=== PATIENT | female | born 1940 | race American Indian/Alaskan Native ===

== ENCOUNTER 2017-07-10 13:57 | Inpatient (IN) | payer MEDICARE ==
--- NOTE | 2017-07-10 14:40 | ED PDOC ---
Arrival/HPI - General Chief Complaint: Weakness/Neurological Deficit Time Seen by Provider: 07/10/17 14:17 Historian: Patient - History of Present Illness Narrative History of Present Illness (Text): 07/10/17 14:40 77 year old female, with past medical history of CHF, diabetes, hypertension, diverticulitis, hypothyroidism, cholecystectomy and appendectomy, presents to the Emergency department via EMS for uncontrolled blood glucose level for past couple months. Patient informs taking insulin since 3 weeks but her glucose level has been around 300 to 500 mg/dL. Patient informs visiting her PMD Dr. White, who sent her to the Emergency department for further evaluation. Patient states she "doesn't fell well" but denies any fever, chills, nausea, vomiting, diarrhea, abdominal pain, chest pain, shortness of breath or any other complaints. PMD: Dr. White Time/Duration: > month Symptom Onset: Gradual Symptom Course: Unchanged Activities at Onset: Light Context: Home Past Medical History - Provider Review Nursing Documentation Reviewed: Yes - Infectious Disease Hx of Infectious Diseases: None - Tetanus Immunization Tetanus Immunization: Unknown - Reproductive Menopause: Yes - Cardiac Hx Cardiac Disorders: Yes Hx Congestive Heart Failure: Yes Hx Hypertension: Yes - Pulmonary Hx Chronic Obstructive Pulmonary Disease (COPD): Yes - Neurological Hx Neurological Disorder: No - HEENT Hx HEENT Disorder: Yes (Wears dentures.) - Renal Hx Renal Disorder: No - Endocrine/Metabolic Hx Hypothyroidism: Yes - Hematological/Oncological Hx Blood Disorders: Yes Hx Anemia: Yes - Integumentary Hx Dermatological Disorder: Yes Other/Comment: LLE Cellulitis - Musculoskeletal/Rheumatological Hx Arthritis: Yes (OA) - Gastrointestinal Hx Gastrointestinal Disorders: Yes (DIVERTICULITIS,CHOLECYSTECTOMY,APPENDECTOMY) - Genitourinary/Gynecological Hx Reproductive Disorders: No - Psychiatric Hx Psychophysiologic Disorder: No Hx Substance Use: No Other/Comment: OBESITY - Surgical History Hx Appendectomy: Yes Hx Cholecystectomy: Yes - Anesthesia Hx Anesthesia: Yes Hx Anesthesia Reactions: No Hx Malignant Hyperthermia: No - Suicidal Assessment Feels Threatened In Home Enviroment: No Family/Social History - Physician Review Nursing Documentation Reviewed: Yes Family/Social History: No Known Family HX Smoking Status: Never Smoked Hx Alcohol Use: No Hx Substance Use: No Hx Substance Use Treatment: No Allergies/Home Meds Allergies/Adverse Reactions: Allergies No Known Allergies Allergy (Verified 09/29/15 15:12) Home Medications: Home Meds Medication Instructions Recorded Confirmed Allopurinol [Zyloprim] 100 mg PO DAILY 03/13/15 07/10/17 Atorvastatin [Lipitor] 10 mg PO DAILY 03/13/15 07/10/17 Levothyroxine [Synthroid] 25 mcg PO DAILY 03/13/15 07/10/17 Losartan [Cozaar] 100 mg PO DAILY 03/13/15 07/10/17 Glimepiride [amaRYL] 4 mg PO BID 07/10/15 07/10/17 Gabapentin [Neurontin] 100 mg PO DAILY 07/10/17 07/10/17 Insulin Detemir [Levemir] 20 unit SC HS 07/10/17 07/10/17 Pantoprazole Sodium [Protonix] 40 mg PO DAILY 07/10/17 07/10/17 amLODIPine [Norvasc] 2.5 mg PO DAILY 07/10/17 07/10/17 Review of Systems - Physician Review All systems were reviewed & negative as marked: Yes - Review of Systems Constitutional: Normal. absent: Fevers Eyes: Normal ENT: Normal Respiratory: Normal. absent: SOB Cardiovascular: Normal. absent: Chest Pain Gastrointestinal: Normal. absent: Abdominal Pain, Diarrhea, Nausea, Vomiting Genitourinary Female: Normal Musculoskeletal: Normal Skin: Normal Neurological: Normal Endocrine: Other (high blood glucose level) Hemo/Lymphatic: Normal Psychiatric: Normal Physical Exam Vital Signs Reviewed: Yes Vital Signs Temp Pulse Resp BP Pulse Ox 07/10/17 14:15 98.1 F 104 H 20 122/68 94 L Temperature: Afebrile Blood Pressure: Normal Pulse: Tachycardic Respiratory Rate: Normal Appearance: Positive for: Well-Appearing, Non-Toxic, Comfortable Pain Distress: None Mental Status: Positive for: Alert and Oriented X 3 - Systems Exam Head: Present: Atraumatic, Normocephalic Pupils: Present: PERRL Extroacular Muscles: Present: EOMI Conjunctiva: Present: Normal Mouth: Present: Moist Mucous Membranes Neck: Present: Normal Range of Motion Respiratory/Chest: Present: Clear to Auscultation, Good Air Exchange. No: Respiratory Distress, Accessory Muscle Use Cardiovascular: Present: Regular Rate and Rhythm, Normal S1, S2. No: Murmurs Abdomen: No: Tenderness, Distention, Peritoneal Signs Back: Present: Normal Inspection Upper Extremity: Present: Normal Inspection. No: Cyanosis, Edema Lower Extremity: Present: Normal Inspection. No: Edema Neurological: Present: GCS=15, CN II-XII Intact, Speech Normal Skin: Present: Warm, Dry, Normal Color. No: Rashes Psychiatric: Present: Alert, Oriented x 3, Normal Insight, Normal Concentration Medical Decision Making ED Course and Treatment: 07/10/17 14:25 Impression: 77 year old female presents to the Emergency department for high blood glucose level. Plan: -- VBG -- Labs -- Chest X-ray -- Blood Culture -- Urine Culture -- Urinalysis -- Reassess and disposition Progress Notes: 07/10/17 14:[address] Goodman and Dr. Liang, who is aware and agrees with plan to treat patient with Keflex. Waiting on lab results. 07/10/17 15:17 EKG: Ordered, reviewed, and independently interpreted the EKG. Rate : 99 BPM Rhythm : NSR Interpretation : No ST-segment elevations or depressions, no T-wave inversions, normal intervals. 07/10/17 15:38 Chest X-ray reviewed by radiologist, shows no active disease. - Lab Interpretations Lab Results: 07/10/17 14:55 Lab Results 07/10/17 14:55: pO2 43, VBG pH 7.36, VBG pCO2 52.0, VBG HCO3 29.4 H, VBG Total CO2 31.0 H, VBG O2 Sat (Calc) 84.2 H, VBG Base Excess 2.8 H, VBG Potassium 4.1, Sodium 133.0, Chloride 99.0, Glucose 403 H*, Lactate 2.4 H, FiO2 21.0, Venous Blood Potassium 4.1 07/10/17 14:55: PT 11.3, INR 0.99 07/10/17 14:55: WBC 6.7 D, RBC 4.43, Hgb 13.7, Hct 40.0, MCV 90.3, MCH 30.9, MCHC 34.3, RDW 13.3, Plt Count 202, MPV 10.1, Gran % 63.5, Lymph % (Auto) 29.8, [place] % (Auto) 5.4, Eos % (Auto) 1.2 L, Baso % (Auto) 0.1, Gran # 4.27, Lymph # ( Auto) 2.0, [place] # (Auto) 0.4, Eos # (Auto) 0.1, Baso # (Auto) 0.01 07/10/17 14:11: POC Glucose (mg/dL) 351 H - RAD Interpretation Radiology Orders: 07/10/17 14:25 CHEST PORTABLE [RAD] Stat - Medication Orders Current Medication Orders: Sodium Chloride (Sodium Chloride 0.9%) 2,000 mls @ 999 mls/hr IV .Q2H1M STA Stop: 07/10/17 17:12 Discontinued Medications Insulin Human Regular (Humulin R) 7 units IVP ONCE ONE Stop: 07/10/17 15:14 Disposition/Present on Arrival - Present on Arrival History of DVT/PE: No History of Uncontrolled Diabetes: No Urinary Catheter: No History of Decub. Ulcer: No History Surgical Site Infection Following: None - Disposition
[2017-07-10 15:07] LABS: BASO # 0.01 K/mm3 (0.0-2.0); BASO % 0.1 % (0.0-3.0); EOS # 0.1 (0.0-0.7); EOS % 1.2 % (1.5-5.0); GRAN # 4.27 (1.4-6.5); GRAN % 63.5 % (50.0-68.0); HEMOGLOBIN 13.7 g/dL (12.0-16.0); LYMPH % 29.8 % (22.0-35.0); MEAN CELL VOLUME 90.3 fl (80.0-105.0); MEAN CORPUSCULAR HEMOGLOBIN 30.9 pg (25.0-35.0); MEAN CORPUSCULAR HGB CONC 34.3 g/dl (31.0-37.0); MEAN PLATELET VOLUME 10.1 fl (7.0-11.0); MONO # 0.4 (0.1-0.6); MONO % 5.4 % (1.0-6.0); RBC 4.43 10^6/uL (3.5-6.1); RED CELL DISTRIBUTION WIDTH 13.3 % (11.5-14.5); WHITE BLOOD COUNT 6.7 10^3/ul (4.5-11.0)
[2017-07-10 15:08] LABS: VENOUS BLOOD GAS BASE EXCESS 2.8 mmol/L (0.0-2.0); VENOUS BLOOD GAS PO2 43 mm/Hg (30-55); VENOUS BLOOD PH 7.36 (7.32-7.43)
[2017-07-10] MEDS ORDERED: Sodium Chloride 0.9% 2,000 ML IV STA (15:12)
[2017-07-10] MEDS ORDERED: Insulin Regular 1 UNITS/0.01 ML ML IVP ONE (15:13)
[2017-07-10 15:14] LABS: INR 0.99 (0.93-1.08); PROTHROMBIN TIME 11.3 SECONDS (9.4-12.5)
--- NOTE | 2017-07-10 15:36 | RAD ---
HISTORY: Chest Discomfort COMPARISON: 10/02/2015 FINDINGS: LUNGS: No active pulmonary disease. PLEURA: No significant pleural effusion identified, no pneumothorax apparent. CARDIOVASCULAR: Normal. OSSEOUS STRUCTURES: No significant abnormalities. VISUALIZED UPPER ABDOMEN: Normal. OTHER FINDINGS: None. IMPRESSION: No active disease.
[2017-07-10 16:02] LABS: BLOOD UREA NITROGEN 20 mg/dL (7-21); GFR AFRICAN-AMERICAN > 60; GFR NON-AFRICAN AMERICAN > 60
[2017-07-10 16:03] LABS: ALB/GLOB RATIO 1.2 (1.1-1.8); ALBUMIN 3.9 g/dL (3.0-4.8); ALT/SGPT 35 U/L (7-56); AST/SGOT 24 U/L (14-36); B-TYPE NATRIURETIC PEPTIDE 34.9 pg/mL (0-450); CALCIUM 9.9 mg/dL (8.4-10.5)
[2017-07-10 16:04] LABS: LIPASE 66 U/L (23-300)
[2017-07-10 16:06] LABS: URINE APPEARANCE SLIGHT-CLOUDY (CLEAR); URINE BILIRUBIN NEGATIVE (NEGATIVE); URINE BLOOD TRACE-LYSED (NEGATIVE); URINE COLOR LIGHT YELLOW (YELLOW); URINE GLUCOSE (UA) >=1000 mg/dL (NEGATIVE); URINE LEUKOCYTE ESTERASE MODERATE Leu/uL (NEGATIVE); URINE PROTEIN NEGATIVE mg/dL (<30 mg/dL); URINE UROBILINOGEN 0.2 E.U./dL (<1 E.U./dL)
[2017-07-10 16:13] LABS: URINE WBC TNTC /hpf (0-6)
[2017-07-10 16:34] LABS: TROPONIN I < 0.01 ng/mL
[2017-07-10 17:15] VITALS: BMI 46.7
[2017-07-10] MEDS ORDERED: Pneumococcal 23-Valent Vaccine IM ONE (17:17)
[2017-07-10 19:16] LABS: VENOUS BLOOD GAS BASE EXCESS 2.4 mmol/L (0.0-2.0); VENOUS BLOOD GAS PO2 42 mm/Hg (30-55); VENOUS BLOOD PH 7.36 (7.32-7.43)
[2017-07-10] MEDS ORDERED: Insulin Reg-HIGH-Coverage SC SCH (22:00)
[2017-07-10] MEDS ORDERED: Insulin Detemir 100 units/ml Vial (Levemir) SC SCH (22:00)
[2017-07-11 07:53] LABS: ALB/GLOB RATIO 1.1 (1.1-1.8); ALBUMIN 3.3 g/dL (3.0-4.8); ALT/SGPT 32 U/L (7-56); AST/SGOT 25 U/L (14-36); BLOOD UREA NITROGEN 16 mg/dL (7-21); CALCIUM 9.6 mg/dL (8.4-10.5); GFR AFRICAN-AMERICAN > 60; GFR NON-AFRICAN AMERICAN > 60
[2017-07-11] MEDS: Insulin Lispro (humaLOG) LOW Coverage SC SCH ×4 (07:56→22:01)
[2017-07-11] MEDS: Insulin Lispro 1 UNITS/0.01 ML SC SCH ×3 (07:56→17:27)
[2017-07-11 08:03] LABS: FREE T4 0.96 ng/dL (0.78-2.19); T4 6.6 ug/dL (5.5-11.0); TROPONIN I < 0.01 ng/mL
[2017-07-11] MEDS ORDERED: Levothyroxine 25 MCG TAB PO SCH (10:00)
[2017-07-11] MEDS ORDERED: Non Formulary Medication (Furosemide [Lasix] 40 MG) PO SCH (10:00)
[2017-07-11] MEDS: Pantoprazole 40 mg EC Tab PO SCH (10:18)
--- NOTE | 2017-07-11 11:14 | CON ---
DATE: ENDOCRINOLOGY CONSULTATION HISTORY OF PRESENT ILLNESS: This is a 77-year-old female with recent uncontrolled type 2 insulin-requiring diabetes presenting here with persistent marked hyperglycemic accelerations and generalized body weakness and progressive dizziness and lightheadedness prompting this ER evaluation and subsequent admission. She is being referred now for diabetic evaluation and management. PAST MEDICAL HISTORY: History of type 2 insulin-requiring diabetes, on a combination of Levemir given as 20 units subcu at bedtime daily with Amaryl given as 4 mg b.i.d.; history of hypertensive cardiovascular disease and dyslipidemia; history of coronary artery disease with previous admissions for congestive heart failure; history of chronic obstructive lung disease and also previous admissions for exacerbations of the same. She also has significant history of hypothyroidism, currently on levothyroxine given as 25 mcg daily; history of chronic gastritis and diverticulitis with prior admissions for abdominal pain. She has had a prior cholecystectomy and appendectomy as noted. FAMILY HISTORY: Positive for hypertension and diabetes. SOCIAL HISTORY: Patient has a supportive family. No known substance use. REVIEW OF SYSTEMS: As mentioned above. Admits to generalized body weakness with easy fatigability and tiredness and suboptimal energy level. Also admits to dizziness and lightheadedness worse on the day of admission with visual blurring and bifrontal headaches with suboptimal energy level. No chest pains or palpitations or PND, but her oral intake has been variable with nausea, dyspepsia and vague upper abdominal pains. Also admits to marked polyuria, nocturia, polydipsia and polyphagia with lower extremity painful paresthesias, especially nocturnally. PHYSICAL EXAMINATION: GENERAL: This is an obese female, in no apparent distress. VITAL SIGNS: Blood pressure of 150/90, pulse of 100 beats per minute and regular, temperature 98, respirations 20, height is 5 feet 4 inches, weight is 272 pounds. HEENT: Head normocephalic. Eyes anicteric with pink conjunctivae. Funduscopy not possible at this time. Ears, nose and throat otherwise normal. NECK: Supple. Thyroid gland is normal in size. No carotid bruits or any cervical adenopathy. CARDIOPULMONARY: Some adynamic precordium. S1, S2 is rapid and regular. LUNGS: Clear to auscultation. ABDOMEN: Flat, soft with positive bowel sounds. EXTREMITIES: No peripheral edema. Pulses are +2 bilaterally. LABORATORY DATA: Chemistry showed a BUN of 20, sodium 135, potassium 4.3, chloride 96, CO2 29, glucose 399 and creatinine 0.7. ASSESSMENT: This is a 77-year-old female with uncontrolled and decompensated type 2 insulin-requiring diabetes with marked hyperglycemic accelerations and associated dehydration with prerenal azotemia and spurious hyponatremia, most likely related to supervening secondary pancreatic especially in the light of underlying morbid obesity with increased insulin resistance and further impaired glucose tolerance thereof. PLAN OF MANAGEMENT: We will modify her current basal insulin and increase the Levemir to 30 units subcu at bedtime daily as ordered. We will modify the coverage scale to obviate hypoglycemia and detailed orders have been given. We will also be adding Humalog given as 6 units subcu t.i.d. before meals to start at breakfast time tomorrow morning as ordered. We will modify the coverage scale to obviate hypoglycemia and detailed orders have been given. We will also initiate diabetic education and dietary instructions especially for healthier food choices and weight loss efforts as noted. We will follow and advise accordingly. Ivory Wesley MD
--- NOTE | 2017-07-11 12:25 | PN ---
DATE: ENDOCRINOLOGY FOLLOWUP NOTE LOCATION: In room 365. SUBJECTIVE: This is a 77-year-old female with recent uncontrolled type 2 insulin-requiring diabetes, presenting here with marked hyperglycemic accelerations and associated generalized body weakness with increasing bouts of dizziness and lightheadedness prompting this eventual admission for further workup and management. Her glycemic levels are fluctuating, but improved and the latest glucose levels have ranged from 202-258 mg/dL. It was 304 at dinnertime last night as noted. Her latest chemistry showed a BUN of 16, sodium 138, potassium 4.1, chloride 100, CO2 of 32, glucose 223 and creatinine 0.6. Her latest thyroid study showed T4 of 6.6 with a TSH of 4.29 and a free T4 of 0.96 indicative of subclinical hypothyroidism as she is currently on levothyroxine replacement therapy. ASSESSMENT: This is a 77-year-old female with uncontrolled and decompensated type 2 insulin-requiring diabetes with a subtherapeutic insulin regimen at home given in combination with oral hypoglycemic therapy. She also has underlying morbid obesity, which can contribute to the increased insulin resistance and further impaired glucose tolerance thereof. PLAN OF MANAGEMENT: We will initiate more physiologic basal and bolus insulin drug combination with Humalog to be given as 6 units subcu t.i.d. before meals to start this morning as ordered. We will also increase the basal insulin with Levemir to be given as 30 units subcu at bedtime daily to start tonight. We will modify the coverage scale to obviate hypoglycemia and detailed orders have been given for Humalog insulin as given. We will also titrate her levothyroxine to a higher dose of 50 mcg once daily in the morning as ordered. We will obtain serial chemistries and supplement accordingly as needed and in the meantime, continue the IV hydration as ordered. We will obtain serial chemistries and supplement accordingly as needed. We will follow. Ivory Wesley MD
--- NOTE | 2017-07-11 16:26 | CARD ---
APPROVED REPORT EKG Measurement Heart [id number] <Conclusion> Normal sinus rhythm Septal infarct, age undetermined Possible Lateral infarct, age undetermined Abnormal ECG
[2017-07-11] MEDS ORDERED: Insulin Detemir 100 units/ml Vial (Levemir) SC SCH (22:00)
--- NOTE | 2017-07-12 01:19 | HP ---
DATE OF EXAM: 07/11/2017 HISTORY OF PRESENT ILLNESS: Ms. Meryl Pedro is a 77-year-old female with history of diabetes mellitus type 2, diverticulosis, hypothyroidism; presented with generalized weakness and headache. Blood sugar at home were in the range of 300 to 500 mg/dL. She was advised to go to the ER by PCP. No chills. No fever. No rigors. Diabetes mellitus has been uncontrolled. UA shows gram-positive cocci. Hypothyroidism controlled with current medications. PAST MEDICAL HISTORY: Hypertension, congestive cardiac failure, COPD, history of anemia, cellulitis, osteoarthritis. PAST SURGICAL HISTORY: Appendectomy and cholecystectomy. FAMILY HISTORY: Noncontributory. PERSONAL HISTORY: Never smoked. No history of alcohol abuse. ALLERGIES: NO KNOWN DRUG ALLERGIES. HOME MEDICATIONS: Allopurinol 100 mg daily, Lipitor 10 mg daily, levothyroxine 25 mcg daily, losartan 100 mg daily, ., Neurontin 100 mg daily, Levemir 20 units subcutaneous every 8, Protonix 40 mg daily, Norvasc 2.5 mg daily. REVIEW OF SYSTEMS: As per HPI. Rest of the 12-point review of systems reviewed, negative. PHYSICAL EXAMINATION: GENERAL: Comfortable in bed, in no acute distress. VITAL SIGNS: Temperature 98.1, heart rate 80 per minute, respiratory rate 18 per minute, blood pressure 120/60, pulse ox is 94% on room air. HEENT: normal. NECK: No lymphadenopathy. CHEST: Air entry present and equal bilaterally. No added sounds. CARDIOVASCULAR: S1 and S2 normal. No murmur. No gallop. ABDOMEN: Soft, nontender. No hepatosplenomegaly. EXTREMITIES: No edema. CENTRAL NERVOUS SYSTEM: Alert, oriented x3. No focal sensory or motor deficit. LABORATORY DATA: White count 6.7, hemoglobin 13.7, hematocrit 40, platelet count 202. Glucose 351. Sodium 138, potassium 4.1, BUN 16, creatinine 0.6, total bilirubin 0.6, TSH 4.2, T4 0.9. ASSESSMENT: 1. Diabetes mellitus type 2, uncontrolled. 2. Hypertension. 3. Chronic anemia. 4. Hypothyroidism. 5. History of congestive heart failure. PLAN: She will be admitted to the hospital. We will continue Norvasc 2.5 mg daily for hypertension, allopurinol 100 mg daily. Continue Lasix 40 mg p.o. daily, Neurontin 100 mg daily, Levemir 30 mg subcutaneous at bedtime, sliding scale insulin, Januvia 100 mg daily, Protonix [address] Endocrine consultation Dr. Wesley. Cardiology consultation by Dr. Cruz. We will continue to monitor blood counts. Urine culture, preliminary, gram-positive cocci; ceftriaxone 1 g daily ordered. Sue Villa MD [email or web address]
[2017-07-12] MEDS: Levothyroxine 25 MCG TAB PO SCH (09:04)
[2017-07-12] MEDS: Pantoprazole 40 mg EC Tab PO SCH (09:05)
[2017-07-12] MEDS: Insulin Lispro 1 UNITS/0.01 ML SC SCH ×3 (09:06→17:25)
[2017-07-12] MEDS: Insulin Lispro (humaLOG) LOW Coverage SC SCH ×4 (09:06→21:33)
[2017-07-12] MEDS: cefTRIAXone 1 gm 1 GM/100 ML BAG IVPB SCH (09:07)
--- NOTE | 2017-07-12 14:20 | PN ---
DATE: ENDOCRINOLOGY FOLLOWUP LOCATION: Room 365. This is a 77-year-old female with recent uncontrolled type 2 insulin-requiring diabetes presenting here with marked hyperglycemic accelerations despite a combination of basal insulin at bedtime and oral hypoglycemic therapy during today as given and is now being followed closely for metabolic management. Her glycemic levels are fluctuating but improved and the latest glucose levels overnight have ranged from 188 to 192 and 203 mg/dL. Her latest chemistry showed a BUN of 16, sodium 138, potassium 4.1, chloride 100, CO2 32, glucose 223 and creatinine 0.6. Her thyroid study showed a T4 of 6.6 with a TSH of 4.29 and a free T4 of 0.96 indicative of subclinical hypothyroidism as noted. ASSESSMENT: This is a 77-year-old female with uncontrolled and decompensated type 2 insulin-requiring diabetes with marked hyperglycemic accelerations related to a subtherapeutic insulin regimen. She was only using basal insulin at home with oral hypoglycemic therapy as given. The underlying morbid obesity and increased insulin resistance thereof. The patient clearly needs prandial insulin regimen to cover her mealtime glucose requirement. PLAN OF MANAGEMENT: We will modify once again her basal and bolus insulin regimen and increase the Humalog to 12 units subcutaneous t.i.d. before meals to start at dinnertime today as ordered. We will also continue the low-dose correction scale using Humalog insulin as given. We will modify also the basal insulin given overnight with Levemir to be given as 34 units subcutaneous at bedtime daily to start tonight. We will obtain serial chemistries and supplement accordingly as needed. We will follow and advise accordingly. ADDENDUM: Elective bedside discussion was undertaken with the patient regarding the imperative need for a more physiologic basal and bolus insulin drug combination to optimize her metabolic goals and improve her glycemic profile on a day-to-day basis. She clearly did not respond to basal insulin alone as given and outpatient. Ivory Wesley MD
--- NOTE | 2017-07-12 15:28 | PN ---
DATE: 07/12/2017 SUBJECTIVE: The patient is seen lying in bed on Remote Telemetry. She is comfortable. She denies any chest pain or arm discomfort. Blood glucose has been 100-200 on recent checks. CURRENT MEDICATIONS: Include Cozaar 100 mg daily, Glucophage 850 mg b.i.d., Humalog 10 units before the meals, Januvia 100 mg daily, Lasix 40 mg daily, Levemir insulin 30 units at bedtime, Lipitor 10 mg daily, Neurontin 100 mg daily, amlodipine 2.5 mg daily, Protonix, Rocephin, Synthroid and Zyloprim. OBJECTIVE: GENERAL: She is an obese elderly woman. VITAL SIGNS: Her blood pressure is 136/76 with a pulse of 80 and sinus, respirations are 16. She is afebrile. HEENT: No JVD or bruits. CHEST: Clear to auscultation and percussion. HEART: PMI displaced laterally with a soft systolic murmur at left sternal border. ABDOMEN: Soft, obese, nontender. Normoactive bowel sounds. EXTREMITIES: Chronic lymph edema. DIAGNOSTIC DATA: Morning blood work is pending. Cardiac enzymes were negative. IMPRESSION: 1. Chest and arm discomfort. No evidence of acute cardiac ischemia. 2. Poorly controlled diabetes, improved with insulin use. 3. History of hypertension and hyperlipidemia. RECOMMENDATIONS: Her current medications should be continued. The need for improved control discussed with her. An outpatient stress test will be arranged. From a cardiac standpoint, she appears stable for discharge home at this time. We will be happy to follow along. Kd Mckeon MD [facility]
[2017-07-12 17:01] VITALS: RESP 19; TEMP 98.3
--- NOTE | 2017-07-12 17:07 | PN ---
DATE: 07/12/2017 SUBJECTIVE: She is comfortable in bed, in no acute distress, feeling better. Her headache has resolved. She is ambulating in the room. Blood sugars are better controlled now. She is feeling less fatigued. No chest pain. No shortness of breath. Urine culture is positive for gram-positive cocci, currently on IV antibiotics. REVIEW OF SYSTEMS: As per HPI. Rest of 12-point review of systems reviewed negative. PHYSICAL EXAMINATION: GENERAL: Comfortable in bed, in no acute distress. VITAL SIGNS: Temperature 97.7, heart rate is 100 per minute, blood pressure 133/70, respiratory rate 20 per minute, oxygen saturation 95% on room air. HEENT: Pallor positive. NECK: No lymphadenopathy. CHEST: Air entry present, equal bilaterally. No added sounds. CARDIOVASCULAR: S1 and S2 normal. No murmur. No gallop. ABDOMEN: Soft, nontender. No hepatosplenomegaly. EXTREMITIES: No edema. CENTRAL NERVOUS SYSTEM: Alert, oriented x3. No focal sensory motor deficit. SKIN: No petechiae. No rash. SPINE: Nontender. LABORATORY DATA: White count 6.7, hemoglobin 13.7, hematocrit 40, platelet 202. Glucose 200, currently is 110. MEDICATIONS: Tylenol 650 every 4 hours p.r.n., allopurinol 100 mg daily, Norvasc 2.5 mg daily, Lipitor 10 mg daily, ceftriaxone 1 g daily, Neurontin 100 mg daily, Lasix 40 mg daily, Levemir 30 mg subcu at bedtime, insulin 12 units before breakfast and at bedtime, Synthroid 50 mcg daily, losartan 100 mg daily, metformin 850 b.i.d.,Januvia 100 mg daily, and Protonix 40 mg daily. ASSESSMENT: 1. Uncontrolled diabetes mellitus. 2. Hypertension. 3. Urinary tract infection. 4. Chronic anemia. PLAN: She is currently on Levemir and regular insulin. Endocrine consultation of Dr. Wesley appreciated. Ceftriaxone 1 g daily for UTI, sensitivity and culture pending. Continue Neurontin 100 mg daily for peripheral neuropathy, Lasix 40 mg daily, Tylenol 650 every 4 hours p.r.n. Hemoglobin and hematocrit stable. Likely, related to chronic disease and chronic kidney disease. Labs ordered for tomorrow. Encourage ambulation. Possible discharge tomorrow. Sue Villa MD [facility] # [id number]
[2017-07-12] MEDS ORDERED: Insulin Detemir 100 units/ml Vial (Levemir) SC SCH (22:00)
[2017-07-13 07:34] LABS: ALBUMIN 3.2 g/dL (3.0-4.8); CALCIUM 9.8 mg/dL (8.4-10.5)
[2017-07-13 07:51] VITALS: BP 135/77; PULSE 106; O2SAT 96
[2017-07-13] MEDS: Insulin Lispro (humaLOG) LOW Coverage SC SCH ×3 (07:58→16:50)
--- NOTE | 2017-07-13 08:20 | CP.PCM.PN ---
Subjective - Date & Time of Evaluation Date of Evaluation: 07/13/17 Time of Evaluation: 07:00 - Subjective Subjective: Stable on 3R. She feels better. No Chest Pain, Arm pain. No SOB. V/S noted. PE: Lungs: clear Cor.: S1S2 Abd.: soft Ext.: no edema Neuro.: alert BC X 2 NG at 48 hrs Urine C+S: + GPC Labs, BSs noted. Objective - Vital Signs/Intake and Output Vital Signs (last 24 hours): Temp Pulse Resp BP Pulse Ox 98.3 F 106 H 19 135/77 96 07/13/17 07:49 07/13/17 07:49 07/13/17 07:49 07/13/17 07:49 07/13/17 07:49 Intake and Output: 07/13/17 07/13/17 06:59 18:59 Intake Total 120 Balance 120 - Medications Medications: Current Medications Acetaminophen (Tylenol 325mg Tab) 650 mg PO Q4H PRN PRN Reason: Headache Last Admin: 07/10/17 20:46 Dose: 650 mg Allopurinol (Zyloprim) 100 mg PO DAILY [facility] Last Admin: 07/12/17 09:05 Dose: 100 mg Amlodipine Besylate (Norvasc) 2.5 mg PO DAILY [facility] Last Admin: 07/12/17 09:05 Dose: 2.5 mg Atorvastatin Calcium (Lipitor) 10 mg PO HS [facility] Last Admin: 07/12/17 21:32 Dose: 10 mg Furosemide (Lasix) 40 mg PO DAILY [facility] Last Admin: 07/12/17 09:05 Dose: 40 mg Gabapentin (Neurontin) 100 mg PO DAILY [facility] PRN Reason: Protocol Last Admin: 07/12/17 09:04 Dose: 100 mg Ceftriaxone Sodium (Rocephin 1 Gram Ivpb) 1 gm in 100 mls @ 100 mls/hr IVPB DAILY [facility] PRN Reason: Protocol Last Admin: 07/12/17 09:07 Dose: 100 mls/hr Insulin Detemir (Levemir) 34 unit SC HS [facility] Last Admin: 07/12/17 21:32 Dose: 34 unit Insulin Human Lispro (Humalog Low) 0 units SC ACHS [facility] PRN Reason: Protocol Last Admin: 07/13/17 07:58 Dose: Not Given Insulin Human Lispro (Humalog) 12 units SC AC [facility] Last Admin: 07/12/17 17:25 Dose: 12 units Levothyroxine Sodium (Synthroid) 50 mcg PO ACB [facility] Last Admin: 07/12/17 09:04 Dose: 50 mcg Losartan Potassium (Cozaar) 100 mg PO DAILY [facility] Last Admin: 07/12/17 09:05 Dose: 100 mg Metformin HCl (Glucophage) 850 mg PO BID [facility] Last Admin: 07/12/17 17:28 Dose: 850 mg Pantoprazole Sodium (Protonix Ec Tab) 40 mg PO DAILY [facility] Last Admin: 07/12/17 09:05 Dose: 40 mg Sitagliptin Phosphate (Januvia) 100 mg PO DAILY [facility] Last Admin: 07/12/17 09:04 Dose: 100 mg - Labs Labs: 07/13/17 05:45 PT 11.3 SECONDS (9.4-12.5) 07/10/17 14:55 INR 0.99 (0.93-1.08) 07/10/17 14:55 Assessment and Plan - Assessment and Plan (Free Text) Assessment: Chest and Left Arm Pain Diabetes, poorly controlled UTI HBP Obesity HLD Hypothyroidism H/O GB surgery and appendectomy As per Medicine and Endocrinology Plan out-pt nuclear stress test OOB as herve.
[2017-07-13] MEDS: Levothyroxine 25 MCG TAB PO SCH (08:28)
[2017-07-13] MEDS: Insulin Lispro 1 UNITS/0.01 ML SC SCH ×2 (08:28→12:29)
--- NOTE | 2017-07-13 09:39 | CON ---
DATE: 07/11/2017 REQUESTING PHYSICIAN: Dr. Holden REASON FOR CONSULTATION: Chest pain. HISTORY OF PRESENT ILLNESS: This is a 77-year-old woman with a history of diabetes who was sent to the emergency room from Dr. White's office yesterday with complaints of headache, arm and chest discomfort, and weakness. She has history of poorly controlled diabetes and had been recommended insulin therapy in the past, but apparently refused. Upon arrival, electrocardiogram showed nonspecific changes and she is currently pain free. She states that most of her pain involves her left arm and is unrelated to activities. She denies any associated dyspnea. Her past history is also notable for hypertension, hypothyroidism. She has undergone a prior cholecystectomy, appendectomy, and has a history of diverticulitis as well. CURRENT MEDICATIONS: Include Cozaar 100 mg daily, Glucophage 850 mg b.i.d., insulin, Januvia 100 mg daily, Lasix 40 mg daily, Levemir insulin 30 units at bedtime, Lipitor 10 mg daily, Neurontin, Norvasc 2.5 mg daily, Protonix 40 mg daily, Synthroid 25 mcg daily, and Zyloprim. ALLERGIES: NONE. SOCIAL HISTORY: She does not smoke or drink. FAMILY HISTORY: Both parents are from age-related illness. REVIEW OF SYSTEMS: Ten-point review of systems is otherwise unremarkable. PHYSICAL EXAMINATION: GENERAL: She is an obese elderly woman. VITAL SIGNS: Her blood pressure is 136/76 with pulse of 86 and sinus, respirations 14. She is afebrile. HEENT: Normocephalic, atraumatic. NECK: Supple. No JVD noted. CHEST: Few scattered rhonchi heard. HEART: PMI displaced laterally. Heart tones are distant and no pathological gallops noted. ABDOMEN: Soft, obese, nontender. Normoactive bowel sounds. EXTREMITIES: Bilateral lymph edema is present. Her left leg is wrapped. PSYCHIATRIC: Normal mood and affect. NEUROLOGIC: No gross motor or sensory deficits appreciable. She is alert and oriented x3. DIAGNOSTIC DATA: Potassium is 4.1. BUN and creatinine 16 and 0.6. Glucose is 223. Two sets cardiac enzymes are normal. White count 6.7, hemoglobin and hematocrit 13.7 and 40 with a platelet count 202,000. Electrocardiogram reveals sinus rhythm with nonspecific ST-T abnormalities. Chest x-ray reveals normal cardiac silhouette with clear lung ann. IMPRESSION: 1. Vague chest and arm discomfort, sounds more likely neuropathic in nature and doubt active cardiac ischemia at the present time. 2. Multiple cardiac risk factors given hypertension, diabetes, and age. 3. Poorly controlled diabetes, now on insulin therapy. RECOMMENDATIONS: Intensified therapy for her diabetes is advised. Third set of cardiac enzymes is pending and will be reviewed. An eventual stress test should be planned. This can be performed as an outpatient. The need for control of her diabetes and risk factors was discussed with her. Thank you for this consultation. We will be happy to follow along as needed. Kd Mckeon MD
[2017-07-13] MEDS: Pantoprazole 40 mg EC Tab PO SCH (10:02)
[2017-07-13] MEDS: cefTRIAXone 1 gm 1 GM/100 ML BAG IVPB SCH (10:02)
--- NOTE | 2017-07-13 11:30 | DS ---
HISTORY OF PRESENT ILLNESS: The patient has no complaints of any chest pain. No shortness of breath. No headaches or dizziness. She initially was admitted to the hospital because she had uncontrolled diabetes. Her sugars have been better controlled with the regimen that was placed on by Dr. Wesley, the order selector on the case. PHYSICAL EXAMINATION: VITAL SIGNS: Temperature is 98.3, pulse of 106, blood pressure is 135/77, respirations 19. GENERAL: The patient is lying in bed, flat, comfortable. HEENT: No oral lesion. Anicteric sclerae. Moist mucosa. NECK: No JVD, adenopathy, or thyromegaly. CARDIOVASCULAR: S1 and S2, regular. No murmurs, rubs, or gallops. LUNGS: Clear to auscultation bilaterally. No wheeze, rales, or rhonchi. ABDOMEN: Bowel sounds are positive, soft, nontender and nondistended. EXTREMITIES: No cyanosis, clubbing or edema. LABORATORY DATA: Creatinine is 1.2. ASSESSMENT: 1. Diabetes type 2, improved. 2. Hypertension. 3. Urinary tract infection secondary to gram-positive cocci. 4. Obese with a body mass index of 46. PLAN: The patient is currently admitted to the hospital. She is on metformin, Januvia, Humalog and Levemir for her diabetes. She gets much better. I did speak to the patient's order selector, Dr. Wesley. She suggested that the patient should continue her current regimen. The patient is on Lipitor for dyslipidemia. She is on Neurontin for neuropathy. She is on Norvasc for hypertension. The patient is on Synthroid for hypothyroidism. She is on a heart-healthy diet. The patient has urine cultures that are positive and the results are pending. We will wait for the results and then see if the patient can have her IV antibiotics changed over to p.o. CONDITION: Stable. ACTIVITIES: Increase as tolerated. FOLLOWUP: Follow with Dr. White in 1 to 2 weeks. Praneeth Holden MD
--- NOTE | 2017-07-14 09:00 | PN ---
DATE: 07/13/2017 ENDOCRINOLOGY FOLLOWUP NOTE LOCATION: In room 365. SUBJECTIVE: This is a 77-year-old female with recent uncontrolled type 2 insulin-requiring diabetes, now presenting here with marked hyperglycemic accelerations and clearly has suboptimal metabolic profile with an A1c of 13.7%, and has been given a more physiologic basal and bolus insulin drug combination with remarkable metabolic improvement thereof. Her glucose values today have ranged from 136 to 140 mg/dL, and it was 113 at bedtime last night. Her latest chemistry showed a BUN of 30, sodium 138, potassium 4.3, chloride 99, CO2 of 33, glucose 149, and creatinine of 1.2. ASSESSMENT AND PLAN: So at this time, we will continue the same basal and bolus insulin regimen with Humalog given as 12 units subcu t.i.d. before meals and Levemir given as 34 units subcu at bedtime daily as given. We will continue also the oral hypoglycemic therapy given as Januvia at 100 mg daily and metformin at 850 mg t.i.d. The patient actually has to be taught insulin self-administration as her granddaughter apparently has been giving the insulin at home. The imperative need for tighter metabolic control emphasized at this time. We will follow. Ivory Wesley MD
== END 2017-07-13 18:21 | disposition home health service (06) | DRG 638 ==
LOC: ED 13:57 → ERH 15:14 → 3RNO 16:38
PROVIDERS: ADMIT Internal Medicine Nephrology; ATTEND Internal Medicine Nephrology
DX: E11.65 Type 2 diabetes mellitus with hyperglycemia (principal); E87.1 Hypo-osmolality and hyponatremia; N39.0 Urinary tract infection, site not specified; Z68.42 Body mass index [BMI] 45.0-49.9, adult; E11.42 Type 2 diabetes mellitus with diabetic polyneuropathy; D64.9 Anemia, unspecified; E03.9 Hypothyroidism, unspecified; E66.01 Morbid (severe) obesity due to excess calories; E78.5 Hyperlipidemia, unspecified; E86.0 Dehydration; I11.0 Hypertensive heart disease with heart failure; I25.10 Atherosclerotic heart disease of native coronary artery without angina pectoris; I50.9 Heart failure, unspecified; J44.9 Chronic obstructive pulmonary disease, unspecified; Z79.4 Long term (current) use of insulin; Z79.899 Other long term (current) drug therapy; Z90.49 Acquired absence of other specified parts of digestive tract

== ENCOUNTER 2017-10-26 14:15 | Emergency (ER) | payer MEDICARE, BC ==
--- NOTE | 2017-10-26 14:35 | ED PDOC ---
Arrival/HPI - General Time Seen by Provider: 10/26/17 14:22 Historian: Patient, Spouse - History of Present Illness Narrative History of Present Illness (Text): 10/26/17 14:34 Patient is not in the room 10/26/17 14:48 This 77 year old female, with past medical history of CHF, diabetes, hypertension, diverticulitis, hypothyroidism, cholecystectomy and appendectomy, presents to the Emergency department c/o of feeling chills x 3 days. Patient stated she saw Dr. Avendano to day for her routine Perinatal Nurse evaluation. Dr. Avendano found patient to have 2 new right lower leg diabetic ulcers. Because of the ulcer and patient c/o chills, patient was recommended to come to ED for evaluation. Patient denies other complains. Time/Duration: Other (see hpi) Context: Home Past Medical History - Provider Review Nursing Documentation Reviewed: Yes - Infectious Disease Hx of Infectious Diseases: None - Tetanus Immunization Tetanus Immunization: Unknown - Cardiac Hx Cardiac Disorders: Yes Hx Congestive Heart Failure: Yes Hx Hypertension: Yes - Pulmonary Hx Chronic Obstructive Pulmonary Disease (COPD): Yes - Neurological Hx Neurological Disorder: No - HEENT Hx HEENT Disorder: Yes (Wears dentures.) - Renal Hx Renal Disorder: No - Endocrine/Metabolic Hx Hypothyroidism: Yes - Hematological/Oncological Hx Blood Disorders: Yes Hx Anemia: Yes - Integumentary Hx Dermatological Disorder: Yes Other/Comment: LLE Cellulitis - Musculoskeletal/Rheumatological Hx Arthritis: Yes (OA) - Gastrointestinal Hx Gastrointestinal Disorders: Yes (DIVERTICULITIS,CHOLECYSTECTOMY,APPENDECTOMY) - Genitourinary/Gynecological Hx Reproductive Disorders: No - Psychiatric Hx Psychophysiologic Disorder: No Hx Substance Use: No Other/Comment: OBESITY - Surgical History Hx Appendectomy: Yes Hx Cholecystectomy: Yes - Anesthesia Hx Anesthesia: Yes Hx Anesthesia Reactions: No Hx Malignant Hyperthermia: No - Suicidal Assessment Feels Threatened In Home Enviroment: No Family/Social History - Physician Review Nursing Documentation Reviewed: Yes Family/Social History: Other (noncontributory) Smoking Status: Never Smoked Hx Alcohol Use: No Hx Substance Use: No Hx Substance Use Treatment: No Allergies/Home Meds Allergies/Adverse Reactions: Allergies No Known Allergies Allergy (Verified 09/29/15 15:12) Home Medications: Home Meds Medication Instructions Recorded Confirmed Levothyroxine [Synthroid] 25 mcg PO DAILY 03/13/15 10/26/17 Review of Systems - Review of Systems Constitutional: Normal. absent: Fatigue, Weight Change, Fevers Eyes: Normal ENT: Normal Respiratory: Normal Cardiovascular: Normal Gastrointestinal: Normal Genitourinary Female: Normal Musculoskeletal: Normal Skin: Other (see hpi) Neurological: Normal Endocrine: Normal Hemo/Lymphatic: Normal Psychiatric: Normal Physical Exam Vital Signs Temp Pulse Resp BP Pulse Ox 10/26/17 19:50 76 18 146/78 98 10/26/17 14:16 98.1 F 90 18 150/98 H 96 Temperature: Afebrile Blood Pressure: Normal Pulse: Regular Respiratory Rate: Normal Appearance: Positive for: Well-Appearing, Non-Toxic, Comfortable Pain Distress: None Mental Status: Positive for: Alert and Oriented X 3 - Systems Exam Head: Present: Atraumatic, Normocephalic Pupils: Present: PERRL Extroacular Muscles: Present: EOMI Conjunctiva: Present: Normal Mouth: Present: Moist Mucous Membranes Neck: Present: Normal Range of Motion Respiratory/Chest: Present: Clear to Auscultation, Good Air Exchange. No: Respiratory Distress, Accessory Muscle Use Cardiovascular: Present: Regular Rate and Rhythm, Normal S1, S2. No: Murmurs Abdomen: No: Tenderness, Distention, Peritoneal Signs Back: Present: Normal Inspection Upper Extremity: Present: Normal Inspection. No: Cyanosis, Edema Lower Extremity: Present: NORMAL PULSES, Normal ROM, Neurovascularly Intact, Capillary Refill < 2 s, Other ((+) 3 cm ulcer statge 2 located right anterior lower leg, and 1 cm ulcer stage 2 posterior right lower leg. Right lower leg has extensive plaque over skin.). No: Edema, CALF TENDERNESS, Temperature Abnormalties Neurological: Present: GCS=15, CN II-XII Intact, Speech Normal Skin: Present: Warm, Dry, Normal Color. No: Rashes Psychiatric: Present: Alert, Oriented x 3, Normal Insight, Normal Concentration Medical Decision Making ED Course and Treatment: 10/26/17 19:35 I offered patient to be admitted for diabetic leg ulcers and chills. Patient stated she feels well, and she prefers to see her doctor as out-patient. Re-evaluation. Patient feels better. Discussed results and plan with patient who expresses understanding. All questions answered and there is agreement with the plan to discharge home with instructions. Patient stable for discharge. Return if symptoms persist or worsen. Re-evaluation Time: 19:38 Reassessment Condition: Re-examined, Improved - Lab Interpretations Lab Results: 10/26/17 15:50 10/26/17 15:50 Lab Results 10/26/17 18:10: POC Glucose (mg/dL) 81 10/26/17 18:00: Urine Color Yellow, Urine Appearance Clear, Urine pH 6.0, Ur Specific [place] 1.025, Urine Protein Negative, Urine Glucose (UA) Negative, Urine Ketones Negative, Urine Blood Negative, Urine Nitrate Negative, Urine Bilirubin Negative, Urine Urobilinogen 0.2, Ur Leukocyte Esterase Negative 10/26/17 17:00: POC Glucose (mg/dL) 64 L 10/26/17 15:50: Sodium 144, Chloride 102, Potassium 4.2, Carbon Dioxide 31, Anion Gap 15, BUN 28 H, Creatinine 0.9, Est GFR ( Amer) > 60, Est GFR ( Non-Af Amer) > 60, Random Glucose 77, Calcium 9.2, Phosphorus 3.8, Magnesium 2.1 , Total Bilirubin 0.4, AST 41 H D, ALT 37, Alkaline Phosphatase 82, Total Protein 8.0, Albumin 4.1, Globulin 4.0, Albumin/Globulin Ratio 1.0 L 10/26/17 15:50: pO2 45, VBG pH 7.32, VBG pCO2 63.0 H, VBG HCO3 32.5 H, VBG Total CO2 34.4 H, VBG O2 Sat (Calc) 83.4 H, VBG Base Excess 4.5 H, VBG Potassium 4.1, Sodium 141.0, Chloride 108.0 H, Glucose 74, Lactate 1.4, FiO2 21.0, Venous Blood Potassium 4.1 10/26/17 15:50: PT 11.5, INR 1.01, APTT 24.5 L 10/26/17 15:50: Procalcitonin 0.25 10/26/17 15:50: WBC 9.8 D, RBC 3.79, Hgb 11.5 L D, Hct 34.8 L, MCV 91.8, MCH 30.3, MCHC 33.0, RDW 14.8 H, Plt Count 262, MPV 9.5, Gran % 66.5, Lymph % (Auto ) 25.2, Day % (Auto) 6.6 H, Eos % (Auto) 1.5, Baso % (Auto) 0.2, Gran # 6.48, Lymph # (Auto) 2.5, Day # (Auto) 0.6, Eos # (Auto) 0.2, Baso # (Auto) 0.02, ESR 58 H I have reviewed the lab results: Yes Interpretation: No sign. chg./baseline - RAD Interpretation Radiology Orders: 10/26/17 15:07 CHEST PORTABLE [RAD] Stat - EKG Interpretation Interpreted by ED Physician: Yes (NSR @ [address] changes) Type: 12 lead EKG Comparison: Similar to previous EKG - Medication Orders Current Medication Orders: Discontinued Medications Vancomycin HCl (Vancomycin 1gm) 1 gm in 250 mls @ 167 mls/hr IVPB STAT STA PRN Reason: Protocol Stop: 10/26/17 16:35 Last Admin: 10/26/17 18:08 Dose: 167 mls/hr eMAR Start Stop Document 10/26/17 18:08 GMD (Rec: 10/26/17 18:08 GMD [id number]) Intravenous Solution Start Date 10/26/17 Start Time 18:08 End Date 10/26/17 End time 19:38 Total Infusion Time 90 Piperacillin Sod/Tazobactam Sod (Zosyn 4.5 Gm In Ns 100ml) 4.5 gm in 100 mls @ 200 mls/hr IVPB STAT STA PRN Reason: Protocol Stop: 10/26/17 15:35 Last Admin: 10/26/17 16:55 Dose: 200 mls/hr eMAR Start Stop Document 10/26/17 16:55 GMD (Rec: 10/26/17 16:55 GMD [id number]) Intravenous Solution Start Date 10/26/17 Start Time 16:55 End Date 10/26/17 End time 17:25 Total Infusion Time 30 Disposition/Present on Arrival - Present on Arrival Any Indicators Present on Arrival: No History of DVT/PE: No History of Uncontrolled Diabetes: No Urinary Catheter: No History Surgical Site Infection Following: None - Disposition Have Diagnosis and Disposition been Completed?: Yes Diagnosis: 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 Take medication as instructed with food. Return to emergency if you develop fever or worsening symptoms. Make sure to see your doctor tomorrow Prescriptions: Cephalexin [Keflex] 500 mg PO QID #40 capsule Sulfamethoxazole/Trimethoprim [Bactrim DS 800 mg-160 mg] 1 tab PO BID #20 tab Referrals: Gladys White MD [Family Provider] - Follow up with primary
[2017-10-26 15:00] VITALS: BMI 45.2
[2017-10-26] MEDS ORDERED: Piperacill/Tazo 4.5gm in NS 4.5 GM/100 ML BAG IVPB STA (15:06)
[2017-10-26] MEDS ORDERED: Vancomycin 1gm in NS 250ml 1 GM/250 ML BAG IVPB STA (15:06)
[2017-10-26 16:12] LABS: VENOUS BLOOD GAS BASE EXCESS 4.5 mmol/L (0.0-2.0); VENOUS BLOOD GAS PO2 45 mm/Hg (30-55); VENOUS BLOOD PH 7.32 (7.32-7.43)
[2017-10-26 16:21] VITALS: RESP 18
[2017-10-26 16:25] VITALS: TEMP 98.1
[2017-10-26 16:31] LABS: ALBUMIN 4.1 g/dL (3.0-4.8); ALT/SGPT 37 U/L (7-56); AST/SGOT 41 U/L (14-36); BLOOD UREA NITROGEN 28 mg/dL (7-21); CALCIUM 9.2 mg/dL (8.4-10.5); GFR AFRICAN-AMERICAN > 60; GFR NON-AFRICAN AMERICAN > 60
[2017-10-26 16:33] LABS: BASO # 0.02 K/mm3 (0.0-2.0); BASO % 0.2 % (0.0-3.0); EOS # 0.2 (0.0-0.7); EOS % 1.5 % (1.5-5.0); GRAN # 6.48 (1.4-6.5); GRAN % 66.5 % (50.0-68.0); HEMOGLOBIN 11.5 g/dL (12.0-16.0); LYMPH # 2.5 (1.2-3.4); LYMPH % 25.2 % (22.0-35.0); MEAN CELL VOLUME 91.8 fl (80.0-105.0); MEAN CORPUSCULAR HEMOGLOBIN 30.3 pg (25.0-35.0); MEAN PLATELET VOLUME 9.5 fl (7.0-11.0); MONO # 0.6 (0.1-0.6); MONO % 6.6 % (1.0-6.0); RBC 3.79 10^6/uL (3.5-6.1); RED CELL DISTRIBUTION WIDTH 14.8 % (11.5-14.5); WHITE BLOOD COUNT 9.8 10^3/ul (4.5-11.0)
--- NOTE | 2017-10-26 16:52 | RAD ---
Date of service: 10/26/2017 HISTORY: Sepsis Patient COMPARISON: 07/10/2017. FINDINGS: LUNGS: No active pulmonary disease. PLEURA: No significant pleural effusion identified, no pneumothorax apparent. CARDIOVASCULAR: No radiographic findings to suggest acute or significant cardiovascular disease. OSSEOUS STRUCTURES: No significant abnormalities. VISUALIZED UPPER ABDOMEN: Normal. OTHER FINDINGS: None. IMPRESSION: No active disease. No significant interval change compared to the prior examination(s). Concordant results with the preliminary interpretation rendered by the emergency department physician procedure.
[2017-10-26 16:56] LABS: INR 1.01 (0.93-1.08); PARTIAL THROMBOPLASTIN TIME 24.5 Seconds (25.1-36.5); PROTHROMBIN TIME 11.5 SECONDS (9.4-12.5)
--- NOTE | 2017-10-26 19:06 | CARD ---
APPROVED REPORT Date of service: 10/26/2017 EKG Measurement Heart [id number] ME [id number] <Conclusion> Poor data quality, interpretation may be adversely affected Sinus rhythm with marked sinus arrhythmia Possible Anterior infarct, age undetermined Abnormal ECG
[2017-10-26 19:09] LABS: URINE APPEARANCE CLEAR (CLEAR); URINE BILIRUBIN NEGATIVE (NEGATIVE); URINE BLOOD NEGATIVE (NEGATIVE); URINE COLOR YELLOW (YELLOW); URINE GLUCOSE (UA) NEGATIVE (NEGATIVE); URINE LEUKOCYTE ESTERASE NEGATIVE Leu/uL (NEGATIVE); URINE PROTEIN NEGATIVE mg/dL (<30 mg/dL); URINE UROBILINOGEN 0.2 E.U./dL (<1 E.U./dL)
[2017-10-26 19:50] VITALS: BP 146/78; PULSE 76; O2SAT 98
== END 2017-10-26 21:27 | disposition home or self-care (01) ==
LOC: ED 14:15
DX: E10.622 Type 1 diabetes mellitus with other skin ulcer (principal); R68.83 Chills (without fever); E03.9 Hypothyroidism, unspecified; I50.9 Heart failure, unspecified
CPT/HCPCS: 71045; 80053; 81003; 82803; 82948; 83735; 84100; 84145; 85025; 85610; 85651; 85730; 87040; 87086; 93005; 96365; 96367; 99285; J2543

== ENCOUNTER 2018-03-19 19:19 | Inpatient (IN) | payer MEDICARE, BC ==
--- NOTE | 2018-03-19 20:13 | ED PDOC ---
Arrival/HPI - General Chief Complaint: Lower Extremity Problem/Injury Time Seen by Provider: 03/19/18 19:51 Historian: Patient - History of Present Illness Narrative History of Present Illness (Text): 03/19/18 20:12 78 year old female, whose past medical history includes CHF, COPD, chronic hemostasis, bilateral lower extremity lymphedema, hypertension, hypothyroidism, hyperlipidemia, cholecystectomy, appendectomy, presents to the emergency department complaining of worsening swelling, redness, and pain to her bilateral thighs. Patient had her legs wrapped by Dr. Avendano flavor maker. She reports a chill sensation to her right leg. Patient reports her legs are very swollen right now and has difficulty walking associated with shortness of breath while walking. She also reports her urine is very dark, but denies any fever, chest pain, abdominal pain, nausea, vomiting, diarrhea, urinary symptoms, back pain, neck pain, headache, dizziness, or any other complaints. PMD: Dr. White Can Sealer: Dr. Avendano Symptom Onset: Gradual Symptom Course: Worsening Activities at Onset: Light Context: Home Past Medical History - Provider Review Nursing Documentation Reviewed: Yes - Infectious Disease Hx of Infectious Diseases: None - Tetanus Immunization Tetanus Immunization: Unknown - Reproductive Menopause: Yes - Cardiac Hx Cardiac Disorders: Yes Hx Congestive Heart Failure: Yes Hx Hypertension: Yes - Pulmonary Hx Chronic Obstructive Pulmonary Disease (COPD): Yes - Neurological Hx Neurological Disorder: No - HEENT Hx HEENT Disorder: Yes (Wears dentures.) - Renal Hx Renal Disorder: No - Endocrine/Metabolic Hx Hypothyroidism: Yes - Hematological/Oncological Hx Blood Disorders: Yes Hx Anemia: Yes - Integumentary Hx Dermatological Disorder: Yes Other/Comment: LLE Cellulitis - Musculoskeletal/Rheumatological Hx Arthritis: Yes (OA) - Gastrointestinal Hx Gastrointestinal Disorders: Yes (DIVERTICULITIS,CHOLECYSTECTOMY,APPENDECTOMY) - Genitourinary/Gynecological Hx Reproductive Disorders: No - Psychiatric Hx Psychophysiologic Disorder: No Hx Substance Use: No Other/Comment: OBESITY - Surgical History Hx Appendectomy: Yes Hx Cholecystectomy: Yes - Anesthesia Hx Anesthesia: Yes Hx Anesthesia Reactions: No Hx Malignant Hyperthermia: No - Suicidal Assessment Feels Threatened In Home Enviroment: No Family/Social History - Physician Review Nursing Documentation Reviewed: Yes Family/Social History: No Known Family HX Smoking Status: Never Smoked Hx Alcohol Use: No Hx Substance Use: No Hx Substance Use Treatment: No Allergies/Home Meds Allergies/Adverse Reactions: Allergies No Known Allergies Allergy (Verified 03/19/18 19:35) Home Medications: Home Meds Medication Instructions Recorded Confirmed Levothyroxine [Synthroid] 25 mcg PO DAILY 03/13/15 10/26/17 Review of Systems - Physician Review All systems were reviewed & negative as marked: Yes - Review of Systems Constitutional: absent: Fevers Cardiovascular: MURRAY. absent: Chest Pain Gastrointestinal: absent: Abdominal Pain, Diarrhea, Nausea, Vomiting Genitourinary Female: Other (dark urine). absent: Dysuria, Frequency, Hematuria Musculoskeletal: Other (swelling, redness, and pain to legs). absent: Back Pain, Neck Pain Neurological: absent: Headache, Dizziness Physical Exam Vital Signs Reviewed: Yes Vital Signs Temp Pulse Resp BP Pulse Ox 03/19/18 19:35 98.7 F 86 18 136/63 97 Temperature: Afebrile Blood Pressure: Normal Pulse: Regular Respiratory Rate: Normal Appearance: Positive for: Well-Appearing, Non-Toxic, Comfortable Pain Distress: None Mental Status: Positive for: Alert and Oriented X 3, other (morbidly obese ) - Systems Exam Head: Present: Atraumatic, Normocephalic Pupils: Present: PERRL Extroacular Muscles: Present: EOMI Conjunctiva: Present: Normal Mouth: Present: Moist Mucous Membranes Neck: Present: Normal Range of Motion Respiratory/Chest: Present: Other (Crackles). No: Respiratory Distress, Accessory Muscle Use Cardiovascular: Present: Regular Rate and Rhythm, Normal S1, S2. No: Murmurs Abdomen: No: Tenderness, Distention, Peritoneal Signs Back: Present: Normal Inspection Upper Extremity: Present: Normal Inspection. No: Cyanosis, Edema Lower Extremity: Present: NORMAL PULSES (Distal pulses intact), Tenderness (to palpation to thighs), Erythema (thighs erythematous edematous), Other (Chronic venous stasis changes. LE skin intact, no drainage ) Neurological: Present: GCS=15, CN II-XII Intact, Speech Normal Skin: Present: Warm, Dry, Normal Color, Other (Lower extremity skin black flaking). No: Rashes Psychiatric: Present: Alert, Oriented x 3, Normal Insight, Normal Concentration Medical Decision Making ED Course and Treatment: 03/19/18 20:12 Impression: 78 year old female presents complaining of worsening swelling, redness, and pain to the bilateral thighs associated with difficulty walking. Plan: -- EKG -- Labs -- CXR -- Blood Culture, Urine Culture -- Urinalysis -- Reassess and disposition Prior Visits: Notes and results from previous visits were reviewed. Progress Notes: 03/19/18 20:43 CXR Impression: As read by me, no changes from pervious 10/26/17 03/19/18 21:[address] Holden covering Dr. White who is aware and agrees with plan. Accepts patient into his service and request consult with Dr. Cruz. 03/19/18 22:03 Patient states she took Lasix today, but it is not helping. Ordered 20mg of Lasix. - Lab Interpretations I have reviewed the lab results: Yes - RAD Interpretation Radiology Orders: 03/19/18 20:07 CHEST PORTABLE [RAD] Stat Bomb Squad Officer: ED Physician - EKG Interpretation Interpreted by ED Physician: Yes Type: 12 lead EKG - Scribe Statement The provider has reviewed the documentation as recorded by the Chandler Fernandez Provider Scribe Attestation: All medical record entries made by the Chandler were at my direction and personally dictated by me. I have reviewed the chart and agree that the record accurately reflects my personal performance of the history, physical exam, medical decision making, and the department course for this patient. I have also personally directed, reviewed, and agree with the discharge instructions and disposition. Disposition/Present on Arrival - Present on Arrival Any Indicators Present on Arrival: No History of DVT/PE: No History of Uncontrolled Diabetes: No Urinary Catheter: No History of Decub. Ulcer: No History Surgical Site Infection Following: None - Disposition Have Diagnosis and Disposition been Completed?: Yes Diagnosis: Dyspnea, Cellulitis of lower extremity, CHF exacerbation Disposition: HOSPITALIZED Disposition Time: 21:48 Patient Plan: Admission, Telemetry Patient Problems: Current Active Problems Problem Status Onset Cellulitis of lower extremity Acute CHF exacerbation Acute Dyspnea Acute Condition: STABLE
[2018-03-19 20:43] LABS: ALB/GLOB RATIO 0.9 (1.1-1.8); ALBUMIN 3.4 g/dL (3.0-4.8); ALT/SGPT 30 U/L (7-56); AST/SGOT 42 U/L (14-36); BLOOD UREA NITROGEN 23 mg/dL (7-21); CALCIUM 8.4 mg/dL (8.4-10.5); GFR NON-AFRICAN AMERICAN > 60
[2018-03-19 20:52] LABS: BASO # 0.02 K/mm3 (0.0-2.0); BASO % 0.2 % (0.0-3.0); EOS # 0.2 (0.0-0.7); EOS % 1.6 % (1.5-5.0); GRAN # 8.01 (1.4-6.5); GRAN % 72.3 % (50.0-68.0); LYMPH # 2.1 (1.2-3.4); LYMPH % 18.8 % (22.0-35.0); MEAN CELL VOLUME 93.4 fl (80.0-105.0); MEAN CORPUSCULAR HEMOGLOBIN 30.3 pg (25.0-35.0); MEAN CORPUSCULAR HGB CONC 32.4 g/dl (31.0-37.0); MEAN PLATELET VOLUME 9.5 fl (7.0-11.0); MONO # 0.8 (0.1-0.6); MONO % 7.1 % (1.0-6.0); RBC 3.63 10^6/uL (3.5-6.1); WHITE BLOOD COUNT 11.1 10^3/uL (4.5-11.0)
[2018-03-19 20:55] LABS: B-TYPE NATRIURETIC PEPTIDE 52.3 pg/mL (0-450); TROPONIN I < 0.01 ng/mL
[2018-03-19] MEDS ORDERED: Clindamycin 600mg/50ml D5W 600 MG/50 ML VIAL IVPB STA (22:01)
[2018-03-20 00:19] LABS: URINE BILIRUBIN NEGATIVE (NEGATIVE); URINE BLOOD NEGATIVE (NEGATIVE); URINE GLUCOSE (UA) NEGATIVE (NEGATIVE); URINE LEUKOCYTE ESTERASE NEGATIVE Leu/uL (NEGATIVE); URINE PROTEIN NEGATIVE mg/dL (<30 mg/dL); URINE UROBILINOGEN 0.2 E.U./dL (<1 E.U./dL)
[2018-03-20 00:28] LABS: URINE APPEARANCE CLEAR (CLEAR); URINE COLOR YELLOW (YELLOW)
[2018-03-20 03:13] VITALS: BMI 47.3
--- NOTE | 2018-03-20 09:10 | RAD ---
HISTORY: SOB COMPARISON: Chest x-ray performed 10/26/17, CT chest performed 09/29/15 TECHNIQUE: Chest, one view. FINDINGS: Examination limited by habitus and patient obliquity. LUNGS: Prominent right hilar opacity re-identified, previously characterized on CT of the chest from 09/29/15, as an enlarged pulmonary artery. Please note that chest x-ray has limited sensitivity for the detection of pulmonary masses. PLEURA: No significant pleural effusion identified. No definite pneumothorax . CARDIOVASCULAR: Cardiomegaly. Ectatic aorta. OSSEOUS STRUCTURES: Degenerative changes. VISUALIZED UPPER ABDOMEN: Unremarkable. OTHER FINDINGS: None. IMPRESSION: Stable chest. See above.
--- NOTE | 2018-03-20 09:44 | CON ---
DATE: 03/20/2018 REQUESTING PHYSICIAN: Dr. Holden REASON FOR CONSULTATION: Dyspnea, leg edema. HISTORY: This is a 78-year-old woman with a history of diabetes, COPD, chronic lymphedema, who presents to emergency room with worsening erythema and edema of her legs radiating to her thighs. She is under the care of Dr. Avendano for chronic lymphedema and cellulitis. She also complains of some dyspnea and she was admitted. She denies any chest pain. PAST MEDICAL HISTORY: Notable for the problems mentioned above. She has undergone a prior appendectomy, cholecystectomy and has had diverticulitis. She does have chronic cellulitis as well as chronic obesity. She has a history of hypothyroidism as well. CURRENT MEDICATIONS: Include Lasix and clindamycin. ALLERGIES: SHE HAS NO REPORTED ALLERGIES. SOCIAL HISTORY: She does not smoke or drink. FAMILY HISTORY: Both parents are from age-related illness. REVIEW OF SYSTEMS: Ten-point review of systems is otherwise unremarkable. She does have difficulty ambulating due to her leg issues. PHYSICAL EXAMINATION: GENERAL: She is an obese elderly woman. VITAL SIGNS: Her blood pressure is 150/70 with a pulse of 90 and sinus, respirations are 16, she is afebrile. HEENT: Normocephalic, atraumatic. NECK: Supple. No JVD noted. CHEST: Few scattered rhonchi heard. HEART: PMI displaced laterally with systolic murmur in lower left sternal border. ABDOMEN: Soft, nontender, obese, with normoactive bowel sounds. EXTREMITIES: 3+ edema present to her thighs. SKIN: Extensive bilateral cellulitic changes noted in both lower extremities below the knee. PSYCHIATRIC: Normal mood and affect. NEUROLOGIC: Alert and oriented x3. No gross motor or sensory deficits noted. DIAGNOSTIC DATA: White count 11.1, hemoglobin and hematocrit 11 and 33.9 with a platelet count of 234,000. Potassium 3.8, BUN and creatinine of 23 and 0.9, glucose 125. Troponin is negative. BNP is 52. Urinalysis unremarkable. Chest x-ray reveals borderline cardiac silhouette enlargement with increased perihilar vascular markings. Electrocardiogram reveals sinus rhythm with possible anteroseptal wall myocardial infarction pattern. IMPRESSION: 1. Severe bilateral leg cellulitis, likely due to chronic lymphedema and possible obesity-hypoventilation syndrome. 2. History of chronic obstructive pulmonary disease. 3. Rest of problems as noted. RECOMMENDATIONS: IV Lasix will be administered for now. Local wound care is advised. Leg elevation should continue. Serial blood work will be obtained. An echocardiogram will be obtained to assess her right and left ventricular size as well as function. Further recommendations will be made based upon her clinical course. Thank you for this consultation. Kd Mckeon MD
[2018-03-20] MEDS ORDERED: Oxycodone/Acetaminophen 5/325 mg Tab PO PRN (10:14)
[2018-03-20] MEDS: Pantoprazole 40 mg EC Tab PO SCH (11:46)
[2018-03-20] MEDS: Potassium Chloride 20 mEq ER Tab PO SCH ×2 (11:46→18:50)
[2018-03-20] MEDS: Insulin Lispro 1 UNITS/0.01 ML SC SCH (11:46)
--- NOTE | 2018-03-20 14:47 | CARD ---
APPROVED REPORT Date of service: 03/19/2018 EKG Measurement Heart [id number] <Conclusion> Normal sinus rhythm Septal infarct, age undetermined Abnormal ECG
[2018-03-20] MEDS: Enoxaparin 30 mg Syringe SC SCH (18:50)
[2018-03-20] MEDS: Insulin Detemir 100 units/ml Vial (Levemir) SC SCH (21:50)
--- NOTE | 2018-03-21 00:35 | HP ---
DATE OF EXAM: 03/20/2018 HISTORY OF PRESENT ILLNESS: Patient is a 78-year-old came to emergency room. She thinks she has been retaining fluids. She complains of being short of breath, complain of bilateral leg swelling and pain in the right thigh. Patient states she has been having increasingly short of breath for last few days and complaining of feeling tired, fatigue, and unable to walk small distance. Patient states she lives alone and has home health aide. PAST MEDICAL HISTORY: She has significant past medical history of: 1. Insulin-dependent diabetes. 2. COPD. 3. Chronic bilateral stasis dermatitis with crusty lesions on both legs and she is under care of Dr. Avendano for that. 4. Chronic lymphedema. 5. Morbid obesity. 6. Deconditioning. 7. Difficulty walking. PAST SURGICAL HISTORY: Significant for: 1. Appendectomy. 2. Cholecystectomy. ALLERGIES: SHE IS NOT ALLERGIC TO ANY MEDICATIONS. MEDICATION AT HOME: She is on metformin 850 twice a day, Januvia 100 mg daily, Protonix 40 daily, Cozaar 100 mg daily, levothyroxine 25 mcg daily, Humalog 12 unit before breakfast, Levemir 34-unit at bedtime, Neurontin 100 mg daily, Lipitor 10 mg at bedtime, allopurinol 100 mg daily, amlodipine 2.5 mg daily, Lasix 40 mg daily and Keflex 500 q.i.d. SOCIAL HISTORY: She lives at home with home health aide to take care of her daily needs. REVIEW OF SYSTEMS: Significant for increasing weakness, increasing shortness breath, weight gain and bilateral leg swelling. PHYSICAL EXAMINATION: GENERAL: She is awake and alert, short of breath. VITAL SIGNS: She has temperature 99.8, pulse 83, respirations 18, blood pressure 151/72. LUNGS: Bilateral decreased breath sounds in the bases. HEART: S1 and S2 audible. ABDOMEN: Soft, obese, and nontender. No rebound and no guarding. NEUROLOGIC: The patient is awake and alert. Able to communicate. EXTREMITIES: Complain of pain at the right thigh area bilateral legs. She has chronic stasis dermatitis with crusty black lesions. LABORATORY EXAMINATION: WBC is 11.1, hemoglobin 11, hematocrit 33.9 and platelets 234. Chemistry: Sodium 139, potassium 3.8, chloride 102, CO2 of 32, BUN 23, creatinine 0.9 and blood sugar of 90. Urinalysis is unremarkable. X-ray of chest was done shows degenerative disk disease and lungs shows hilar opacity. An EKG shows normal sinus rhythm with previous septal infarct. ASSESSMENT: 1. Congestive heart failure exacerbation. 2. Morbid obesity. 3. Insulin-dependent diabetes. 4. Hypertension. 5. Chronic stasis dermatitis. 6. Chronic obstructive pulmonary disease. PLAN: So, plan is we will start patient on her usual medication. We will monitor her blood sugar. She has been started on Lasix 40 twice a day. Podiatry team will be following patient's bilateral leg chronic issue. I will resume her medications. We will follow her CBC and CMP in a.m. and adjust her medication accordingly. Randi Dykes MD
[2018-03-21 07:25] LABS: BASO # 0.04 K/mm3 (0.0-2.0); BASO % 0.4 % (0.0-3.0); EOS # 0.2 (0.0-0.7); EOS % 1.6 % (1.5-5.0); GRAN # 6.3 (1.4-6.5); HEMOGLOBIN 10.7 g/dL (12.0-16.0); LYMPH # 2.4 (1.2-3.4); LYMPH % 24.8 % (22.0-35.0); MEAN CELL VOLUME 94.4 fl (80.0-105.0); MEAN CORPUSCULAR HEMOGLOBIN 29.7 pg (25.0-35.0); MEAN CORPUSCULAR HGB CONC 31.5 g/dl (31.0-37.0); MEAN PLATELET VOLUME 9.4 fl (7.0-11.0); MONO # 0.8 (0.1-0.6); MONO % 8.2 % (1.0-6.0); RBC 3.6 10^6/uL (3.5-6.1); WHITE BLOOD COUNT 9.7 10^3/uL (4.5-11.0)
[2018-03-21 08:08] LABS: ALB/GLOB RATIO 0.9 (1.1-1.8); ALBUMIN 3.4 g/dL (3.0-4.8); ALT/SGPT 25 U/L (7-56); AST/SGOT 26 U/L (14-36); BLOOD UREA NITROGEN 19 mg/dL (7-21); CALCIUM 8.2 mg/dL (8.4-10.5); GFR NON-AFRICAN AMERICAN 54
[2018-03-21] MEDS: Insulin Lispro 1 UNITS/0.01 ML SC SCH (08:30)
[2018-03-21] MEDS: Levothyroxine 25 MCG TAB PO SCH (09:47)
[2018-03-21] MEDS: Potassium Chloride 20 mEq ER Tab PO SCH ×2 (09:47→17:58)
[2018-03-21] MEDS: Pantoprazole 40 mg EC Tab PO SCH (09:47)
[2018-03-21] MEDS: Enoxaparin 30 mg Syringe SC SCH (09:50)
[2018-03-21] MEDS ORDERED: metOLazone 5 MG TAB PO SCH (10:00)
[2018-03-21] MEDS ORDERED: Magnesium Citrate Oral SOL (300 ml) PO ONE (10:39)
--- NOTE | 2018-03-21 10:53 | PN ---
DATE: 03/21/2018 SUBJECTIVE: The patient is seen lying in bed on telemetry. She feels fair. She continues to have leg edema and tenderness. Intake and output reportedly balanced yesterday. CURRENT MEDICATIONS: Include Cozaar, metformin, insulin, Januvia, potassium, Lasix 40 mg IV b.i.d., Lipitor, Lovenox, Neurontin, Protonix, Synthroid, and allopurinol. OBJECTIVE: GENERAL: She is an elderly woman who is comfortable at rest. VITAL SIGNS: Blood pressure is 150/80 with pulse of 80 in sinus, respirations are 16. She is afebrile. NECK: No JVD. CHEST: Bilateral scattered rhonchi. HEART: PMI displaced laterally, systolic murmur present at the left sternal border. ABDOMEN: Soft and nontender. Normoactive bowel sounds. EXTREMITIES: 3+ edema to the thighs with bilateral chronic cellulitic changes and extensive hyperkeratosis present. DIAGNOSTIC DATA: Potassium 4.2. BUN and creatinine 19 and 1. Glucose 164. Hemoglobin and hematocrit of 10.7 and 34, white count of 9.7, and platelet count of 243,000. IMPRESSION: 1. Bilateral leg cellulitis with chronic lymphedema. 2. History of chronic obstructive pulmonary disease. 3. Persistent volume overload. RECOMMENDATIONS: Her current medications will be continued. Zaroxolyn will be added to her regimen for the next several days in an attempt to improve diuresis. An echocardiogram is pending. Further recommendations will be made based on her clinical course and above findings. We will follow along as needed. Kd Mckeon MD
--- NOTE | 2018-03-21 11:14 | CP.PCM.CON ---
History of Present Illness - History of Present Illness History of Present Illness: Podiatry Consult Note: Dr. Avendano 75F patient, with PMHx of COPD, DM, pulmonary HTN, hypothyroidism, obesity, seen and evaluated for chronic lower extremity lymphedema. Patient states that she presented to the hospital because she felt she had too much fluid in her system. Patient states that she sees Dr. Avendano in the wound care center every two weeks for b/l lower extremity compression dressings. She denies any other pedal complaints at this time. Denies N/F/V/CP and admits to shortness of breath PMHx: COPD, DM, pulmonary HTN, hypothyroidism, obesity PSHx: appendectomy, cholecystectomy ALL: NKDA Review of Systems - Review of Systems Review of Systems: As per HPI Past Patient History - Infectious Disease Hx of Infectious Diseases: None - Tetanus Immunizations Tetanus Immunization: Unknown - Past Social History Smoking Status: Never Smoked - CARDIAC Hx Cardiac Disorders: Yes Hx Congestive Heart Failure: Yes Hx Hypertension: Yes - PULMONARY Hx Chronic Obstructive Pulmonary Disease (COPD): Yes - NEUROLOGICAL Hx Neurological Disorder: No - HEENT Hx HEENT Problems: Yes (Wears dentures.) - RENAL Hx Chronic Kidney Disease: No - ENDOCRINE/METABOLIC Hx Hypothyroidism: Yes - HEMATOLOGICAL/ONCOLOGICAL Hx Blood Disorders: Yes Hx Anemia: Yes - INTEGUMENTARY Hx Dermatological Problems: Yes Other/Comment: LLE Cellulitis - MUSCULOSKELETAL/RHEUMATOLOGICAL Hx Arthritis: Yes (OA) Hx Falls: Yes - GASTROINTESTINAL Hx Gastrointestinal Disorders: Yes (DIVERTICULITIS,CHOLECYSTECTOMY,APPENDECTOMY) - GENITOURINARY/GYNECOLOGICAL Hx Genitourinary Disorders: Yes Hx Urinary Tract Infection: Yes - PSYCHIATRIC Hx Psychophysiologic Disorder: No Other/Comment: OBESITY - SURGICAL HISTORY Hx Appendectomy: Yes Hx Cholecystectomy: Yes - ANESTHESIA Hx Anesthesia: Yes Hx Anesthesia Reactions: No Hx Malignant Hyperthermia: No Meds Allergies/Adverse Reactions: Allergies Allergy/AdvReac Type Severity Reaction Status Date / Time No Known Allergies Allergy Verified 03/19/18 19:35 - Medications Medications: Current Medications Acetaminophen (Tylenol 325mg Tab) 650 mg PO Q4H PRN PRN Reason: Headache Allopurinol (Zyloprim) 100 mg PO DAILY [facility] Last Admin: 03/21/18 09:47 Dose: 100 mg Atorvastatin Calcium (Lipitor) 10 mg PO HS [facility] Last Admin: 03/20/18 21:52 Dose: 10 mg Enoxaparin Sodium (Lovenox) 30 mg SC DAILY [facility]; Protocol Last Admin: 03/21/18 09:50 Dose: 30 mg Furosemide (Lasix) 40 mg IV BID [facility] Last Admin: 03/21/18 09:47 Dose: 40 mg Gabapentin (Neurontin) 100 mg PO DAILY [facility]; Protocol Last Admin: 03/21/18 09:46 Dose: 100 mg Insulin Detemir (Levemir) 34 unit SC HS [facility] Last Admin: 03/20/18 21:50 Dose: Not Given Insulin Human Lispro (Humalog) 12 units SC ACB [facility] Last Admin: 03/21/18 08:30 Dose: 12 unit Lactic Acid (Lac-Hydrin 12% Cream (140 G)) 0 ea TOP BID [facility] Levothyroxine Sodium (Synthroid) 25 mcg PO DAILY [facility] Last Admin: 03/21/18 09:47 Dose: 25 mcg Losartan Potassium (Cozaar) 100 mg PO DAILY [facility] Last Admin: 03/21/18 09:47 Dose: 100 mg Metformin HCl (Glucophage) 850 mg PO BID [facility] Last Admin: 03/21/18 09:46 Dose: 850 mg Metolazone (Zaroxolyn) 5 mg PO DAILY [facility] Stop: 03/24/18 10:01 Last Admin: 03/21/18 09:50 Dose: 5 mg Oxycodone/Acetaminophen (Percocet 5/325 Mg Tab) 1 tab PO Q6H PRN PRN Reason: Pain, moderate (4-7) Stop: 03/23/18 10:15 Last Admin: 03/20/18 11:45 Dose: 1 tab Pantoprazole Sodium (Protonix Ec Tab) 40 mg PO DAILY [facility] Last Admin: 03/21/18 09:47 Dose: 40 mg Potassium Chloride (K-Dur 20 Meq Er Tab) 20 meq PO BID [facility] Last Admin: 03/21/18 09:47 Dose: 20 meq Sitagliptin Phosphate (Januvia) 100 mg PO DAILY [facility] Last Admin: 03/21/18 09:46 Dose: 100 mg Physical Exam - Constitutional Appears: Well, Non-toxic, No Acute Distress - Head Exam Head Exam: ATRAUMATIC, NORMOCEPHALIC - Extremities Exam Additional comments: B/L lower extremity focused exam: Vasc: DP/PT faintly palpable secondary to edema, CFT < 3 seconds to all digits, TG warm to warm, +2 pitting edema to b/l lower extremities Ortho: Tenderness to palpation of knee and thighs. No tenderness to palpation of b/l legs. NO pain upon calf compression bilaterally. Neuro: Gross sensation intact, protective sensation diminished Derm: B/L lower extremity lichenification with significant xerosis bilaterally. No open lesions, no drainage, no erythema, no clinical signs of infection. - Neurological Exam Neurological exam: Alert, Oriented x3 - Psychiatric Exam Psychiatric exam: Normal Affect, Normal Mood Results - Vital Signs Recent Vital Signs: Last Vital Signs Temp 986 F H 03/21/18 06:00 Pulse 93 H 03/21/18 10:00 Resp 19 03/21/18 06:00 BP 143/83 03/21/18 09:47 Pulse Ox 96 03/21/18 06:00 - Labs Result Diagrams: 03/21/18 06:30 03/21/18 06:30 Labs: Laboratory Results - last 24 hr 03/20/18 03/20/18 03/20/18 11:21 16:16 21:16 WBC RBC Hgb Hct MCV MCH MCHC RDW Plt Count MPV Gran % Lymph % (Auto) [place] % (Auto) Eos % (Auto) Baso % (Auto) Gran # Lymph # (Auto) [place] # (Auto) Eos # (Auto) Baso # (Auto) Sodium Potassium Chloride Carbon Dioxide Anion Gap BUN Creatinine Est GFR ( Amer) Est GFR (Non-Af Amer) POC Glucose (mg/dL) 197 H 90 95 Random Glucose Calcium Total Bilirubin AST ALT Alkaline Phosphatase Total Protein Albumin Globulin Albumin/Globulin Ratio 03/21/18 03/21/18 03/21/18 06:30 06:30 07:09 WBC 9.7 RBC 3.60 Hgb 10.7 L Hct 34.0 L MCV 94.4 MCH 29.7 MCHC 31.5 RDW 15.0 H Plt Count 243 MPV 9.4 Gran % 65.0 Lymph % (Auto) 24.8 [place] % (Auto) 8.2 H Eos % (Auto) 1.6 Baso % (Auto) 0.4 Gran # 6.30 Lymph # (Auto) 2.4 [place] # (Auto) 0.8 H Eos # (Auto) 0.2 Baso # (Auto) 0.04 Sodium 138 Potassium 4.2 Chloride 99 Carbon Dioxide 33 Anion Gap 11 BUN 19 Creatinine 1.0 Est GFR ( Amer) > 60 Est GFR (Non-Af Amer) 54 POC Glucose (mg/dL) 156 H Random Glucose 164 H Calcium 8.2 L Total Bilirubin 0.3 AST 26 ALT 25 Alkaline Phosphatase 78 Total Protein 7.1 Albumin 3.4 Globulin 3.6 Albumin/Globulin Ratio 0.9 L Assessment & Plan - Assessment and Plan (Free Text) Assessment: 75F patient, with PMHx of COPD, DM, pulmonary HTN, obesity, seen and evaluated for chronic lower extremity lymphedema. Plan: Patient seen and evaluated Discussed patient plan with Dr. Avendano Chart, labs, vitals reviewed; afebrile, VSS Lac-Hydrin ordered and to be applied to bilateral lower extremities BID Patient advised to keep lower extremities elevated while in bed No surgical intervention at this time, patient stable from podiatry standpoint Will continue to follow patient while in house, pending d/c follow with Dr. Avendano in wound care center for continued care Than you for the consult and for allowing us to participate in the care of this patient - Date & Time Date: 03/21/18 Time: 11:07
[2018-03-21] MEDS: Ammonium Lactate 12% Cream (140 g) TOP SCH (18:00)
--- NOTE | 2018-03-21 19:49 | PN ---
DATE: 03/21/2018 SUBJECTIVE: The patient is 78-year-old, seen and examined. She states she seems to be doing a little better, less shortness of breath, no more leg pain. PHYSICAL EXAMINATION VITAL SIGNS: The patient is afebrile, pulse 80, respirations 18, blood pressure 165/82. LUNGS: Bilateral fair airflow. HEENT: Asymmetrical face. Nonicteric sclerae. [place] conjunctivae. No thyromegaly. No lymphadenopathy. HEART: S1 and S2 audible. ABDOMEN: Soft, obese, nontender. No rebound. No guarding. NEUROLOGICAL: The patient is awake, alert, oriented, able to communicate, answer appropriately. LABORATORY EXAM: WBC is 9.7, hemoglobin 10.7, hematocrit 34.0, platelets 243. Chemistry: Sodium 138, potassium 4.2, chloride 99, CO2 of 33, BUN 19, creatinine 1.0, blood sugar of 156. ASSESSMENT: 1. Congestive heart failure exacerbation. 2. Bilateral leg edema. 3. Hypertension. 4. Insulin-dependent diabetes. 5. Chronic obstructive pulmonary disease. 6. Bilateral stasis dermatitis. 7. Bilateral leg lymphedema. 8. Deconditioning and difficulty walking. 9. Constipation. PLAN: The patient will be given magnesium citrate. We will continue her on current medication. Monitor blood sugar. Followup electrolyte and CMP in a.m. She is on DVT prophylaxis. Echo is ordered. Physical therapy evaluation has been requested. Randi Dykes MD
[2018-03-21] MEDS: Insulin Detemir 100 units/ml Vial (Levemir) SC SCH (22:30)
[2018-03-22 02:33] VITALS: RESP 19
[2018-03-22 06:56] VITALS: O2SAT 97
[2018-03-22 06:59] LABS: BLOOD UREA NITROGEN 22 mg/dL (7-21); CALCIUM 8.5 mg/dL (8.4-10.5); GFR NON-AFRICAN AMERICAN 54
--- NOTE | 2018-03-22 08:16 | CP.PCM.PN ---
Subjective - Date & Time of Evaluation Date of Evaluation: 03/22/18 Time of Evaluation: 07:00 - Subjective Subjective: Stable on 2R. She feels better this AM. No CP or SOB. Still + edema V/S noted. RSR PE: Lungs: clear Cor: S1S2 Abd.: soft Ext.: + lymphedema Neuro: alert I/O= [id number]/1175 Labs noted. BC X2 NG at 48 hrs. Objective - Vital Signs/Intake and Output Vital Signs (last 24 hours): Temp Pulse Resp BP Pulse Ox 98.2 F 85 19 138/67 97 03/22/18 06:00 03/22/18 06:00 03/22/18 06:00 03/22/18 06:00 03/22/18 06:00 Intake and Output: 03/22/18 03/22/18 06:59 18:59 Intake Total 1260 Output Total 1175 Balance 85 - Medications Medications: Current Medications Acetaminophen (Tylenol 325mg Tab) 650 mg PO Q4H PRN PRN Reason: Headache Last Admin: 03/21/18 13:59 Dose: 650 mg Allopurinol (Zyloprim) 100 mg PO DAILY [facility] Last Admin: 03/21/18 09:47 Dose: 100 mg Atorvastatin Calcium (Lipitor) 10 mg PO HS [facility] Last Admin: 03/21/18 21:53 Dose: 10 mg Enoxaparin Sodium (Lovenox) 30 mg SC DAILY [facility]; Protocol Last Admin: 03/21/18 09:50 Dose: 30 mg Furosemide (Lasix) 40 mg IV BID [facility] Last Admin: 03/21/18 17:59 Dose: 40 mg Gabapentin (Neurontin) 100 mg PO DAILY [facility]; Protocol Last Admin: 03/21/18 09:46 Dose: 100 mg Insulin Detemir (Levemir) 34 unit SC HS [facility] Last Admin: 03/21/18 22:30 Dose: Not Given Insulin Human Lispro (Humalog) 12 units SC ACB [facility] Last Admin: 03/21/18 08:30 Dose: 12 unit Lactic Acid (Lac-Hydrin 12% Cream (140 G)) 0 ea TOP BID [facility] Last Admin: 03/21/18 18:00 Dose: 1 applic Levothyroxine Sodium (Synthroid) 25 mcg PO DAILY [facility] Last Admin: 03/21/18 09:47 Dose: 25 mcg Losartan Potassium (Cozaar) 100 mg PO DAILY [facility] Last Admin: 03/21/18 09:47 Dose: 100 mg Metformin HCl (Glucophage) 850 mg PO BID [facility] Last Admin: 03/21/18 17:59 Dose: 850 mg Metolazone (Zaroxolyn) 5 mg PO DAILY [facility] Stop: 03/25/18 09:01 Oxycodone/Acetaminophen (Percocet 5/325 Mg Tab) 1 tab PO Q6H PRN PRN Reason: Pain, moderate (4-7) Stop: 03/23/18 10:15 Last Admin: 03/20/18 11:45 Dose: 1 tab Pantoprazole Sodium (Protonix Ec Tab) 40 mg PO DAILY [facility] Last Admin: 03/21/18 09:47 Dose: 40 mg Potassium Chloride (K-Dur 20 Meq Er Tab) 20 meq PO BID [facility] Last Admin: 03/21/18 17:58 Dose: 20 meq Sitagliptin Phosphate (Januvia) 100 mg PO DAILY [facility] Last Admin: 03/21/18 09:46 Dose: 100 mg - Labs Labs: 03/21/18 06:30 03/22/18 06:00 Assessment and Plan - Assessment and Plan (Free Text) Assessment: Increased edema, leg discomfort Chronic Lymphedema and cellulitis Chronic MURRAY Obesity Diabetes HBP COPD Hypothyroidism Anemia H/O GB surgery and AP Diverticulitis Plan: Increase IV Lasix and continue PO metolazone Check echo OOB as herve PT Monitor: labs, I/O, sats., etc
[2018-03-22] MEDS: Insulin Lispro 1 UNITS/0.01 ML SC SCH (08:30)
[2018-03-22] MEDS: Pantoprazole 40 mg EC Tab PO SCH (09:28)
[2018-03-22] MEDS: Levothyroxine 25 MCG TAB PO SCH (09:28)
[2018-03-22] MEDS: Potassium Chloride 20 mEq ER Tab PO SCH ×2 (09:29→17:52)
[2018-03-22] MEDS: metOLazone 5 MG TAB PO SCH ×2 (09:29→12:24)
[2018-03-22] MEDS: Enoxaparin 30 mg Syringe SC SCH (09:31)
[2018-03-22] MEDS: Ammonium Lactate 12% Cream (140 g) TOP SCH ×2 (09:46→17:55)
--- NOTE | 2018-03-22 11:25 | CP.PCM.PCO ---
Physician Communication Note - Physician Communication Note Physician Communication Note: Patient cleared for TCU today if bed is available post PT eval.
--- NOTE | 2018-03-22 12:04 | DS ---
This is a 78-year-old female who has come into the hospital because of: 1. Acute congestive heart failure secondary to diastolic dysfunction. 2. Morbid obesity with a BMI of 45. 3. Chronic lower extremity skin changes secondary to venous ulcers. 4. Diabetes type 2. 5. Pulmonary hypertension. 6. Chronic obstructive pulmonary disease. 7. Gait dysfunction. 8. Lymphedema. 9. Hypothyroidism. PLAN: The patient is currently comfortable. She said that she has lost fluid in the lower legs. She does feel better. She is on losartan for her hypertension. She is on Humalog for diabetes. She is on Januvia for her diabetes as well. She is going to continue with Lasix twice a day. She is on Lipitor for dyslipidemia. She is on Lovenox for DVT prophylaxis. Her creatinine is normal. The patient is going to continue on Synthroid for hypothyroidism. She is on metolazone for her diuretic therapy. She is on allopurinol. An echocardiogram has been ordered. The patient is going to have repeat blood work done tomorrow. She is open to the idea of going to physical therapy. CT evaluation is going to be done. If she gets accepted, she will go to Transitional Care Unit today. CONDITION: Stable. ACTIVITY: Increase as tolerated. Discharge to Transitional Care if accepted. FOLLOWUP: With Dr. White, I wanted to reset for discharge. Praneeth Holden MD
[2018-03-22 17:59] VITALS: BP 104/57
[2018-03-22 18:22] VITALS: PULSE 86; TEMP 98.7
--- NOTE | 2018-03-23 10:19 | CARD ---
APPROVED REPORT Date of service: 03/22/2018 EXAM: Two-dimensional and M-mode echocardiogram with Doppler and color Doppler. Other Information Quality : AverageRhythm : INDICATION Dyspnea , edema 2D DIMENSIONS Left Atrium (2D)3.9 (1.6-4.0cm)IVSd1.2 (0.7-1.1cm) LVDd3.8 (3.9-5.9cm)PWd1.2 (0.7-1.1cm) LVDs2.4 (2.5-4.0cm)FS (%) 37.3 % LVEF (%)68.0 (>50%) M-Mode DIMENSIONS Aortic Root2.20 (2.2-3.7cm)Aortic Cusp Exc.1.70 (1.5-2.0cm) Aortic Valve AoV Peak Rldgbrlg490.0cm/s Mitral Valve MV E Xmpbjbdc27.5cm/sMV A Qpqbvhzy92.8cm/sE/A ratio0.7 TDI E/Lateral E'0.0E/Medial E'0.0 Tricuspid Valve TR Peak Hkuviorc194ep/sRAP [id number] Peak Gr.18mmHg [id number] LEFT VENTRICLE The left ventricle is normal size. There is normal left ventricular wall thickness. The left ventricular function is normal. The left ventricular ejection fraction is within the normal range. There is normal LV segmental wall motion. RIGHT VENTRICLE The right ventricle is normal size. ATRIA The left atrium size is normal. The right atrium size is normal. The interatrial septum is intact with no evidence for an atrial septal defect. AORTIC VALVE The aortic valve is normal in structure. MITRAL VALVE The mitral valve is normal in structure. TRICUSPID VALVE The tricuspid valve is normal in structure. There is trace to mild tricuspid regurgitation. PULMONIC VALVE The pulmonic valve is not well visualized. GREAT VESSELS The aortic root is normal in size. PERICARDIAL EFFUSION There is no pericardial effusion. <Conclusion> The left ventricle is normal size. There is normal left ventricular wall thickness. The left ventricular function is normal.
== END 2018-03-22 21:18 | DRG 291 ==
LOC: ED 19:19 → ERH 21:54 → 2RNO 03-20 00:03
PROVIDERS: ADMIT Internal Medicine Nephrology; ATTEND Internal Medicine Nephrology
DX: I11.0 Hypertensive heart disease with heart failure (principal); I50.31 Acute diastolic (congestive) heart failure; Z68.42 Body mass index [BMI] 45.0-49.9, adult; L03.115 Cellulitis of right lower limb; L03.116 Cellulitis of left lower limb; E66.01 Morbid (severe) obesity due to excess calories; I87.2 Venous insufficiency (chronic) (peripheral); E11.9 Type 2 diabetes mellitus without complications; I27.20 Pulmonary hypertension, unspecified; J44.9 Chronic obstructive pulmonary disease, unspecified; I89.0 Lymphedema, not elsewhere classified; E03.9 Hypothyroidism, unspecified; R26.2 Difficulty in walking, not elsewhere classified; D64.9 Anemia, unspecified; Z79.4 Long term (current) use of insulin

== ENCOUNTER 2018-03-22 21:18 | Inpatient (IN) | payer OTHER, BC ==
[2018-03-22 21:28] VITALS: BMI 45.7
[2018-03-22] MEDS ORDERED: Oxycodone/Acetaminophen 5/325 mg Tab PO PRN (21:39)
[2018-03-22] MEDS: Insulin Detemir 100 units/ml Vial (Levemir) SC SCH (22:24)
[2018-03-23] MEDS ORDERED: Influenza Vaccine 60 mcg/0.5 mL SYR (4YR UP) IM ONE (00:03)
[2018-03-23] MEDS ORDERED: Pneumococcal 23-Valent Vaccine IM ONE (00:03)
[2018-03-23] MEDS: Enoxaparin 30 mg Syringe SC SCH (06:06)
[2018-03-23] MEDS: Pantoprazole 40 mg EC Tab PO SCH (06:07)
[2018-03-23] MEDS: Levothyroxine 25 MCG TAB PO SCH (06:07)
[2018-03-23] MEDS: Insulin Lispro 1 UNITS/0.01 ML SC SCH (06:53)
--- NOTE | 2018-03-23 07:52 | CP.PCM.PN ---
Subjective - Date & Time of Evaluation Date of Evaluation: 03/23/18 Time of Evaluation: 07:00 - Subjective Subjective: Stable on TCU now. No CP or SOB V/S noted PE: Lungs: clear Cor.: S1s2 Abd: obese Ext: lymphedema Neuro.: alert I/O= 132/1200 recorded Echo done: Nl LV with LVH. See report Objective - Vital Signs/Intake and Output Vital Signs (last 24 hours): Temp Pulse Resp BP Pulse Ox 98.4 F 95 H 20 121/70 03/22/18 23:30 03/22/18 23:30 03/22/18 23:30 03/22/18 23:30 Intake and Output: 03/23/18 03/23/18 06:59 18:59 Intake Total 132 Output Total 1200 Balance -1068 - Medications Medications: Current Medications Acetaminophen (Tylenol 325mg Tab) 650 mg PO Q4H PRN; Protocol PRN Reason: Headache Allopurinol (Zyloprim) 100 mg PO DAILY [facility]; Protocol Atorvastatin Calcium (Lipitor) 10 mg PO HS [facility]; Protocol Last Admin: 03/22/18 22:59 Dose: 10 mg Enoxaparin Sodium (Lovenox) 30 mg SC 0600 [facility]; Protocol Last Admin: 03/23/18 06:06 Dose: 30 mg Furosemide (Lasix) 80 mg IVP Q12 [facility]; Protocol Last Admin: 03/22/18 22:58 Dose: 80 mg Gabapentin (Neurontin) 100 mg PO DAILY [facility]; Protocol Insulin Detemir (Levemir) 34 unit SC HS [facility]; Protocol Last Admin: 03/22/18 22:24 Dose: Not Given Insulin Human Lispro (Humalog) 12 units SC ACB [facility]; Protocol Last Admin: 03/23/18 06:53 Dose: 12 unit Lactic Acid (Lac-Hydrin 12% Cream (140 G)) 0 ea TOP BID [facility]; Protocol Levothyroxine Sodium (Synthroid) 25 mcg PO 0600 [facility]; Protocol Last Admin: 03/23/18 06:07 Dose: 25 mcg Losartan Potassium (Cozaar) 100 mg PO DAILY [facility]; Protocol Metformin HCl (Glucophage) 850 mg PO BID [facility]; Protocol Metolazone (Zaroxolyn) 5 mg PO DAILY [facility]; Protocol Oxycodone/Acetaminophen (Percocet 5/325 Mg Tab) 1 tab PO Q6H PRN; Protocol PRN Reason: moderate pain Stop: 03/25/18 21:40 Pantoprazole Sodium (Protonix Ec Tab) 40 mg PO 0600 [facility]; Protocol Last Admin: 03/23/18 06:07 Dose: 40 mg Potassium Chloride (K-Dur 20 Meq Er Tab) 20 meq PO BID [facility]; Protocol Sitagliptin Phosphate (Januvia) 50 mg PO DAILY [facility]; Protocol Assessment and Plan - Assessment and Plan (Free Text) Assessment: Increased edema and leg discomfort Chronic Lymphedema and cellulitis Chronic MURRAY COPD Obesity HBP Hypothyroidism Anemia H/O GB surgery and AP Plan: Continue Lasix IV and PO metolazone AM labs pending OOB as herve. PT/rehab Monitor: I/O, wts, labs, etc
[2018-03-23] MEDS: metOLazone 5 MG TAB PO SCH ×2 (08:18→09:55)
[2018-03-23] MEDS: Potassium Chloride 20 mEq ER Tab PO SCH ×2 (09:53→17:36)
[2018-03-23] MEDS: Ammonium Lactate 12% Cream (140 g) TOP SCH ×2 (09:54→17:37)
[2018-03-23] MEDS ORDERED: metOLazone 5 MG TAB PO SCH (10:00)
[2018-03-23] MEDS ORDERED: Unna Boot TOP ONE (11:34)
[2018-03-23] MEDS: Insulin Detemir 100 units/ml Vial (Levemir) SC SCH (22:10)
--- NOTE | 2018-03-23 22:53 | HP ---
DATE OF EXAM: 03/23/2018 CHIEF COMPLAINT AND HISTORY OF PRESENT ILLNESS: This is a 78-year-old female who is coming in from the hospital because of an acute CHF exacerbation secondary to diastolic dysfunction. She has lower extremity edema that was worsening. She has difficulty in ambulating. She was diuresed and had improvement of her symptoms. She has been transferred. She has been sent to the Transitional Care Unit for rehabilitation. She says that she has no complains of any chest pain or shortness of breath. No nausea. No vomiting. No fever, headache or chills. She does have difficulty in walking. She says she has chronic skin changes in her legs that have been chronic. She does have difficulty in ambulating. She denies any abdominal pain. No back pain. No dysuria. No frequency. No nocturia. REVIEW OF SYMPTOMS: All other review of symptoms are within normal limits, except as mentioned. ALLERGIES: SHE HAS NO KNOWN DRUG ALLERGIES. HOME MEDICATIONS: Metformin, Januvia, Protonix,Cozaar, levothyroxine, Humalog, Levemir, Neurontin, Lipitor, allopurinol, amlodipine, and Lasix. SOCIAL HISTORY: She lives at home with a home health aide. She denies smoking and drinking. FAMILY HISTORY: Noncontributory. PAST MEDICAL HISTORY: 1. Diabetes type 2. 2. COPD. 3. Chronic stasis dermatitis of the legs. 4. Chronic lymphedema. 5. Morbid obesity. PHYSICAL EXAMINATION: VITAL SIGNS: The patient has temperature of 97.3, pulse of 87, blood pressure is 124/79, respirations 18, O2 saturation 94%. GENERAL: The patient is lying in bed, comfortable, and in no acute distress. HEENT: Atraumatic and normocephalic. Anicteric sclerae. Moist mucosa. [place] conjunctivae. No oral lesions. NECK: No JVD, anterior and posterior adenopathy, thyromegaly, or bruits. CARDIOVASCULAR: S1 and S2 regular. No murmurs, rubs or gallops. LUNGS: Clear to auscultation bilaterally. No wheezes, rales, or rhonchi. ABDOMEN: Bowel sounds are positive. Soft, nontender and nondistended. No hepatosplenomegaly. No rebound and no guarding EXTREMITIES: In the lower legs there is chronic skin changes present bilaterally. There is thickening of the skin with trace edema. There is bilateral leg changes. NEUROLOGIC: No facial asymmetry. Tongue is midline. No uvula deviation. Power is 5/5 upper extremities and lower extremities. Sensation intact in upper extremities and lower extremities. PSYCHIATRIC: She is awake, alert and oriented x3. No anxiety or depression. She has normal affect. GENITOURINARY: No CVA tenderness. VASCULAR: 2+ pulses in the carotid pulses and pedal pulses. SKIN: No erythema or nodules SPINE: Shows normal curvature. LABORATORY DATA: The patient's sodium is 137, potassium is 4.7, creatinine is 1.2 and calcium is 9. ASSESSMENT: 1. Acute congestive heart failure secondary to diastolic dysfunction. 2. Morbid obesity with a BMI of 45. 3. Diabetes type 2. 4. Pulmonary hypertension. 5. Gait dysfunction. 6. Lymphedema. 7. Hypothyroidism. PLAN: The patient is given losartan for hypertension. She is on metformin for diabetes. She is on lispro insulin for her diabetes. She is also on sitagliptin for her diabetes. She is going to continue with potassium twice a day as well as Lasix twice a day. She has been followed by . She has Lovenox for DVT prophylaxis. She is on Neurontin for neuropathy. She is going to continue with levothyroxine for her hypothyroidism. She is also on metolazone for her heart failure and lower extremity edema. She has been followed by Dr. Avendano as well. She is getting physical therapy. Praneeth Holden MD
[2018-03-24] MEDS: Pantoprazole 40 mg EC Tab PO SCH (05:27)
[2018-03-24] MEDS: Enoxaparin 30 mg Syringe SC SCH (05:27)
[2018-03-24] MEDS: Levothyroxine 25 MCG TAB PO SCH (05:27)
[2018-03-24] MEDS: Insulin Lispro 1 UNITS/0.01 ML SC SCH (07:02)
--- NOTE | 2018-03-24 09:28 | CP.PCM.PN ---
<TalishaMaci - Last Filed: 03/24/18 14:39> Subjective - Date & Time of Evaluation Date of Evaluation: 03/24/18 Time of Evaluation: 13:31 - Subjective Subjective: Podiatry Progress Note: Dr. Avendano 75F patient seen and evaluated for chronic lower extremity lymphedema. Patient states that she would like her Unna boots back on her legs so that she may participate in physical therapy without worrying about her legs breaking down. She denies any other pedal complaints at this time. Denies N/F/V/CP. Objective - Vital Signs/Intake and Output Vital Signs (last 24 hours): Temp Pulse Resp BP Pulse Ox 98.3 F 92 H 18 119/70 92 L 03/23/18 16:00 03/23/18 16:00 03/23/18 16:00 03/23/18 21:30 03/23/18 16:00 Intake and Output: 03/24/18 03/24/18 06:59 18:59 Intake Total 252 Output Total 600 Balance -348 - Medications Medications: Current Medications Acetaminophen (Tylenol 325mg Tab) 650 mg PO Q4H PRN; Protocol PRN Reason: Headache Last Admin: 03/23/18 22:11 Dose: 650 mg Allopurinol (Zyloprim) 100 mg PO DAILY [facility]; Protocol Last Admin: 03/23/18 09:53 Dose: 100 mg Atorvastatin Calcium (Lipitor) 10 mg PO HS [facility]; Protocol Last Admin: 03/23/18 21:30 Dose: 10 mg Enoxaparin Sodium (Lovenox) 30 mg SC 0600 [facility]; Protocol Last Admin: 03/24/18 05:27 Dose: 30 mg Furosemide (Lasix) 80 mg IVP Q12 [facility]; Protocol Last Admin: 03/23/18 21:30 Dose: 80 mg Gabapentin (Neurontin) 100 mg PO DAILY [facility]; Protocol Last Admin: 03/23/18 09:53 Dose: 100 mg Insulin Detemir (Levemir) 34 unit SC HS [facility]; Protocol Last Admin: 03/23/18 22:10 Dose: 34 units Insulin Human Lispro (Humalog) 12 units SC ACB [facility]; Protocol Last Admin: 03/24/18 07:02 Dose: Not Given Lactic Acid (Lac-Hydrin 12% Cream (140 G)) 0 ea TOP BID [facility]; Protocol Last Admin: 03/23/18 17:37 Dose: 1 applic Levothyroxine Sodium (Synthroid) 25 mcg PO 0600 [facility]; Protocol Last Admin: 03/24/18 05:27 Dose: 25 mcg Losartan Potassium (Cozaar) 100 mg PO DAILY [facility]; Protocol Last Admin: 03/23/18 09:54 Dose: 100 mg Metformin HCl (Glucophage) 850 mg PO BID [facility]; Protocol Last Admin: 03/23/18 17:36 Dose: 850 mg Metolazone (Zaroxolyn) 5 mg PO DAILY [facility]; Protocol Last Admin: 03/23/18 09:55 Dose: Not Given Oxycodone/Acetaminophen (Percocet 5/325 Mg Tab) 1 tab PO Q6H PRN; Protocol PRN Reason: moderate pain Stop: 03/25/18 21:40 Pantoprazole Sodium (Protonix Ec Tab) 40 mg PO 0600 [facility]; Protocol Last Admin: 03/24/18 05:27 Dose: 40 mg Potassium Chloride (K-Dur 20 Meq Er Tab) 20 meq PO BID [facility]; Protocol Last Admin: 03/23/18 17:36 Dose: 20 meq Sitagliptin Phosphate (Januvia) 50 mg PO DAILY [facility]; Protocol Last Admin: 03/23/18 09:53 Dose: 50 mg - Labs Labs: 03/24/18 06:00 - Constitutional Appears: Well, Non-toxic, No Acute Distress - Head Exam Head Exam: ATRAUMATIC, NORMOCEPHALIC - Extremities Exam Additional comments: B/L lower extremity focused exam: Vasc: DP/PT faintly palpable secondary to edema, CFT < 3 seconds to all digits, TG warm to warm, +2 pitting edema to b/l lower extremities Ortho: Tenderness to palpation of knee and thighs. No tenderness to palpation of b/l legs. No pain upon calf compression bilaterally. Neuro: Gross sensation intact, protective sensation diminished Derm: B/L lower extremity lichenification with significant xerosis bilaterally. No open lesions, no drainage, no erythema, no clinical signs of infection. - Neurological Exam Neurological Exam: Alert, Awake, Oriented x3 - Psychiatric Exam Psychiatric exam: Normal Affect, Normal Mood Assessment and Plan - Assessment and Plan (Free Text) Assessment: 75F patient seen and evaluated for chronic lower extremity lymphedema. Plan: Patient seen and evaluated with Dr. Avendano Chart, labs, vitals reviewed; afebrile, VSS Unna boots applied to b/l lower extremities, dressing to remain C/D/I Continue with physical therapy Patient advised to keep lower extremities elevated while in bed Patient to follow up with Dr. Avendano upon d/c from TCU <Letty Avendano - Last Filed: 03/29/18 14:31> Objective - Vital Signs/Intake and Output Vital Signs (last 24 hours): Temp Pulse Resp BP Pulse Ox 98 F 94 H 18 96/61 L 93 L 03/26/18 16:00 03/26/18 16:00 03/26/18 16:00 03/27/18 10:11 03/26/18 16:00 - Labs Labs: 03/26/18 06:00 Attending/Attestation - Attestation I have personally seen and examined this patient.: Yes I have fully participated in the care of the patient.: Yes I have reviewed all pertinent clinical information, including history, physical exam and plan: Yes
[2018-03-24] MEDS: metOLazone 5 MG TAB PO SCH (09:50)
[2018-03-24] MEDS: Potassium Chloride 20 mEq ER Tab PO SCH (09:51)
[2018-03-24] MEDS: Ammonium Lactate 12% Cream (140 g) TOP SCH ×2 (09:52→17:22)
--- NOTE | 2018-03-24 20:30 | PN ---
DATE: 03/24/2018 SUBJECTIVE: The patient has no complaints of any chest pain. No shortness of breath. No headaches. PHYSICAL EXAMINATION: VITAL SIGNS: Temperature is 98.3, pulse of 92, blood pressure is 108/70, and respirations 18. GENERAL: The patient is lying in bed, flat, comfortable. HEENT: No oral lesion. Anicteric sclerae. Moist mucosa. NECK: No JVD, adenopathy, or thyromegaly. CARDIOVASCULAR: S1 and S2, regular. No murmurs, rubs, or gallops. LUNGS: Clear to auscultation bilaterally. No wheeze, rales, or rhonchi. ABDOMEN: Bowel sounds are positive, soft, nontender and nondistended. EXTREMITIES: No cyanosis, clubbing, or edema. LABORATORY DATA: Potassium is 5.2, creatinine is 2.2. ASSESSMENT: 1. Acute congestive heart failure, secondary to diastolic dysfunction. 2. Lower extremity edema, improved. 3. Hypokalemia. 4. Diabetes type 2. 5. Pulmonary hypertension. 6. Gait dysfunction. 7. Morbid obesity with a body mass index of 45. 8. Lymphedema. 9. Hypothyroidism. PLAN: The patient has elevated creatinine. I will follow up on the patient's diuretic therapy. The patient is also getting metolazone. We will discontinue the patient's metolazone at this point. She is on potassium and we will hold the patient's potassium. We will repeat her labs in the morning. She is increasing her physical therapy. Praneeth Holden MD
[2018-03-24] MEDS: Insulin Detemir 100 units/ml Vial (Levemir) SC SCH (23:17)
[2018-03-25] MEDS: Levothyroxine 25 MCG TAB PO SCH (06:15)
[2018-03-25] MEDS: Pantoprazole 40 mg EC Tab PO SCH (06:15)
[2018-03-25] MEDS: Enoxaparin 30 mg Syringe SC SCH (06:15)
[2018-03-25] MEDS: Insulin Lispro 1 UNITS/0.01 ML SC SCH (07:05)
[2018-03-25 07:47] LABS: CALCIUM 9.1 mg/dL (8.4-10.5)
[2018-03-25] MEDS: Ammonium Lactate 12% Cream (140 g) TOP SCH ×2 (09:18→17:29)
--- NOTE | 2018-03-25 10:43 | PN ---
DATE: 03/25/2018 SUBJECTIVE: The patient has no complaints of any chest pain. No shortness of breath. No headache. PHYSICAL EXAMINATION: VITAL SIGNS: Temperature is 97.9, pulse of 96, blood pressure 99/63 and respirations are 18. GENERAL: The patient is lying in bed, flat, comfortable. HEENT: No oral lesion. Anicteric sclerae. Moist mucosa. NECK: No JVD, adenopathy, or thyromegaly. CARDIOVASCULAR: S1 and S2, regular. No murmurs, rubs, or gallops. LUNGS: Clear to auscultation bilaterally. No wheeze, rales, or rhonchi. ABDOMEN: Bowel sounds are positive, soft, nontender and nondistended. EXTREMITIES: No cyanosis, clubbing or edema. Lower extremity has chronic skin changes in the legs. LABORATORY DATA: Potassium is 5.2 and creatinine is 1.7. ASSESSMENT: 1. Acute kidney injury, secondary to prerenal azotemia. 2. Hyperkalemia. 3. Lower extremity edema, improved. 4. Diabetes type 2. 5. Pulmonary hypertension. 6. Gait dysfunction. 7. Lymphedema. 8. Hypothyroidism. 9. Morbid obesity with body mass index of 45. PLAN: The patient's creatinine is improving. She has been off of her diabetics. The patient was on potassium that was discontinued yesterday. I will continue to keep her off her diabetic therapy. She is on metformin, but it is on hold, because of the elevated creatinine. The patient is on sitagliptin for her diabetes. She is on insulin for her diabetes. She is on Lipitor for dyslipidemia. She is on Lovenox for DVT prophylaxis. She is receiving Percocet for pain. I will continue her Synthroid for her hypothyroidism. She is on allopurinol. She will have repeat blood work done tomorrow. Praneeth Holden MD
[2018-03-25 16:43] VITALS: RESP 18; O2SAT 93
[2018-03-25] MEDS: Insulin Detemir 100 units/ml Vial (Levemir) SC SCH (22:08)
[2018-03-26] MEDS: Enoxaparin 30 mg Syringe SC SCH (05:23)
[2018-03-26] MEDS: Levothyroxine 25 MCG TAB PO SCH (05:23)
[2018-03-26] MEDS: Pantoprazole 40 mg EC Tab PO SCH (05:23)
[2018-03-26] MEDS: Insulin Lispro 1 UNITS/0.01 ML SC SCH (06:45)
[2018-03-26 06:56] LABS: CALCIUM 8.9 mg/dL (8.4-10.5)
[2018-03-26] MEDS: Ammonium Lactate 12% Cream (140 g) TOP SCH ×2 (10:17→17:48)
--- NOTE | 2018-03-26 12:26 | PN ---
DATE: 03/26/2018 SUBJECTIVE: The patient says that she is walking better. She has no complaints of any chest pain. No shortness of breath. No headaches. PHYSICAL EXAMINATION: VITAL SIGNS: Temperature is 97.7, pulse of 91, blood pressure 112/65 and respirations are 18. SKIN: In the lower extremities bilateral chronic skin changes. There is dark black discoloration of the skin. LABORATORY DATA: Potassium is 4.6 and creatinine is 1.5. ASSESSMENT: 1. Acute kidney injury, improved. 2. Hypokalemia, resolved. 3. Lower extremity edema, improved. 4. Diabetes type 2. 5. Pulmonary hypertension. 6. Gait dysfunction. 7. Lymphedema. 8. Hypothyroidism. 9. Morbid obesity with body mass index of 45. PLAN: The patient is currently on losartan for her hypertension. She is on metformin. Metformin has been on hold because of the elevated creatinine. The patient is on lisinopril for her diabetes. She is going to continue with sitagliptin for her diabetes. She is on Lasix. I will change her Lasix to p.o. The patient is receiving Levemir for her diabetes. She is going to continue with atorvastatin for her dyslipidemia. She is on Lovenox for DVT prophylaxis. She is on Neurontin for neuropathy. The patient is receiving allopurinol for her hyperuricemia. The patient is currently comfortable. Praneeth Holden MD
[2018-03-26 16:05] VITALS: PULSE 94; TEMP 98
[2018-03-26] MEDS: Insulin Detemir 100 units/ml Vial (Levemir) SC SCH (21:32)
[2018-03-27] MEDS: Pantoprazole 40 mg EC Tab PO SCH (05:29)
[2018-03-27] MEDS: Enoxaparin 30 mg Syringe SC SCH (05:29)
[2018-03-27] MEDS: Levothyroxine 25 MCG TAB PO SCH (05:30)
[2018-03-27] MEDS: Insulin Lispro 1 UNITS/0.01 ML SC SCH (07:00)
--- NOTE | 2018-03-27 09:27 | DS ---
HISTORY OF PRESENT ILLNESS: The patient has no complaints of any chest pain. No shortness of breath. No headaches or dizziness. She was in the Transitional Care Unit for rehab. The patient has made improvements. She is able to ambulate better. She had low extremity edema that has improved as well. She is going to be discharged home today to follow up as an outpatient. PHYSICAL EXAMINATION: VITAL SIGNS: Temperature is 98, pulse is 94, blood pressure is 138/69, respirations 18 and O2 saturation 93%. GENERAL: The patient is lying in bed, flat, comfortable. HEENT: No oral lesion. Anicteric sclerae. Moist mucosa. NECK: No JVD, adenopathy, or thyromegaly. CARDIOVASCULAR: S1 and S2, regular. No murmurs, rubs, or gallops. LUNGS: Clear to auscultation bilaterally. No wheeze, rales, or rhonchi. ABDOMEN: Bowel sounds are positive, soft, nontender and nondistended. EXTREMITIES: Lower extremity, there is a chronic bilateral skin changes, there is dark black discoloration of the skin. LABORATORY DATA: The patient's creatinine 1.5, sodium 138 and the patient's glucose is 181. ASSESSMENT: 1. Acute kidney injury, improved. 2. Hypokalemia, improved. 3. Lower extremity edema, improved. 4. Diabetes type 2. 5. Pulmonary hypertension. 6. Gait dysfunction. 7. Lymphedema. 8. Hypothyroidism. 9. Obesity with BMI 45. PLAN: The patient is on losartan for hypertension. She is on metformin for diabetes. She is on insulin for her diabetes as well. She is going to continue with sitagliptin for the diabetes. She is on Lasix twice a day 40 mg. She is on Levemir for her diabetes. She is receiving Lipitor for dyslipidemia. She is on Lovenox for her DVT prophylaxis. She is going to be discharged. I will discontinue the patient on Lovenox today. The patient is on Neurontin for neuropathy. She is on Synthroid for hypothyroidism. CONDITION: Stable. ACTIVITIES: Increase as tolerated. Follow up with Dr White in 1 to 2 weeks. Praneeth Holden MD [facility] # [id number]
[2018-03-27] MEDS: Ammonium Lactate 12% Cream (140 g) TOP SCH (10:12)
[2018-03-27 10:14] VITALS: BP 96/61
== END 2018-03-27 14:10 | disposition home health service (06) | DRG 555 ==
LOC: TRCU 21:18
PROVIDERS: ADMIT Internal Medicine Nephrology; ATTEND Internal Medicine Nephrology
PROC: F07Z9FZ Gait Training/Functional Ambulation Treatment using Assistive, Adaptive, Supportive or Protective Equipment (ICD-10-PCS; principal; 2018-03-23)
PROC: F08Z4FZ Home Management Treatment using Assistive, Adaptive, Supportive or Protective Equipment (ICD-10-PCS; 2018-03-23)
DX: R26.2 Difficulty in walking, not elsewhere classified (principal); I50.33 Acute on chronic diastolic (congestive) heart failure; Z68.42 Body mass index [BMI] 45.0-49.9, adult; N17.9 Acute kidney failure, unspecified; E66.01 Morbid (severe) obesity due to excess calories; E11.9 Type 2 diabetes mellitus without complications; E03.9 Hypothyroidism, unspecified; I87.2 Venous insufficiency (chronic) (peripheral); I27.20 Pulmonary hypertension, unspecified; J44.9 Chronic obstructive pulmonary disease, unspecified; E87.5 Hyperkalemia

== ENCOUNTER 2018-07-27 16:10 | Inpatient (IN) | payer MEDICARE, BC ==
--- NOTE | 2018-07-27 16:32 | ED PDOC ---
Arrival/HPI - General Chief Complaint: Lower Extremity Problem/Injury Time Seen by Provider: 07/27/18 16:17 - History of Present Illness Narrative History of Present Illness (Text): 07/27/18 16:31 78 yo female, hx of htn chf, lyphedema, prestns with chronic leg swelling, difficulty ambulating, mild cough. h/o of chronic lyphedema 07/27/18 17:41 Past Medical History - Infectious Disease Hx of Infectious Diseases: None - Tetanus Immunization Tetanus Immunization: Unknown - Reproductive Menopause: Yes - Cardiac Hx Congestive Heart Failure: Yes Hx Hypertension: Yes - Pulmonary Hx Chronic Obstructive Pulmonary Disease (COPD): Yes - Neurological HX Cerebrovascular Accident: Yes - HEENT Hx HEENT Disorder: Yes (Wears dentures.) - Renal Hx Renal Disorder: No - Endocrine/Metabolic Hx Diabetes Mellitus Type 1: Yes - Hematological/Oncological Hx Blood Disorders: Yes Hx Anemia: Yes - Integumentary Hx Dermatological Disorder: Yes Other/Comment: LLE Cellulitis - Musculoskeletal/Rheumatological Hx Arthritis: Yes - Gastrointestinal Hx Gastrointestinal Disorders: No - Genitourinary/Gynecological Hx Genitourinary Disorders: No Hx Reproductive Disorders: No - Psychiatric Hx Psychophysiologic Disorder: No Hx Substance Use: No Other/Comment: OBESITY - Surgical History Hx Appendectomy: Yes Hx Cholecystectomy: Yes - Anesthesia Hx Anesthesia: Yes Hx Anesthesia Reactions: No Hx Malignant Hyperthermia: No - Suicidal Assessment Feels Threatened In Home Enviroment: No Family/Social History Family/Social History: Unknown Family HX Smoking Status: Never Smoked Hx Alcohol Use: No Hx Substance Use: No Hx Substance Use Treatment: No Allergies/Home Meds Allergies/Adverse Reactions: Allergies No Known Allergies Allergy (Verified 03/22/18 21:28) Home Medications: Home Meds Medication Instructions Recorded Confirmed Levothyroxine [Synthroid] 25 mcg PO DAILY 03/13/15 03/22/18 Review of Systems - Review of Systems Constitutional: Normal Eyes: Normal ENT: Normal Respiratory: SOB Cardiovascular: Normal Gastrointestinal: Normal Genitourinary Female: Normal Musculoskeletal: Normal Skin: Normal Neurological: Normal Endocrine: Normal Hemo/Lymphatic: Normal Psychiatric: Normal Physical Exam Temperature: Afebrile Blood Pressure: Normal Pulse: Regular Respiratory Rate: Normal Appearance: Positive for: Well-Appearing, Non-Toxic, Comfortable Pain Distress: None Mental Status: Positive for: Alert and Oriented X 3 - Systems Exam Head: Present: Atraumatic, Normocephalic Pupils: Present: PERRL Extroacular Muscles: Present: EOMI Conjunctiva: Present: Normal Mouth: Present: Moist Mucous Membranes Neck: Present: Normal Range of Motion Respiratory/Chest: Present: Good Air Exchange, Wheezes (scattered), Rales (b/l bases). No: Respiratory Distress, Accessory Muscle Use Cardiovascular: Present: Regular Rate and Rhythm, Normal S1, S2. No: Murmurs Abdomen: No: Tenderness, Distention, Peritoneal Signs Back: Present: Normal Inspection Upper Extremity: Present: Normal Inspection. No: Cyanosis, Edema Lower Extremity: Present: Normal Inspection. No: Edema Neurological: Present: GCS=15, CN II-XII Intact, Speech Normal Skin: Present: Warm, Dry, Normal Color. No: Rashes Psychiatric: Present: Alert, Oriented x 3, Normal Insight, Normal Concentration Medical Decision Making ED Course and Treatment: chronic lymphedema, in nad in er. labs xr neg. 07/27/18 17:35 ekg nsr [address] t wave changes nomrla intervals 07/27/18 18:41 pt lives by herself difficulty ambulating . chronic lymphedema. accepted by dr pete. dvt study charissa. 08/01/18 12:58 - RAD Interpretation Radiology Orders: 07/27/18 16:27 CHEST PORTABLE [RAD] Stat Disposition/Present on Arrival - Present on Arrival Any Indicators Present on Arrival: No History of DVT/PE: No History of Uncontrolled Diabetes: Yes Urinary Catheter: No History of Decub. Ulcer: No History Surgical Site Infection Following: None - Disposition Have Diagnosis and Disposition been Completed?: Yes Diagnosis: Lymphedema Disposition: HOSPITALIZED Disposition Time: 10:00 Condition: GOOD
[2018-07-27 17:11] LABS: BASO # 0.03 K/mm3 (0.0-2.0); BASO % 0.3 % (0.0-3.0); EOS # 0.2 (0.0-0.7); EOS % 2.2 % (1.5-5.0); HEMOGLOBIN 11.3 g/dL (12.0-16.0); LYMPH # 2.3 (1.2-3.4); LYMPH % 26.4 % (22.0-35.0); MEAN CELL VOLUME 95.1 fl (80.0-105.0); MEAN CORPUSCULAR HEMOGLOBIN 30.5 pg (25.0-35.0); MEAN CORPUSCULAR HGB CONC 32.1 g/dl (31.0-37.0); MEAN PLATELET VOLUME 9.4 fl (7.0-11.0); MONO # 0.5 (0.1-0.6); MONO % 5.6 % (1.0-6.0); RBC 3.7 10^6/uL (3.5-6.1); RED CELL DISTRIBUTION WIDTH 14.8 % (11.5-14.5); WHITE BLOOD COUNT 8.8 10^3/uL (4.5-11.0)
--- NOTE | 2018-07-27 17:14 | RAD ---
HISTORY: cough COMPARISON: Chest x-ray performed 03/19/18 TECHNIQUE: Chest, one view. FINDINGS: Examination limited by habitus. LUNGS: Hypoinflation. Right hilar prominence. Mild basilar atelectasis. Please note that chest x-ray has limited sensitivity for the detection of pulmonary masses. PLEURA: No significant pleural effusion identified. No definite pneumothorax . CARDIOVASCULAR: Cardiomegaly. Ectatic aorta. OSSEOUS STRUCTURES: Osseous demineralization. Degenerative changes. VISUALIZED UPPER ABDOMEN: Unremarkable. OTHER FINDINGS: None. IMPRESSION: Hypoinflation. Re-identified right hilar prominence. Mild basilar atelectasis. Cardiomegaly.
[2018-07-27 17:17] LABS: INR 0.99; PARTIAL THROMBOPLASTIN TIME 26.7 Seconds (26.9-38.3)
[2018-07-27 17:19] LABS: ALT/SGPT 12 U/L (7-56); AST/SGOT 31 U/L (14-36); BLOOD UREA NITROGEN 41 mg/dL (7-21); CALCIUM 9.1 mg/dL (8.4-10.5); GFR NON-AFRICAN AMERICAN 48
[2018-07-27 17:31] LABS: B-TYPE NATRIURETIC PEPTIDE 59.8 pg/mL (0-450); TROPONIN I < 0.01 ng/mL
--- NOTE | 2018-07-27 20:17 | CARD ---
APPROVED REPORT Date of service: 07/27/2018 EKG Measurement Heart [id number] <Conclusion> Normal sinus rhythm Low voltage QRS Possible Septal infarct, age Old?
[2018-07-27] MEDS ORDERED: Dextrose 50% SYRINGE Inj (50 ml) IV PRN (20:22)
[2018-07-27] MEDS: Insulin Detemir 100 units/ml Vial (Levemir) SC SCH (22:07)
[2018-07-28 05:00] VITALS: BMI 44.2
[2018-07-28] MEDS ORDERED: Pneumococcal 23-Valent Vaccine IM ONE (05:05)
[2018-07-28] MEDS: Pantoprazole 40 mg EC Tab PO SCH (06:54)
[2018-07-28] MEDS: Levothyroxine 25 MCG TAB PO SCH (06:55)
[2018-07-28] MEDS ORDERED: Insulin Lispro 1 UNITS/0.01 ML SC SCH (07:30)
[2018-07-28] MEDS ORDERED: metOLazone 5 MG TAB PO ONE (08:21)
[2018-07-28] MEDS: Insulin Lispro (humaLOG) MEDIUM Coverage SC SCH ×4 (08:23→21:53)
[2018-07-28] MEDS: Insulin Lispro 1 UNITS/0.01 ML SC SCH ×3 (08:24→17:48)
--- NOTE | 2018-07-28 09:43 | US ---
HISTORY: Leg pain and swelling. Evaluate for DVT PHYSICIAN(S): Matthew Valles MD. TECHNIQUE: Duplex sonography and color-flow Doppler with graded compression were used to evaluate the deep venous systems of both lower extremities. The exam is limited by edema. The tibial veins are not visualized due to bandages FINDINGS: The visualized deep venous systems of both lower extremities are sonographically normal and compressible. Normal wave forms and augmentation are seen. There is no sonographic evidence for deep venous thrombosis in the visualized segments of both lower extremities. IMPRESSION: No sonographic evidence for deep venous thrombosis in the visualized segments of both lower extremities. Very limited study. The tibial veins were not evaluated
--- NOTE | 2018-07-28 11:52 | CP.PCM.HP ---
<Carlos Todd - Last Filed: 07/28/18 13:56> History of Present Illness - History of Present Illness History of Present Illness: H&P for Dr. Holden CC: worsening b/l Lower extremity edema and associated pain HPI: 78 F with a PMHx of HTN, CHF with diastolic dysfunction, COPD, CVA, anemia, hx uncontrolled dm, DM2, LLE cellulitis, OA, lyphedema, presents with chronic leg swelling, difficulty ambulating, mild cough that began approximately jonel and progressively worsened. Patient was seen and examined at bedside. Patient noted that her usual frequency of urination had decreased, from urinating every 2-3 hours at baseline. Patient has complaints of bilateral thigh pain rated at a 6/10 tender to palpation, localized. Patient denied fevers, chills, chest pains, abdominal pains, nausea, vomiting, diarrhea or dysuria. PMHx: HTN, CHF with diastolic dysfunction, COPD, CVA, anemia, hx uncontrolled dm, DM2, LLE cellulitis, OA, lyphedema PSHx: Appendectomy, cholecystectomy SHx: Denied etoh/tobacco/illicit substances FamHx: NC Meds: Synthroid, januvia, metformin, levemir, humalog, neurontin, lipitor, protonix, losartan, lasix Allergies: NKDA Present on Admission - Present on Admission Any Indicators Present on Admission: Yes History of Uncontrolled Diabetes: Yes Review of Systems - Review of Systems Review of Systems: as per HPI otherwise negative Past Patient History - Infectious Disease Hx of Infectious Diseases: None - Tetanus Immunizations Tetanus Immunization: Unknown - Past Social History Smoking Status: Never Smoked - CARDIAC Hx Congestive Heart Failure: Yes Hx Hypertension: Yes - PULMONARY Hx Chronic Obstructive Pulmonary Disease (COPD): Yes - NEUROLOGICAL HX Cerebrovascular Accident: Yes - HEENT Hx HEENT Problems: Yes (Wears dentures.) - RENAL Hx Chronic Kidney Disease: No - ENDOCRINE/METABOLIC Hx Diabetes Mellitus Type 1: Yes - HEMATOLOGICAL/ONCOLOGICAL Hx Blood Disorders: Yes Hx Anemia: Yes - INTEGUMENTARY Hx Dermatological Problems: Yes Other/Comment: LLE Cellulitis - MUSCULOSKELETAL/RHEUMATOLOGICAL Hx Falls: Yes - GASTROINTESTINAL Hx Gastrointestinal Disorders: No - GENITOURINARY/GYNECOLOGICAL Hx Genitourinary Disorders: No Hx Reproductive Disorders: No - PSYCHIATRIC Hx Substance Use: No - SURGICAL HISTORY Hx Appendectomy: Yes Hx Cholecystectomy: Yes - ANESTHESIA Hx Anesthesia: Yes Hx Anesthesia Reactions: No Hx Malignant Hyperthermia: No Meds Allergies/Adverse Reactions: Allergies Allergy/AdvReac Type Severity Reaction Status Date / Time No Known Allergies Allergy Verified 03/22/18 21:28 Physical Exam - Constitutional Appears: No Acute Distress Additional comments: morbidly obese - Head Exam Head Exam: ATRAUMATIC, NORMAL INSPECTION, NORMOCEPHALIC - Eye Exam Eye Exam: EOMI, Normal appearance, PERRL Pupil Exam: NORMAL ACCOMODATION, PERRL - ENT Exam ENT Exam: Mucous Membranes Moist, Normal Exam - Respiratory Exam Respiratory Exam: Rales, NORMAL BREATHING PATTERN. absent: Wheezes - Cardiovascular Exam Cardiovascular Exam: REGULAR RHYTHM, +S1, +S2 - GI/Abdominal Exam GI & Abdominal Exam: Distended, Normal Bowel Sounds, Soft. absent: Tenderness - Extremities Exam Extremities exam: Positive for: pedal edema, tenderness, pedal pulses present - Neurological Exam Neurological exam: Alert, CN II-XII Intact, Oriented x3, Reflexes Normal - Psychiatric Exam Psychiatric exam: Anxious Results - Vital Signs Recent Vital Signs: Last Vital Signs Temp 98.1 F 07/28/18 06:00 Pulse 80 07/28/18 06:00 Resp 20 07/28/18 06:00 BP 160/79 H 07/28/18 10:16 Pulse Ox 93 L 07/28/18 06:00 - Labs Result Diagrams: 07/27/18 16:36 07/27/18 16:36 Labs: Laboratory Results - last 24 hr 07/27/18 07/27/18 07/27/18 16:36 16:36 16:36 WBC 8.8 RBC 3.70 Hgb 11.3 L Hct 35.2 L MCV 95.1 MCH 30.5 MCHC 32.1 RDW 14.8 H Plt Count 293 MPV 9.4 Neut % (Auto) 65.5 Lymph % (Auto) 26.4 [place] % (Auto) 5.6 Eos % (Auto) 2.2 Baso % (Auto) 0.3 Lymph # (Auto) 2.3 [place] # (Auto) 0.5 Eos # (Auto) 0.2 Baso # (Auto) 0.03 Absolute Neuts (auto) 5.74 PT 11.0 INR 0.99 APTT 26.7 L Sodium 142 Potassium 4.6 Chloride 100 Carbon Dioxide 32 Anion Gap 14 BUN 41 H Creatinine 1.1 Est GFR ( Amer) 58 Est GFR (Non-Af Amer) 48 POC Glucose (mg/dL) Random Glucose 139 H Calcium 9.1 Magnesium 2.2 Total Bilirubin 0.4 AST 31 ALT 12 Alkaline Phosphatase 80 Lactate Dehydrogenase 590 Total Creatine Kinase 67 Troponin I < 0.01 NT-Pro-B Natriuret Pep 59.8 Total Protein 8.0 Albumin 4.0 Globulin 4.0 Albumin/Globulin Ratio 1.0 L 07/27/18 07/28/18 07/28/18 21:32 02:10 06:32 WBC RBC Hgb Hct MCV MCH MCHC RDW Plt Count MPV Neut % (Auto) Lymph % (Auto) [place] % (Auto) Eos % (Auto) Baso % (Auto) Lymph # (Auto) [place] # (Auto) Eos # (Auto) Baso # (Auto) Absolute Neuts (auto) PT INR APTT Sodium Potassium Chloride Carbon Dioxide Anion Gap BUN Creatinine Est GFR ( Amer) Est GFR (Non-Af Amer) POC Glucose (mg/dL) 84 140 H 160 H Random Glucose Calcium Magnesium Total Bilirubin AST ALT Alkaline Phosphatase Lactate Dehydrogenase Total Creatine Kinase Troponin I NT-Pro-B Natriuret Pep Total Protein Albumin Globulin Albumin/Globulin Ratio 07/28/18 11:24 WBC RBC Hgb Hct MCV MCH MCHC RDW Plt Count MPV Neut % (Auto) Lymph % (Auto) [place] % (Auto) Eos % (Auto) Baso % (Auto) Lymph # (Auto) [place] # (Auto) Eos # (Auto) Baso # (Auto) Absolute Neuts (auto) PT INR APTT Sodium Potassium Chloride Carbon Dioxide Anion Gap BUN Creatinine Est GFR ( Amer) Est GFR (Non-Af Amer) POC Glucose (mg/dL) 149 H Random Glucose Calcium Magnesium Total Bilirubin AST ALT Alkaline Phosphatase Lactate Dehydrogenase Total Creatine Kinase Troponin I NT-Pro-B Natriuret Pep Total Protein Albumin Globulin Albumin/Globulin Ratio Assessment & Plan - Assessment and Plan (Free Text) Assessment: B/L stasis dermatitis B/L acute exacerbation of chronic lymphedema CHF 2/2 diastolic dysfunction IDDM COPD Pulmonary HTN Hypothyroidism Dyslipidemia Morbid obesity DVT ppx GI ppx Plan: patient is comfortable, we will continue to diurese the patient with lasix and metolazone for acute exacerbation of CHF with worsening BlL lower extremity edema. Conitnue to monitor I&Os, and monitor electrolytes. CXR reviewed, fu CXR. Dr. Avendano podiatry consulted for b/l lower extremity stasis dermatitis, continue lac-hydrin BID. Patient sees Dr. Avendano every two weeks for b/l lower extremity compression dressings. Patient B/l lower extremities dressing in place. Patient is on januvia and insulin regimen for IDDM, 30 u HS levemir and 8 u TID AC humalog. Continue ISS and monitor. Patient to continue gabapentin for DM nepropathy. Continue synthroid for hypothyroidism. Continue norvasc and cozaar for HTN. Duonebs for COPD, on NC. Continue atorvastatin for dyslipidemia. <Praneeth Holden S - Last Filed: 07/28/18 21:23> Results - Vital Signs Recent Vital Signs: Last Vital Signs Temp 97.6 F 07/28/18 14:00 Pulse 73 07/28/18 14:00 Resp 20 07/28/18 14:00 BP 159/81 H 07/28/18 20:13 Pulse Ox 94 L 07/28/18 14:00 - Labs Result Diagrams: 07/27/18 16:36 07/27/18 16:36 Labs: Laboratory Results - last 24 hr 07/27/18 07/28/18 07/28/18 21:32 02:10 06:32 POC Glucose (mg/dL) 84 140 H 160 H 07/28/18 07/28/18 11:24 16:09 POC Glucose (mg/dL) 149 H 132 H Assessment & Plan - Assessment and Plan (Free Text) Assessment: Pt seen and examined by me. I have reviewed the note of the medical record librarian and I agree with it. I have discussed the assessment and plan with the resident. I have reviewed the medications and the last labs.
--- NOTE | 2018-07-28 13:15 | CP.PCM.CON ---
<Spring Benitez - Last Filed: 07/28/18 13:12> History of Present Illness - History of Present Illness History of Present Illness: Podiatry Consult Note: Dr. Kinney/Juan Alberto 78F patient, with PMHx of COPD, DM, pulmonary HTN, hypothyroidism, obesity, seen and evaluated for chronic lower extremity lymphedema. Patient states that she presented to the hospital because she felt she had too much fluid in her system. Patient states that she sees Dr. Avendano in the wound care center every two weeks for b/l lower extremity compression dressings. She denies any other pedal complaints at this time. Denies N/F/V/CP and admits to shortness of breath PMHx: COPD, DM, pulmonary HTN, hypothyroidism, obesity PSHx: appendectomy, cholecystectomy ALL: NKDA Review of Systems - Review of Systems All systems: reviewed and no additional remarkable complaints except Review of Systems: As per HPI Past Patient History - Infectious Disease Hx of Infectious Diseases: None - Tetanus Immunizations Tetanus Immunization: Unknown - Past Social History Smoking Status: Never Smoked - CARDIAC Hx Congestive Heart Failure: Yes Hx Hypertension: Yes - PULMONARY Hx Chronic Obstructive Pulmonary Disease (COPD): Yes - NEUROLOGICAL HX Cerebrovascular Accident: Yes - HEENT Hx HEENT Problems: Yes (Wears dentures.) - RENAL Hx Chronic Kidney Disease: No - ENDOCRINE/METABOLIC Hx Diabetes Mellitus Type 1: Yes - HEMATOLOGICAL/ONCOLOGICAL Hx Blood Disorders: Yes Hx Anemia: Yes - INTEGUMENTARY Hx Dermatological Problems: Yes Other/Comment: LLE Cellulitis - MUSCULOSKELETAL/RHEUMATOLOGICAL Hx Falls: Yes - GASTROINTESTINAL Hx Gastrointestinal Disorders: No - GENITOURINARY/GYNECOLOGICAL Hx Genitourinary Disorders: No Hx Reproductive Disorders: No - PSYCHIATRIC Hx Substance Use: No - SURGICAL HISTORY Hx Appendectomy: Yes Hx Cholecystectomy: Yes - ANESTHESIA Hx Anesthesia: Yes Hx Anesthesia Reactions: No Hx Malignant Hyperthermia: No Meds Allergies/Adverse Reactions: Allergies Allergy/AdvReac Type Severity Reaction Status Date / Time No Known Allergies Allergy Verified 03/22/18 21:28 - Medications Medications: Current Medications Acetaminophen (Tylenol 325mg Tab) 650 mg PO Q4H PRN PRN Reason: Pain, Mild (1-3) Amlodipine Besylate (Norvasc) 2.5 mg PO DAILY [facility] Last Admin: 07/28/18 10:15 Dose: 2.5 mg Atorvastatin Calcium (Lipitor) 10 mg PO [facility] Last Admin: 07/27/18 23:00 Dose: 10 mg Dextrose (Dextrose 50% Inj) 0 ml IV STAT PRN; Protocol PRN Reason: Hypoglycemia Protocol Furosemide (Lasix) 40 mg IVP Q12 [facility] Last Admin: 07/28/18 10:16 Dose: 40 mg Gabapentin (Neurontin) 100 mg PO DAILY [facility]; Protocol Last Admin: 07/28/18 10:15 Dose: 100 mg Dextrose (Dextrose 5% In Water 1000 Ml) 1,000 mls @ 0 mls/hr IV .Q0M PRN; Pr otocol PRN Reason: Hypoglycemia Protocol Insulin Detemir (Levemir) 30 unit SC [facility] Last Admin: 07/27/18 22:07 Dose: Not Given Insulin Human Lispro (Humalog Med) 0 units SC [facility]; Protocol Last Admin: 07/28/18 11:50 Dose: Not Given Insulin Human Lispro (Humalog) 8 units SC [facility] Last Admin: 07/28/18 12:14 Dose: 8 unit Levothyroxine Sodium (Synthroid) 25 mcg PO 0600 [facility] Last Admin: 07/28/18 06:55 Dose: 25 mcg Losartan Potassium (Cozaar) 100 mg PO DAILY [facility] Last Admin: 07/28/18 10:15 Dose: 100 mg Pantoprazole Sodium (Protonix Ec Tab) 40 mg PO 0600 [facility] Last Admin: 07/28/18 06:54 Dose: 40 mg Sitagliptin Phosphate (Januvia) 50 mg PO DAILY [facility] Last Admin: 07/28/18 10:16 Dose: 50 mg Physical Exam - Constitutional Appears: Well, Non-toxic, No Acute Distress - Head Exam Head Exam: ATRAUMATIC, NORMOCEPHALIC - Extremities Exam Additional comments: B/L lower extremity focused exam: Vasc: DP/PT faintly palpable secondary to edema, CFT < 3 seconds to all digits, TG warm to warm, +2 pitting edema to b/l lower extremities Ortho: Tenderness to palpation of knee and thighs. No tenderness to palpation of b/l legs. NO pain upon calf compression bilaterally. Neuro: Gross sensation intact, protective sensation diminished Derm: B/L lower extremity lichenification with significant xerosis bilaterally. No open lesions, no drainage, no erythema, no clinical signs of infection. - Neurological Exam Neurological exam: Alert, Oriented x3 - Psychiatric Exam Psychiatric exam: Normal Affect, Normal Mood Results - Vital Signs Recent Vital Signs: Last Vital Signs Temp 98.1 F 07/28/18 06:00 Pulse 80 07/28/18 06:00 Resp 20 07/28/18 06:00 BP 160/79 H 07/28/18 10:16 Pulse Ox 93 L 07/28/18 06:00 - Labs Result Diagrams: 07/27/18 16:36 07/27/18 16:36 Labs: Laboratory Results - last 24 hr 07/27/18 07/27/18 07/27/18 16:36 16:36 16:36 WBC 8.8 RBC 3.70 Hgb 11.3 L Hct 35.2 L MCV 95.1 MCH 30.5 MCHC 32.1 RDW 14.8 H Plt Count 293 MPV 9.4 Neut % (Auto) 65.5 Lymph % (Auto) 26.4 [place] % (Auto) 5.6 Eos % (Auto) 2.2 Baso % (Auto) 0.3 Lymph # (Auto) 2.3 [place] # (Auto) 0.5 Eos # (Auto) 0.2 Baso # (Auto) 0.03 Absolute Neuts (auto) 5.74 PT 11.0 INR 0.99 APTT 26.7 L Sodium 142 Potassium 4.6 Chloride 100 Carbon Dioxide 32 Anion Gap 14 BUN 41 H Creatinine 1.1 Est GFR ( Amer) 58 Est GFR (Non-Af Amer) 48 POC Glucose (mg/dL) Random Glucose 139 H Calcium 9.1 Magnesium 2.2 Total Bilirubin 0.4 AST 31 ALT 12 Alkaline Phosphatase 80 Lactate Dehydrogenase 590 Total Creatine Kinase 67 Troponin I < 0.01 NT-Pro-B Natriuret Pep 59.8 Total Protein 8.0 Albumin 4.0 Globulin 4.0 Albumin/Globulin Ratio 1.0 L 07/27/18 07/28/18 07/28/18 21:32 02:10 06:32 WBC RBC Hgb Hct MCV MCH MCHC RDW Plt Count MPV Neut % (Auto) Lymph % (Auto) [place] % (Auto) Eos % (Auto) Baso % (Auto) Lymph # (Auto) [place] # (Auto) Eos # (Auto) Baso # (Auto) Absolute Neuts (auto) PT INR APTT Sodium Potassium Chloride Carbon Dioxide Anion Gap BUN Creatinine Est GFR ( Amer) Est GFR (Non-Af Amer) POC Glucose (mg/dL) 84 140 H 160 H Random Glucose Calcium Magnesium Total Bilirubin AST ALT Alkaline Phosphatase Lactate Dehydrogenase Total Creatine Kinase Troponin I NT-Pro-B Natriuret Pep Total Protein Albumin Globulin Albumin/Globulin Ratio 07/28/18 11:24 WBC RBC Hgb Hct MCV MCH MCHC RDW Plt Count MPV Neut % (Auto) Lymph % (Auto) [place] % (Auto) Eos % (Auto) Baso % (Auto) Lymph # (Auto) [place] # (Auto) Eos # (Auto) Baso # (Auto) Absolute Neuts (auto) PT INR APTT Sodium Potassium Chloride Carbon Dioxide Anion Gap BUN Creatinine Est GFR ( Amer) Est GFR (Non-Af Amer) POC Glucose (mg/dL) 149 H Random Glucose Calcium Magnesium Total Bilirubin AST ALT Alkaline Phosphatase Lactate Dehydrogenase Total Creatine Kinase Troponin I NT-Pro-B Natriuret Pep Total Protein Albumin Globulin Albumin/Globulin Ratio Assessment & Plan - Assessment and Plan (Free Text) Assessment: 78F patient, with PMHx of COPD, DM, pulmonary HTN, obesity, seen and evaluated for chronic lower extremity lymphedema. Plan: Patient seen and evaluated with Dr Kinney Discussed patient plan Chart, labs, vitals reviewed; afebrile, VSS Lac-Hydrin ordered and to be applied to bilateral lower extremities BID Patient advised to keep lower extremities elevated while in bed Wounds dressed with Xeroform, DSD, GISELE for compression Unna Boots ordered for dressing change tomorrow- BILATERALLY No surgical intervention at this time, patient stable from podiatry standpoint Will continue to follow patient while in house Thank you for the consult and for allowing us to participate in the care of this patient - Date & Time Date: 07/28/18 Time: 13:18 <Joshua Kinney - Last Filed: 07/28/18 18:21> Meds - Medications Medications: Current Medications Acetaminophen (Tylenol 325mg Tab) 650 mg PO Q4H PRN PRN Reason: Pain, Mild (1-3) Albuterol/Ipratropium (Duoneb 3 Mg/0.5 Mg (3 Ml) Ud) 3 ml IH [id number] [facility] Albuterol/Ipratropium (Duoneb 3 Mg/0.5 Mg (3 Ml) Ud) 3 ml IH Q2H PRN PRN Reason: Shortness of Breath Amlodipine Besylate (Norvasc) 2.5 mg PO DAILY [facility] Last Admin: 07/28/18 10:15 Dose: 2.5 mg Atorvastatin Calcium (Lipitor) 10 mg PO HS [facility] Last Admin: 07/27/18 23:00 Dose: 10 mg Dextrose (Dextrose 50% Inj) 0 ml IV STAT PRN; Protocol PRN Reason: Hypoglycemia Protocol Enoxaparin Sodium (Lovenox) 40 mg SC DAILY [facility]; Protocol Furosemide (Lasix) 40 mg IVP Q12 [facility] Last Admin: 07/28/18 10:16 Dose: 40 mg Gabapentin (Neurontin) 100 mg PO DAILY [facility]; Protocol Last Admin: 07/28/18 10:15 Dose: 100 mg Dextrose (Dextrose 5% In Water 1000 Ml) 1,000 mls @ 0 mls/hr IV .Q0M PRN; Protocol PRN Reason: Hypoglycemia Protocol Insulin Detemir (Levemir) 30 unit SC HS [facility] Last Admin: 07/27/18 22:07 Dose: Not Given Insulin Human Lispro (Humalog Med) 0 units SC [facility]; Protocol Last Admin: 07/28/18 17:47 Dose: Not Given Insulin Human Lispro (Humalog) 8 units SC AC [facility] Last Admin: 07/28/18 17:48 Dose: Not Given Lactic Acid (Lac-Hydrin 12% Cream (140 G)) 0 ea TOP DAILY [facility] Levothyroxine Sodium (Synthroid) 25 mcg PO 0600 [facility] Last Admin: 07/28/18 06:55 Dose: 25 mcg Losartan Potassium (Cozaar) 100 mg PO DAILY [facility] Last Admin: 07/28/18 10:15 Dose: 100 mg Pantoprazole Sodium (Protonix Ec Tab) 40 mg PO 0600 [facility] Last Admin: 07/28/18 06:54 Dose: 40 mg Sitagliptin Phosphate (Januvia) 50 mg PO DAILY [facility] Last Admin: 07/28/18 10:16 Dose: 50 mg Results - Vital Signs Recent Vital Signs: Last Vital Signs Temp 97.6 F 07/28/18 14:00 Pulse 73 07/28/18 14:00 Resp 20 07/28/18 14:00 BP 131/77 07/28/18 14:00 Pulse Ox 94 L 07/28/18 14:00 - Labs Result Diagrams: 07/27/18 16:36 07/27/18 16:36 Labs: Laboratory Results - last 24 hr 07/27/18 07/28/18 07/28/18 21:32 02:10 06:32 POC Glucose (mg/dL) 84 140 H 160 H 07/28/18 07/28/18 11:24 16:09 POC Glucose (mg/dL) 149 H 132 H Attending/Attestation - Attestation I have personally seen and examined this patient.: Yes I have fully participated in the care of the patient.: Yes I have reviewed all pertinent clinical information: Yes
[2018-07-28] MEDS ORDERED: Unna Boot TOP ONE (13:17)
[2018-07-28] MEDS ORDERED: Albuterol-Ipratrop 3 mg / 0.5 (3 ml) UD IH PRN (14:08)
[2018-07-28] MEDS: Albuterol-Ipratrop 3 mg / 0.5 (3 ml) UD IH SCH (20:50)
[2018-07-28] MEDS: Insulin Detemir 100 units/ml Vial (Levemir) SC SCH (21:48)
[2018-07-29] MEDS: Albuterol-Ipratrop 3 mg / 0.5 (3 ml) UD IH SCH ×4 (02:40→20:45)
[2018-07-29] MEDS: Pantoprazole 40 mg EC Tab PO SCH (05:52)
[2018-07-29] MEDS: Levothyroxine 25 MCG TAB PO SCH (05:52)
--- NOTE | 2018-07-29 06:03 | HP ---
DATE OF EXAM: 07/28/2018 HOSPITAL COURSE: The patient was seen and examined, I do agree with the note of the medical communication specialist. I was involved in the plan of care. The patient initially came to the hospital because of lower extremity edema. She has difficulty walking. The patient says that she was getting short of breath when she was lying in bed. She also developing cough. She says she is having more difficulty in ambulating. She lives alone. She was admitted to the hospital because of lower extremity edema, CHF secondary to diastolic dysfunction. She has been placed on IV Lasix and metolazone to help with her edema. She had diabetes type 2 with Levemir that is going to continue with Humalog for her diabetes. She is on gabapentin for neuropathy. She is on Synthroid for hypothyroidism. She is going to continue with Norvasc and Cozaar for hypertension. She is going to be on DuoNeb treatments for her COPD. She is on Lipitor for dyslipidemia. Will monitor her labs. I did review her medications. She is going to need physical therapy evaluation. rPaneeth Holden MD
[2018-07-29] MEDS: Insulin Lispro (humaLOG) MEDIUM Coverage SC SCH ×4 (08:10→22:43)
[2018-07-29] MEDS: Insulin Lispro 1 UNITS/0.01 ML SC SCH ×3 (08:11→17:19)
[2018-07-29] MEDS: Ammonium Lactate 12% Cream (140 g) TOP SCH (09:19)
[2018-07-29] MEDS: POLYETHYLENE GLYCOL 3350 17 GM/Dose PACKET PO SCH ×2 (09:20→17:19)
[2018-07-29] MEDS: Enoxaparin 40 mg Syringe SC SCH (09:20)
--- NOTE | 2018-07-29 11:52 | CP.PCM.PN ---
Subjective - Date & Time of Evaluation Date of Evaluation: 07/29/18 Time of Evaluation: 11:50 - Subjective Subjective: Podiatry Progress note for Dr. Kinney/Juan Alberto 78 female patient seen and evaluated for chronic lower extremity lymphedema. Patient denies any acute overnight events. Patient denies any other pedal complaints at this time. Denies N/F/V/CP and admits to shortness of breath Objective - Vital Signs/Intake and Output Vital Signs (last 24 hours): Temp Pulse Resp BP Pulse Ox 98 F 83 18 140/72 95 07/29/18 06:00 07/29/18 06:00 07/29/18 06:00 07/29/18 09:20 07/29/18 06:00 Intake and Output: 07/29/18 07/29/18 06:59 18:59 Intake Total 620 Balance 620 - Medications Medications: Current Medications Acetaminophen (Tylenol 325mg Tab) 650 mg PO Q4H PRN PRN Reason: Pain, Mild (1-3) Albuterol/Ipratropium (Duoneb 3 Mg/0.5 Mg (3 Ml) Ud) 3 ml IH [id number] [facility] Last Admin: 07/29/18 08:06 Dose: 3 ml Albuterol/Ipratropium (Duoneb 3 Mg/0.5 Mg (3 Ml) Ud) 3 ml IH Q2H PRN PRN Reason: Shortness of Breath Amlodipine Besylate (Norvasc) 2.5 mg PO DAILY [facility] Last Admin: 07/29/18 09:20 Dose: 2.5 mg Atorvastatin Calcium (Lipitor) 10 mg PO HS [facility] Last Admin: 07/28/18 21:47 Dose: 10 mg Dextrose (Dextrose 50% Inj) 0 ml IV STAT PRN; Protocol PRN Reason: Hypoglycemia Protocol Enoxaparin Sodium (Lovenox) 40 mg SC DAILY [facility]; Protocol Last Admin: 07/29/18 09:20 Dose: 40 mg Furosemide (Lasix) 40 mg IVP Q12 [facility] Last Admin: 07/29/18 09:19 Dose: 40 mg Gabapentin (Neurontin) 100 mg PO DAILY [facility]; Protocol Last Admin: 07/29/18 09:20 Dose: 100 mg Dextrose (Dextrose 5% In Water 1000 Ml) 1,000 mls @ 0 mls/hr IV .Q0M PRN; Protocol PRN Reason: Hypoglycemia Protocol Insulin Detemir (Levemir) 30 unit SC HS [facility] Last Admin: 07/28/18 21:48 Dose: 30 u Insulin Human Lispro (Humalog Med) 0 units SC ACHS [facility]; Protocol Last Admin: 07/29/18 08:10 Dose: 1 units Insulin Human Lispro (Humalog) 8 units SC AC [facility] Last Admin: 07/29/18 08:11 Dose: 8 unit Lactic Acid (Lac-Hydrin 12% Cream (140 G)) 0 ea TOP DAILY [facility] Last Admin: 07/29/18 09:19 Dose: 1 applic Levothyroxine Sodium (Synthroid) 25 mcg PO 0600 [facility] Last Admin: 07/29/18 05:52 Dose: 25 mcg Losartan Potassium (Cozaar) 100 mg PO DAILY [facility] Last Admin: 07/29/18 09:19 Dose: 100 mg Pantoprazole Sodium (Protonix Ec Tab) 40 mg PO 0600 [facility] Last Admin: 07/29/18 05:52 Dose: 40 mg Polyethylene Glycol (Miralax) 17 gm PO BID [facility] Last Admin: 07/29/18 09:20 Dose: 17 gm Sitagliptin Phosphate (Januvia) 50 mg PO DAILY [facility] Last Admin: 07/29/18 09:19 Dose: 50 mg - Labs Labs: 07/27/18 16:36 07/27/18 16:36 PT 11.0 SECONDS (9.4-12.5) 07/27/18 16:36 INR 0.99 07/27/18 16:36 APTT 26.7 Seconds (26.9-38.3) L 07/27/18 16:36 - Constitutional Appears: Well, Non-toxic, No Acute Distress - Head Exam Head Exam: ATRAUMATIC, NORMOCEPHALIC - Extremities Exam Additional comments: B/L lower extremity focused exam: Vasc: DP/PT faintly palpable secondary to edema, CFT < 3 seconds to all digits, TG warm to warm, +2 pitting edema to b/l lower extremities Ortho: Tenderness to palpation of knee and thighs. No tenderness to palpation of b/l legs. NO pain upon calf compression bilaterally. Neuro: Gross sensation intact, protective sensation diminished Derm: B/L lower extremity lichenification with significant xerosis bilaterally. No open lesions, no drainage, no erythema, no clinical signs of infection. - Neurological Exam Neurological Exam: Alert, Awake, Oriented x3 - Psychiatric Exam Psychiatric exam: Normal Affect, Normal Mood Assessment and Plan - Assessment and Plan (Free Text) Assessment: 78F patient, with PMHx of COPD, DM, pulmonary HTN, obesity, seen and evaluated for chronic lower extremity lymphedema. Plan: Patient seen and evaluated with Dr Avendano Discussed patient plan Chart, labs, vitals reviewed; afebrile, VSS Lac-Hydrin applied to bilateral lower extremities BID Patient advised to keep lower extremities elevated while in bed B/L kept open to air at this time Unna Boots will be applied prior to discharge No surgical intervention at this time, patient stable from podiatry standpoint Will continue to follow patient while in house
--- NOTE | 2018-07-29 14:06 | CP.PCM.PN ---
<Carlos Todd - Last Filed: 07/29/18 14:02> Subjective - Date & Time of Evaluation Date of Evaluation: 07/29/18 Time of Evaluation: 09:00 - Subjective Subjective: Progress Note for Dr. Holden Patient was seen and examined at bedside Patient states that her bilateral lower extremity swelling has improved, as well as her pain in her lower extremities. Patient is sitting comfortably. She denied fever, chills, shortness of breath, chest pains, abdominal pains, nausea, vomiting, diarrhea, constipation. Objective - Vital Signs/Intake and Output Vital Signs (last 24 hours): Temp Pulse Resp BP Pulse Ox 98 F 83 18 140/72 95 07/29/18 06:00 07/29/18 06:00 07/29/18 06:00 07/29/18 09:20 07/29/18 06:00 Intake and Output: 07/29/18 07/29/18 06:59 18:59 Intake Total 620 Balance 620 - Medications Medications: Current Medications Acetaminophen (Tylenol 325mg Tab) 650 mg PO Q4H PRN PRN Reason: Pain, Mild (1-3) Albuterol/Ipratropium (Duoneb 3 Mg/0.5 Mg (3 Ml) Ud) 3 ml IH [id number] [facility] Last Admin: 07/29/18 08:06 Dose: 3 ml Albuterol/Ipratropium (Duoneb 3 Mg/0.5 Mg (3 Ml) Ud) 3 ml IH Q2H PRN PRN Reason: Shortness of Breath Amlodipine Besylate (Norvasc) 2.5 mg PO DAILY [facility] Last Admin: 07/29/18 09:20 Dose: 2.5 mg Atorvastatin Calcium (Lipitor) 10 mg PO HS [facility] Last Admin: 07/28/18 21:47 Dose: 10 mg Dextrose (Dextrose 50% Inj) 0 ml IV STAT PRN; Protocol PRN Reason: Hypoglycemia Protocol Enoxaparin Sodium (Lovenox) 40 mg SC DAILY [facility]; Protocol Last Admin: 07/29/18 09:20 Dose: 40 mg Furosemide (Lasix) 40 mg IVP Q12 [facility] Last Admin: 07/29/18 09:19 Dose: 40 mg Gabapentin (Neurontin) 100 mg PO DAILY [facility]; Protocol Last Admin: 07/29/18 09:20 Dose: 100 mg Dextrose (Dextrose 5% In Water 1000 Ml) 1,000 mls @ 0 mls/hr IV .Q0M PRN; Prot ocol PRN Reason: Hypoglycemia Protocol Insulin Detemir (Levemir) 30 unit SC HS [facility] Last Admin: 07/28/18 21:48 Dose: 30 u Insulin Human Lispro (Humalog Med) 0 units SC ACHS [facility]; Protocol Last Admin: 07/29/18 11:53 Dose: 3 units Insulin Human Lispro (Humalog) 8 units SC AC [facility] Last Admin: 07/29/18 11:54 Dose: 8 unit Lactic Acid (Lac-Hydrin 12% Cream (140 G)) 0 ea TOP DAILY [facility] Last Admin: 07/29/18 09:19 Dose: 1 applic Levothyroxine Sodium (Synthroid) 25 mcg PO 0600 [facility] Last Admin: 07/29/18 05:52 Dose: 25 mcg Losartan Potassium (Cozaar) 100 mg PO DAILY [facility] Last Admin: 07/29/18 09:19 Dose: 100 mg Pantoprazole Sodium (Protonix Ec Tab) 40 mg PO 0600 [facility] Last Admin: 07/29/18 05:52 Dose: 40 mg Polyethylene Glycol (Miralax) 17 gm PO BID [facility] Last Admin: 07/29/18 09:20 Dose: 17 gm Sitagliptin Phosphate (Januvia) 50 mg PO DAILY [facility] Last Admin: 07/29/18 09:19 Dose: 50 mg - Labs Labs: 07/27/18 16:36 07/27/18 16:36 PT 11.0 SECONDS (9.4-12.5) 07/27/18 16:36 INR 0.99 07/27/18 16:36 APTT 26.7 Seconds (26.9-38.3) L 07/27/18 16:36 - Constitutional Appears: Well - Head Exam Head Exam: ATRAUMATIC, NORMAL INSPECTION, NORMOCEPHALIC - Eye Exam Eye Exam: EOMI, Normal appearance, PERRL - ENT Exam ENT Exam: Mucous Membranes Moist, Normal Exam - Respiratory Exam Respiratory Exam: Clear to Ausculation Bilateral, NORMAL BREATHING PATTERN - Cardiovascular Exam Cardiovascular Exam: REGULAR RHYTHM, +S1, +S2. absent: Murmur - GI/Abdominal Exam GI & Abdominal Exam: Soft, Normal Bowel Sounds. absent: Tenderness - Neurological Exam Neurological Exam: Alert, Awake, CN II-XII Intact, Normal Gait, Oriented x3 - Psychiatric Exam Psychiatric exam: Normal Affect, Normal Mood - Skin Skin Exam: Dry, Intact, Normal Color, Warm Assessment and Plan - Assessment and Plan (Free Text) Assessment: B/L stasis dermatitis B/L acute exacerbation of chronic lymphedema CHF 2/2 diastolic dysfunction IDDM COPD Pulmonary HTN Hypothyroidism Dyslipidemia Morbid obesity DVT ppx GI ppx Plan: patient is comfortable, we will continue to diurese the patient with lasix for acute exacerbation of CHF with worsening BlL lower extremity edema. Conitnue to monitor I&Os, and monitor electrolytes. CXR reviewed. Dr. Avendano podiatry consulted for b/l lower extremity stasis dermatitis, continue lac-hydrin BID. Patient sees Dr. Avendano every two weeks for b/l lower extremity compression dressings. Patient B/l lower extremities dressing in place. Patient is on januvia and insulin regimen for IDDM, 30 u HS levemir and 8 u TID AC humalog. Continue ISS and monitor. Patient to continue gabapentin for DM nepropathy. Continue synthroid for hypothyroidism. Continue norvasc and cozaar for HTN. Duonebs for COPD, on NC. Continue atorvastatin for dyslipidemia. <Praneeth Holden S - Last Filed: 07/29/18 21:44> Objective - Vital Signs/Intake and Output Vital Signs (last 24 hours): Temp Pulse Resp BP Pulse Ox 97.7 F 76 18 166/82 H 94 L 07/29/18 21:01 07/29/18 21:01 07/29/18 21:01 07/29/18 21:01 07/29/18 21:01 Intake and Output: 07/29/18 07/30/18 18:59 06:59 Intake Total 620 Balance 620 - Medications Medications: Current Medications Acetaminophen (Tylenol 325mg Tab) 650 mg PO Q4H PRN PRN Reason: Pain, Mild (1-3) Albuterol/Ipratropium (Duoneb 3 Mg/0.5 Mg (3 Ml) Ud) 3 ml IH [id number] [facility] Last Admin: 07/29/18 20:45 Dose: 3 ml Albuterol/Ipratropium (Duoneb 3 Mg/0.5 Mg (3 Ml) Ud) 3 ml IH Q2H PRN PRN Reason: Shortness of Breath Amlodipine Besylate (Norvasc) 2.5 mg PO DAILY [facility] Last Admin: 07/29/18 09:20 Dose: 2.5 mg Atorvastatin Calcium (Lipitor) 10 mg PO HS [facility] Last Admin: 07/28/18 21:47 Dose: 10 mg Dextrose (Dextrose 50% Inj) 0 ml IV STAT PRN; Protocol PRN Reason: Hypoglycemia Protocol Enoxaparin Sodium (Lovenox) 40 mg SC DAILY [facility]; Protocol Last Admin: 07/29/18 09:20 Dose: 40 mg Furosemide (Lasix) 40 mg IVP Q12 [facility] Last Admin: 07/29/18 09:19 Dose: 40 mg Gabapentin (Neurontin) 100 mg PO DAILY [facility]; Protocol Last Admin: 07/29/18 09:20 Dose: 100 mg Dextrose (Dextrose 5% In Water 1000 Ml) 1,000 mls @ 0 mls/hr IV .Q0M PRN; Protocol PRN Reason: Hypoglycemia Protocol Insulin Detemir (Levemir) 30 unit SC HS [facility] Last Admin: 07/28/18 21:48 Dose: 30 u Insulin Human Lispro (Humalog Med) 0 units SC ACHS [facility]; Protocol Last Admin: 07/29/18 17:18 Dose: 1 units Insulin Human Lispro (Humalog) 8 units SC AC [facility] Last Admin: 07/29/18 17:19 Dose: 8 unit Lactic Acid (Lac-Hydrin 12% Cream (140 G)) 0 ea TOP DAILY [facility] Last Admin: 07/29/18 09:19 Dose: 1 applic Levothyroxine Sodium (Synthroid) 25 mcg PO 0600 [facility] Last Admin: 07/29/18 05:52 Dose: 25 mcg Losartan Potassium (Cozaar) 100 mg PO DAILY [facility] Last Admin: 07/29/18 09:19 Dose: 100 mg Pantoprazole Sodium (Protonix Ec Tab) 40 mg PO 0600 [facility] Last Admin: 07/29/18 05:52 Dose: 40 mg Polyethylene Glycol (Miralax) 17 gm PO BID [facility] Last Admin: 07/29/18 17:19 Dose: 17 gm Sitagliptin Phosphate (Januvia) 50 mg PO DAILY [facility] Last Admin: 07/29/18 09:19 Dose: 50 mg - Labs Labs: 07/27/18 16:36 07/27/18 16:36 PT 11.0 SECONDS (9.4-12.5) 07/27/18 16:36 INR 0.99 07/27/18 16:36 APTT 26.7 Seconds (26.9-38.3) L 07/27/18 16:36 Assessment and Plan - Assessment and Plan (Free Text) Assessment: Pt seen and examined by me. I have reviewed the note of the medical transcriptionist and I agree with it. I have discussed the assessment and plan with the resident. I have reviewed the medications and the last labs.
--- NOTE | 2018-07-29 14:51 | CP.PCM.PCO ---
Additional Comments - Additional Comments Additional Comments: Pt seen and examined at bedside. In no acute distress. Elan lower ext w/ dressing c/d/i. On Lasix 40mg IV q12. Podiatry on consult. Physical therapy recommends home w/ services. Plan d/w PMD. Will continue to follow.
[2018-07-29] MEDS: Insulin Detemir 100 units/ml Vial (Levemir) SC SCH (22:55)
--- NOTE | 2018-07-30 01:24 | PN ---
DATE: 07/29/2018 The patient was seen and examined. I do agree with the note of the medical records field technician. I was involved in the plan of care. The patient has lower extremity edema. She has CHF secondary to diastolic dysfunction. She is diuresing well. Her Levemir is going to be continued for diabetes. She is also on Humalog three times a day. The patient has hypothyroidism. She has been on Norvasc and Cozaar for her hypertension. She has COPD. Praneeth Holden MD
[2018-07-30] MEDS: Albuterol-Ipratrop 3 mg / 0.5 (3 ml) UD IH SCH ×4 (01:56→20:39)
[2018-07-30 07:40] LABS: BASO # 0.02 K/mm3 (0.0-2.0); BASO % 0.2 % (0.0-3.0); EOS # 0.2 (0.0-0.7); EOS % 1.6 % (1.5-5.0); HEMOGLOBIN 10.7 g/dL (12.0-16.0); LYMPH % 18.6 % (22.0-35.0); MEAN CELL VOLUME 96.4 fl (80.0-105.0); MEAN CORPUSCULAR HEMOGLOBIN 29.9 pg (25.0-35.0); MEAN PLATELET VOLUME 8.8 fl (7.0-11.0); MONO # 0.5 (0.1-0.6); MONO % 4.8 % (1.0-6.0); RBC 3.58 10^6/uL (3.5-6.1); RED CELL DISTRIBUTION WIDTH 14.8 % (11.5-14.5); WHITE BLOOD COUNT 10.5 10^3/uL (4.5-11.0)
[2018-07-30 07:57] LABS: ALBUMIN 3.6 g/dL (3.0-4.8)
[2018-07-30 08:09] VITALS: RESP 20
[2018-07-30] MEDS ORDERED: metOLazone 5 MG TAB PO ONE (08:30)
[2018-07-30] MEDS: Insulin Lispro (humaLOG) MEDIUM Coverage SC SCH ×3 (08:37→17:16)
[2018-07-30] MEDS: Ammonium Lactate 12% Cream (140 g) TOP SCH (10:19)
[2018-07-30] MEDS: Enoxaparin 40 mg Syringe SC SCH (10:19)
[2018-07-30] MEDS: POLYETHYLENE GLYCOL 3350 17 GM/Dose PACKET PO SCH ×2 (10:19→17:17)
--- NOTE | 2018-07-30 11:11 | CP.PCM.PN ---
<Carlos Todd - Last Filed: 07/30/18 11:07> Subjective - Date & Time of Evaluation Date of Evaluation: 07/30/18 Time of Evaluation: 09:00 - Subjective Subjective: Progress Note for Dr. Holden Patient was seen and examined at bedside Patient states that her lower extremities are continuing to improve, however she has a little more pain inher thighs. She would like to walk some more with PT today, as she feels a little more constipated today. Patient is lying comfortably. She denied fever, chills, shortness of breath, chest pains, abdominal pains, nausea, vomiting, diarrhea. Objective - Vital Signs/Intake and Output Vital Signs (last 24 hours): Temp Pulse Resp BP Pulse Ox 97.9 F 84 20 138/70 97 07/30/18 06:00 07/30/18 06:00 07/30/18 06:00 07/30/18 10:19 07/30/18 06:00 Intake and Output: 07/30/18 07/30/18 06:59 18:59 Intake Total 620 Balance 620 - Medications Medications: Current Medications Acetaminophen (Tylenol 325mg Tab) 650 mg PO Q4H PRN PRN Reason: Pain, Mild (1-3) Albuterol/Ipratropium (Duoneb 3 Mg/0.5 Mg (3 Ml) Ud) 3 ml IH [id number] [facility] Last Admin: 07/30/18 08:40 Dose: 3 ml Albuterol/Ipratropium (Duoneb 3 Mg/0.5 Mg (3 Ml) Ud) 3 ml IH Q2H PRN PRN Reason: Shortness of Breath Amlodipine Besylate (Norvasc) 2.5 mg PO DAILY [facility] Last Admin: 07/30/18 10:19 Dose: 2.5 mg Atorvastatin Calcium (Lipitor) 10 mg PO HS [facility] Last Admin: 07/29/18 22:55 Dose: 10 mg Dextrose (Dextrose 50% Inj) 0 ml IV STAT PRN; Protocol PRN Reason: Hypoglycemia Protocol Enoxaparin Sodium (Lovenox) 40 mg SC DAILY [facility]; Protocol Last Admin: 07/30/18 10:19 Dose: 40 mg Furosemide (Lasix) 40 mg IVP Q12 [facility] Last Admin: 07/30/18 10:18 Dose: 40 mg Gabapentin (Neurontin) 100 mg PO DAILY [facility]; Protocol Last Admin: 07/30/18 10:19 Dose: 100 mg Dextrose (Dextrose 5% In Water 1000 Ml) 1,000 mls @ 0 mls/hr IV .Q0M PRN; Protocol PRN Reason: Hypoglycemia Protocol Insulin Detemir (Levemir) 30 unit SC HS [facility] Last Admin: 07/29/18 22:55 Dose: 30 u Insulin Human Lispro (Humalog Med) 0 units SC ACHS [facility]; Protocol Last Admin: 07/30/18 08:37 Dose: 1 units Insulin Human Lispro (Humalog) 10 units SC AC [facility] Lactic Acid (Lac-Hydrin 12% Cream (140 G)) 0 ea TOP DAILY [facility] Last Admin: 07/30/18 10:19 Dose: 1 applic Levothyroxine Sodium (Synthroid) 25 mcg PO 0600 [facility] Last Admin: 07/29/18 05:52 Dose: 25 mcg Losartan Potassium (Cozaar) 100 mg PO DAILY [facility] Last Admin: 07/30/18 10:18 Dose: 100 mg Pantoprazole Sodium (Protonix Ec Tab) 40 mg PO 0600 [facility] Last Admin: 07/29/18 05:52 Dose: 40 mg Polyethylene Glycol (Miralax) 17 gm PO BID [facility] Last Admin: 07/30/18 10:19 Dose: 17 gm Sitagliptin Phosphate (Januvia) 50 mg PO DAILY [facility] Last Admin: 07/30/18 10:18 Dose: 50 mg - Labs Labs: 07/30/18 07:15 07/30/18 07:15 PT 11.0 SECONDS (9.4-12.5) 07/27/18 16:36 INR 0.99 07/27/18 16:36 APTT 26.7 Seconds (26.9-38.3) L 07/27/18 16:36 - Constitutional Appears: No Acute Distress - Head Exam Head Exam: ATRAUMATIC, NORMAL INSPECTION, NORMOCEPHALIC - Eye Exam Eye Exam: EOMI, Normal appearance, PERRL - ENT Exam ENT Exam: Mucous Membranes Moist, Normal Exam - Neck Exam Neck Exam: Full ROM, Normal Inspection. absent: Lymphadenopathy - Respiratory Exam Respiratory Exam: Rales (bibasilar), NORMAL BREATHING PATTERN - Cardiovascular Exam Cardiovascular Exam: REGULAR RHYTHM, +S1, +S2. absent: Murmur - GI/Abdominal Exam GI & Abdominal Exam: Soft, Normal Bowel Sounds. absent: Tenderness - Neurological Exam Neurological Exam: Alert, Awake, CN II-XII Intact, Oriented x3 - Psychiatric Exam Psychiatric exam: Normal Affect, Normal Mood - Skin Skin Exam: Dry, Intact, Warm (b/l lower extremities excoriations, dressings opened to air) Assessment and Plan - Assessment and Plan (Free Text) Assessment: B/L stasis dermatitis B/L acute exacerbation of chronic lymphedema CHF 2/2 diastolic dysfunction IDDM COPD Pulmonary HTN Hypothyroidism Dyslipidemia Morbid obesity DVT ppx GI ppx Plan: patient is comfortable, we will continue to diurese the patient with lasix along with metolazone for acute exacerbation of CHF with worsening B/L lower extremity edema. Conitnue to monitor I&Os, and monitor electrolytes. Dr. Avendano podiatry consulted for b/l lower extremity stasis dermatitis, continue lac- hydrin BID, currently dressings opened to the air. Patient sees Dr. Avendano every two weeks for b/l lower extremity compression dressings. Patient is on januvia and insulin regimen for IDDM, 30 u HS levemir and will increase her humalog to 10 u TID. Continue ISS and monitor. Patient to continue gabapentin fo r DM nepropathy. Continue synthroid for hypothyroidism. Continue norvasc and cozaar for HTN. Duonebs for COPD, on NC. Continue atorvastatin for dyslipidemia. Seen reviewed and discussed with Dr. Holden <Praneeth Holden S - Last Filed: 07/30/18 18:32> Objective - Vital Signs/Intake and Output Vital Signs (last 24 hours): Temp Pulse Resp BP Pulse Ox 97.7 F 70 20 137/84 96 07/30/18 14:00 07/30/18 14:00 07/30/18 14:00 07/30/18 14:00 07/30/18 14:00 Intake and Output: 07/30/18 07/30/18 06:59 18:59 Intake Total 620 Balance 620 - Medications Medications: Current Medications Acetaminophen (Tylenol 325mg Tab) 650 mg PO Q4H PRN PRN Reason: Pain, Mild (1-3) Last Admin: 07/30/18 15:57 Dose: 650 mg Albuterol/Ipratropium (Duoneb 3 Mg/0.5 Mg (3 Ml) Ud) 3 ml IH [id number] [facility] Last Admin: 07/30/18 13:23 Dose: 3 ml Albuterol/Ipratropium (Duoneb 3 Mg/0.5 Mg (3 Ml) Ud) 3 ml IH Q2H PRN PRN Reason: Shortness of Breath Amlodipine Besylate (Norvasc) 2.5 mg PO DAILY [facility] Last Admin: 07/30/18 10:19 Dose: 2.5 mg Atorvastatin Calcium (Lipitor) 10 mg PO HS [facility] Last Admin: 07/29/18 22:55 Dose: 10 mg Dextrose (Dextrose 50% Inj) 0 ml IV STAT PRN; Protocol PRN Reason: Hypoglycemia Protocol Enoxaparin Sodium (Lovenox) 40 mg SC DAILY [facility]; Protocol Last Admin: 07/30/18 10:19 Dose: 40 mg Furosemide (Lasix) 40 mg IVP Q12 [facility] Last Admin: 07/30/18 10:18 Dose: 40 mg Gabapentin (Neurontin) 100 mg PO DAILY [facility]; Protocol Last Admin: 07/30/18 10:19 Dose: 100 mg Dextrose (Dextrose 5% In Water 1000 Ml) 1,000 mls @ 0 mls/hr IV .Q0M PRN; Protocol PRN Reason: Hypoglycemia Protocol Insulin Detemir (Levemir) 30 unit SC HS [facility] Last Admin: 07/29/18 22:55 Dose: 30 u Insulin Human Lispro (Humalog Med) 0 units SC ACHS [facility]; Protocol Last Admin: 07/30/18 17:16 Dose: 1 units Insulin Human Lispro (Humalog) 10 units SC AC [facility] Last Admin: 07/30/18 17:16 Dose: 10 units Lactic Acid (Lac-Hydrin 12% Cream (140 G)) 0 ea TOP DAILY [facility] Last Admin: 07/30/18 10:19 Dose: 1 applic Levothyroxine Sodium (Synthroid) 25 mcg PO 0600 [facility] Last Admin: 07/29/18 05:52 Dose: 25 mcg Losartan Potassium (Cozaar) 100 mg PO DAILY [facility] Last Admin: 07/30/18 10:18 Dose: 100 mg Pantoprazole Sodium (Protonix Ec Tab) 40 mg PO 0600 [facility] Last Admin: 07/29/18 05:52 Dose: 40 mg Polyethylene Glycol (Miralax) 17 gm PO BID [facility] Last Admin: 07/30/18 17:17 Dose: 17 gm Sitagliptin Phosphate (Januvia) 50 mg PO DAILY [facility] Last Admin: 07/30/18 10:18 Dose: 50 mg - Labs Labs: 07/30/18 07:15 07/30/18 07:15 PT 11.0 SECONDS (9.4-12.5) 07/27/18 16:36 INR 0.99 07/27/18 16:36 APTT 26.7 Seconds (26.9-38.3) L 07/27/18 16:36 Assessment and Plan - Assessment and Plan (Free Text) Assessment: Pt seen and examined by me. I have reviewed the note of the medical parasitologist and I agree with it. I have discussed the assessment and plan with the resident. I have reviewed the medications and the last labs.
[2018-07-30] MEDS: Insulin Lispro 1 UNITS/0.01 ML SC SCH ×3 (11:58→17:16)
--- NOTE | 2018-07-30 18:24 | CP.PCM.PN ---
<Carlos Benitezangely - Last Filed: 07/30/18 18:23> Subjective - Date & Time of Evaluation Date of Evaluation: 07/30/18 Time of Evaluation: 18:23 - Subjective Subjective: Podiatry Progress note for Dr. Kinney/Juan Alberto 78 female patient seen and evaluated for chronic lower extremity lymphedema. Patient denies any acute overnight events. Patient denies any other pedal complaints at this time. Denies N/F/V/CP and admits to shortness of breath Objective - Vital Signs/Intake and Output Vital Signs (last 24 hours): Temp Pulse Resp BP Pulse Ox 97.7 F 70 20 137/84 96 07/30/18 14:00 07/30/18 14:00 07/30/18 14:00 07/30/18 14:00 07/30/18 14:00 Intake and Output: 07/30/18 07/30/18 06:59 18:59 Intake Total 620 Balance 620 - Medications Medications: Current Medications Acetaminophen (Tylenol 325mg Tab) 650 mg PO Q4H PRN PRN Reason: Pain, Mild (1-3) Last Admin: 07/30/18 15:57 Dose: 650 mg Albuterol/Ipratropium (Duoneb 3 Mg/0.5 Mg (3 Ml) Ud) 3 ml IH [id number] [facility] Last Admin: 07/30/18 13:23 Dose: 3 ml Albuterol/Ipratropium (Duoneb 3 Mg/0.5 Mg (3 Ml) Ud) 3 ml IH Q2H PRN PRN Reason: Shortness of Breath Amlodipine Besylate (Norvasc) 2.5 mg PO DAILY [facility] Last Admin: 07/30/18 10:19 Dose: 2.5 mg Atorvastatin Calcium (Lipitor) 10 mg PO HS [facility] Last Admin: 07/29/18 22:55 Dose: 10 mg Dextrose (Dextrose 50% Inj) 0 ml IV STAT PRN; Protocol PRN Reason: Hypoglycemia Protocol Enoxaparin Sodium (Lovenox) 40 mg SC DAILY [facility]; Protocol Last Admin: 07/30/18 10:19 Dose: 40 mg Furosemide (Lasix) 40 mg IVP Q12 [facility] Last Admin: 07/30/18 10:18 Dose: 40 mg Gabapentin (Neurontin) 100 mg PO DAILY [facility]; Protocol Last Admin: 07/30/18 10:19 Dose: 100 mg Dextrose (Dextrose 5% In Water 1000 Ml) 1,000 mls @ 0 mls/hr IV .Q0M PRN; Protocol PRN Reason: Hypoglycemia Protocol Insulin Detemir (Levemir) 30 unit SC HS [facility] Last Admin: 07/29/18 22:55 Dose: 30 u Insulin Human Lispro (Humalog Med) 0 units SC ACHS [facility]; Protocol Last Admin: 07/30/18 17:16 Dose: 1 units Insulin Human Lispro (Humalog) 10 units SC AC [facility] Last Admin: 07/30/18 17:16 Dose: 10 units Lactic Acid (Lac-Hydrin 12% Cream (140 G)) 0 ea TOP DAILY [facility] Last Admin: 07/30/18 10:19 Dose: 1 applic Levothyroxine Sodium (Synthroid) 25 mcg PO 0600 [facility] Last Admin: 07/29/18 05:52 Dose: 25 mcg Losartan Potassium (Cozaar) 100 mg PO DAILY [facility] Last Admin: 07/30/18 10:18 Dose: 100 mg Pantoprazole Sodium (Protonix Ec Tab) 40 mg PO 0600 [facility] Last Admin: 07/29/18 05:52 Dose: 40 mg Polyethylene Glycol (Miralax) 17 gm PO BID [facility] Last Admin: 07/30/18 17:17 Dose: 17 gm Sitagliptin Phosphate (Januvia) 50 mg PO DAILY [facility] Last Admin: 07/30/18 10:18 Dose: 50 mg - Labs Labs: 07/30/18 07:15 07/30/18 07:15 PT 11.0 SECONDS (9.4-12.5) 07/27/18 16:36 INR 0.99 07/27/18 16:36 APTT 26.7 Seconds (26.9-38.3) L 07/27/18 16:36 - Constitutional Appears: Well, Non-toxic, No Acute Distress - Head Exam Head Exam: ATRAUMATIC, NORMOCEPHALIC - Extremities Exam Additional comments: B/L lower extremity focused exam: Vasc: DP/PT faintly palpable secondary to edema, CFT < 3 seconds to all digits, TG warm to warm, +2 pitting edema to b/l lower extremities Ortho: Tenderness to palpation of knee and thighs. No tenderness to palpation of b/l legs. NO pain upon calf compression bilaterally. Neuro: Gross sensation intact, protective sensation diminished Derm: B/L lower extremity lichenification with significant xerosis bilaterally. No open lesions, no drainage, no erythema, no clinical signs of infection. - Neurological Exam Neurological Exam: Alert, Awake, Oriented x3 - Psychiatric Exam Psychiatric exam: Normal Affect, Normal Mood Assessment and Plan - Assessment and Plan (Free Text) Assessment: 78F patient, with PMHx of COPD, DM, pulmonary HTN, obesity, seen and evaluated for chronic lower extremity lymphedema. Plan: Patient seen and evaluated Discussed patient plan Chart, labs, vitals reviewed; afebrile, VSS Lac-Hydrin applied to bilateral lower extremities BID Patient advised to keep lower extremities elevated while in bed B/L kept open to air at this time Unna Boots will be applied prior to discharge No surgical intervention at this time, patient stable from podiatry standpoint Will continue to follow patient while in house <Joshua Kinney - Last Filed: 07/31/18 08:38> Objective - Vital Signs/Intake and Output Vital Signs (last 24 hours): Temp Pulse Resp BP Pulse Ox 97.9 F 102 H 20 104/67 94 L 07/31/18 06:00 07/31/18 06:00 07/31/18 06:00 07/31/18 06:00 07/31/18 06:00 Intake and Output: 07/31/18 07/31/18 06:59 18:59 Intake Total 780 Output Total 350 Balance 430 - Medications Medications: Current Medications Acetaminophen (Tylenol 325mg Tab) 650 mg PO Q4H PRN PRN Reason: Pain, Mild (1-3) Last Admin: 07/30/18 15:57 Dose: 650 mg Albuterol/Ipratropium (Duoneb 3 Mg/0.5 Mg (3 Ml) Ud) 3 ml IH [id number] [facility] Last Admin: 07/31/18 01:27 Dose: 3 ml Albuterol/Ipratropium (Duoneb 3 Mg/0.5 Mg (3 Ml) Ud) 3 ml IH Q2H PRN PRN Reason: Shortness of Breath Amlodipine Besylate (Norvasc) 2.5 mg PO DAILY [facility] Last Admin: 07/30/18 10:19 Dose: 2.5 mg Atorvastatin Calcium (Lipitor) 10 mg PO HS [facility] Last Admin: 07/29/18 22:55 Dose: 10 mg Dextrose (Dextrose 50% Inj) 0 ml IV STAT PRN; Protocol PRN Reason: Hypoglycemia Protocol Enoxaparin Sodium (Lovenox) 40 mg SC DAILY [facility]; Protocol Last Admin: 07/30/18 10:19 Dose: 40 mg Furosemide (Lasix) 40 mg IVP Q12 [facility] Last Admin: 07/30/18 22:51 Dose: 40 mg Gabapentin (Neurontin) 100 mg PO DAILY [facility]; Protocol Last Admin: 07/30/18 10:19 Dose: 100 mg Guaifenesin (Robitussin) 100 mg PO Q4H PRN PRN Reason: Cough Dextrose (Dextrose 5% In Water 1000 Ml) 1,000 mls @ 0 mls/hr IV .Q0M PRN; Protocol PRN Reason: Hypoglycemia Protocol Insulin Detemir (Levemir) 30 unit SC HS [facility] Last Admin: 07/30/18 22:53 Dose: 30 u Insulin Human Lispro (Humalog Med) 0 units SC ACHS [facility]; Protocol Last Admin: 07/30/18 17:16 Dose: 1 units Insulin Human Lispro (Humalog) 10 units SC AC [facility] Last Admin: 07/30/18 17:16 Dose: 10 units Lactic Acid (Lac-Hydrin 12% Cream (140 G)) 0 ea TOP DAILY [facility] Last Admin: 07/30/18 10:19 Dose: 1 applic Levothyroxine Sodium (Synthroid) 25 mcg PO 0600 [facility] Last Admin: 07/31/18 05:58 Dose: 25 mcg Losartan Potassium (Cozaar) 100 mg PO DAILY [facility] Last Admin: 07/30/18 10:18 Dose: 100 mg Pantoprazole Sodium (Protonix Ec Tab) 40 mg PO 0600 [facility] Last Admin: 07/31/18 05:58 Dose: 40 mg Polyethylene Glycol (Miralax) 17 gm PO BID [facility] Last Admin: 07/30/18 17:17 Dose: 17 gm Sitagliptin Phosphate (Januvia) 50 mg PO DAILY [facility] Last Admin: 07/30/18 10:18 Dose: 50 mg - Labs Labs: 07/30/18 07:15 07/30/18 07:15 PT 11.0 SECONDS (9.4-12.5) 07/27/18 16:36 INR 0.99 07/27/18 16:36 APTT 26.7 Seconds (26.9-38.3) L 07/27/18 16:36 Attending/Attestation - Attestation I have personally seen and examined this patient.: Yes I have fully participated in the care of the patient.: Yes I have reviewed all pertinent clinical information, including history, physical exam and plan: Yes
--- NOTE | 2018-07-30 21:21 | PN ---
DATE: 07/30/2018 SUBJECTIVE: Patient was seen and examined. I do agree with the note of the resident medical officer. I was involved in the plan of care. The patient had acute CHF secondary to diastolic dysfunction. She is getting IV diuretic therapy with metolazone. She is on Norvasc and Cozaar for her hypertension. She is going to continue with Synthroid for her hypothyroidism. She is on Levemir, Humalog, and Januvia for her diabetes type 2. She has diabetic nephropathy. She has diabetic neuropathy. She is on Neurontin. The patient has pulmonary hypertension, and she was advised to go to Transitional Care Unit for rehab. She is not sure if she is going to go. She prefers to be discharged. Praneeth Holden MD
[2018-07-30] MEDS: Insulin Detemir 100 units/ml Vial (Levemir) SC SCH (22:53)
[2018-07-31] MEDS: Albuterol-Ipratrop 3 mg / 0.5 (3 ml) UD IH SCH ×3 (01:27→13:18)
[2018-07-31] MEDS: Pantoprazole 40 mg EC Tab PO SCH (05:58)
[2018-07-31] MEDS: Levothyroxine 25 MCG TAB PO SCH (05:58)
[2018-07-31 08:03] VITALS: PULSE 102; TEMP 97.9; O2SAT 94
[2018-07-31] MEDS ORDERED: guaiFENesin 100 mg/5 ml Syrup UD PO PRN (08:12)
--- NOTE | 2018-07-31 10:52 | CP.PCM.DIS ---
<PerezCarlos - Last Filed: 07/31/18 10:49> Provider - Provider Date of Admission: 07/28/18 16:24 Attending physician: Praneeth Holden MD Primary care physician: Praneeth Holden MD Consults: 07/27/18 20:30 Consult [Physician Consult] Routine Comment: Consulting Provider: Letty Avendano Consulting Physician: Letty Avendano Reason for Consult: B/L lower extremity wound 07/28/18 05:00 Diabetic Education Referral Routine Comment: Physician Instructions: Reason For Exam: met criteria Transition In Care/Readmission Reduction Routine Comment: Physician Instructions: Reason For Exam: met criteria 07/28/18 05:05 Inpatient RN NURSERY Core Measures Referral Routine Comment: Physician Instructions: Reason For Exam: met criteria 07/28/18 20:52 Social Work Referral Routine Comment: eval Physician Instructions: Reason For Exam: discharge planning Time Spent in preparation of Discharge (in minutes): 45 Hospital Course - Lab Results Lab Results: Most Recent Lab Values WBC 10.5 10^3/uL (4.5-11.0) 07/30/18 07:15 RBC 3.58 10^6/uL (3.5-6.1) 07/30/18 07:15 Hgb 10.7 g/dL (12.0-16.0) L 07/30/18 07:15 Hct 34.5 % (36.0-48.0) L 07/30/18 07:15 MCV 96.4 fl (80.0-105.0) 07/30/18 07:15 MCH 29.9 pg (25.0-35.0) 07/30/18 07:15 MCHC 31.0 g/dl (31.0-37.0) 07/30/18 07:15 RDW 14.8 % (11.5-14.5) H 07/30/18 07:15 Plt Count 291 10^3/uL (120.0-450.0) 07/30/18 07:15 MPV 8.8 fl (7.0-11.0) 07/30/18 07:15 Neut % (Auto) 74.8 % (50.0-68.0) H 07/30/18 07:15 Lymph % (Auto) 18.6 % (22.0-35.0) L 07/30/18 07:15 Eaton % (Auto) 4.8 % (1.0-6.0) 07/30/18 07:15 Eos % (Auto) 1.6 % (1.5-5.0) 07/30/18 07:15 Baso % (Auto) 0.2 % (0.0-3.0) 07/30/18 07:15 Lymph # (Auto) 2.0 (1.2-3.4) 07/30/18 07:15 Eaton # (Auto) 0.5 (0.1-0.6) 07/30/18 07:15 Eos # (Auto) 0.2 (0.0-0.7) 07/30/18 07:15 Baso # (Auto) 0.02 K/mm3 (0.0-2.0) 07/30/18 07:15 Absolute Neuts (auto) 7.87 (1.4-6.5) H 07/30/18 07:15 PT 11.0 SECONDS (9.4-12.5) 07/27/18 16:36 INR 0.99 07/27/18 16:36 APTT 26.7 Seconds (26.9-38.3) L 07/27/18 16:36 Sodium 138 mmol/L (132-148) 07/30/18 07:15 Potassium 4.8 mmol/L (3.6-5.0) 07/30/18 07:15 Chloride 98 mmol/L (98-107) 07/30/18 07:15 Carbon Dioxide 33 mmol/L (21-33) 07/30/18 07:15 Anion Gap 11 (10-20) 07/30/18 07:15 BUN 38 mg/dL (7-21) H 07/30/18 07:15 Creatinine 1.2 mg/dl (0.7-1.2) 07/30/18 07:15 Est GFR ( Amer) 53 07/30/18 07:15 Est GFR (Non-Af Amer) 43 07/30/18 07:15 POC Glucose (mg/dL) 163 mg/dL (65-110) H 07/31/18 06:19 Random Glucose 191 mg/dL (70-110) H 07/30/18 07:15 Calcium 9.0 mg/dL (8.4-10.5) 07/30/18 07:15 Phosphorus 4.7 mg/dL (2.5-4.5) H 07/30/18 07:15 Magnesium 2.0 mg/dL (1.7-2.2) 07/30/18 07:15 Total Bilirubin 0.2 mg/dL (0.2-1.3) 07/30/18 07:15 AST 17 U/L (14-36) 07/30/18 07:15 ALT 11 U/L (7-56) 07/30/18 07:15 Alkaline Phosphatase 66 U/L (38-126) 07/30/18 07:15 Lactate Dehydrogenase 590 U/L (333-699) 07/27/18 16:36 Total Creatine Kinase 67 U/L (35-230) 07/27/18 16:36 Troponin I < 0.01 ng/mL 07/27/18 16:36 NT-Pro-B Natriuret Pep 59.8 pg/mL (0-450) 07/27/18 16:36 Total Protein 7.4 g/dL (5.8-8.3) 07/30/18 07:15 Albumin 3.6 g/dL (3.0-4.8) 07/30/18 07:15 Globulin 3.8 gm/dL 07/30/18 07:15 Albumin/Globulin Ratio 1.0 (1.1-1.8) L 07/30/18 07:15 - Hospital Course Hospital Course: 78 F with a PMHx of HTN, CHF with diastolic dysfunction, COPD, CVA, anemia, hx uncontrolled dm, DM2, LLE cellulitis, OA, lyphedema, presents with chronic leg swelling, difficulty ambulating, mild cough that began approximately last thursday and progressively worsened. Patient was seen and examined at bedside. patient is comfortable, patient has been diuresed with lasix and intermittent metolazone, for acute exacerbation of CHF with worsening B/L lower extremity edema. Dr. Avendano podiatry consulted for b/l lower extremity stasis dermatitis, continue lac-hydrin BID, currently dressings opened to the air. Patient sees Dr. Avendano every two weeks for b/l lower extremity compression dressings. Patient is on januvia and insulin regimen for IDDM, 30 u HS levemir and will increase her humalog to 10 u TID. Patient to continue gabapentin for DM nepropathy. Continue synthroid for hypothyroidism. Continue norvasc and cozaar for HTN. Duonebs for COPD, on NC. Continue atorvastatin for dyslipidemia. Upon discharge: 1. Patient is to follow up with PMD, Dr. White, within 3-5 days, please note that your Furosemide dosage has been increased from 40mg once a day to now 40mg twice a day. 2. Patient is to follow up with Cardiology as per PMD 3. Patient is to follow up with Podiatry within 1 week Discharge Exam - Head Exam Head Exam: ATRAUMATIC, NORMOCEPHALIC - Eye Exam Eye Exam: EOMI, Normal appearance, PERRL Pupil Exam: NORMAL ACCOMODATION, PERRL - ENT Exam ENT Exam: Mucous Membranes Moist - Respiratory Exam Respiratory Exam: Clear to PA & Lateral, NORMAL BREATHING PATTERN, UNREMARKABLE - Cardiovascular Exam Cardiovascular Exam: REGULAR RHYTHM, +S1, +S2 - GI/Abdominal Exam GI & Abdominal Exam: Normal Bowel Sounds, Soft. absent: Tenderness - Neurological Exam Neurological exam: Alert, CN II-XII Intact, Oriented x3, Reflexes Normal - Psychiatric Exam Psychiatric exam: Normal Affect, Normal Mood - Skin Additional comments: b/l LE stasis dermatitis Discharge Plan - Discharge Medications Prescriptions: Furosemide [Lasix] 40 mg PO BID #60 tab - Follow Up Plan Condition: GOOD Disposition: HOME/ ROUTINE Instructions: Heart Failure (DC), Pulmonary Edema (DC), Cellulitis (DC), Ascites (DC) Additional Instructions: 1. Patient is to follow up with PMD within 3-5 days, please note that your Furosemide dosage has been increased from 40mg once a day to now 40mg twice a day. 2. Patient is to follow up with Cardiology as per PMD 3. Patient is to follow up with Podiatry within 1 week 4. Should symptoms change or worsen please visit the nearest ED Referrals: Gladys White MD [Family Provider] - Praneeth Holden MD [Primary Care Provider] - Letty Avendano DPM [Staff Provider] - <Praneeth Holden - Last Filed: 07/31/18 18:26> Provider - Provider Date of Admission: 07/28/18 16:24 Attending physician: Praneeth Holden MD Primary care physician: Praneeth Holden MD Consults: 07/27/18 20:30 Consult [Physician Consult] Routine Comment: Consulting Provider: Letty Avendano Consulting Physician: Letty Avendano Reason for Consult: B/L lower extremity wound 07/28/18 05:00 Diabetic Education Referral Routine Comment: Physician Instructions: Reason For Exam: met criteria Transition In Care/Readmission Reduction Routine Comment: Physician Instructions: Reason For Exam: met criteria 07/28/18 05:05 Inpatient RN NURSERY Core Measures Referral Routine Comment: Physician Instructions: Reason For Exam: met criteria 07/28/18 20:52 Social Work Referral Routine Comment: eval Physician Instructions: Reason For Exam: discharge planning Hospital Course - Lab Results Lab Results: Most Recent Lab Values WBC 10.5 10^3/uL (4.5-11.0) 07/30/18 07:15 RBC 3.58 10^6/uL (3.5-6.1) 07/30/18 07:15 Hgb 10.7 g/dL (12.0-16.0) L 07/30/18 07:15 Hct 34.5 % (36.0-48.0) L 07/30/18 07:15 MCV 96.4 fl (80.0-105.0) 07/30/18 07:15 MCH 29.9 pg (25.0-35.0) 07/30/18 07:15 MCHC 31.0 g/dl (31.0-37.0) 07/30/18 07:15 RDW 14.8 % (11.5-14.5) H 07/30/18 07:15 Plt Count 291 10^3/uL (120.0-450.0) 07/30/18 07:15 MPV 8.8 fl (7.0-11.0) 07/30/18 07:15 Neut % (Auto) 74.8 % (50.0-68.0) H 07/30/18 07:15 Lymph % (Auto) 18.6 % (22.0-35.0) L 07/30/18 07:15 Eaton % (Auto) 4.8 % (1.0-6.0) 07/30/18 07:15 Eos % (Auto) 1.6 % (1.5-5.0) 07/30/18 07:15 Baso % (Auto) 0.2 % (0.0-3.0) 07/30/18 07:15 Lymph # (Auto) 2.0 (1.2-3.4) 07/30/18 07:15 Eaton # (Auto) 0.5 (0.1-0.6) 07/30/18 07:15 Eos # (Auto) 0.2 (0.0-0.7) 07/30/18 07:15 Baso # (Auto) 0.02 K/mm3 (0.0-2.0) 07/30/18 07:15 Absolute Neuts (auto) 7.87 (1.4-6.5) H 07/30/18 07:15 PT 11.0 SECONDS (9.4-12.5) 07/27/18 16:36 INR 0.99 07/27/18 16:36 APTT 26.7 Seconds (26.9-38.3) L 07/27/18 16:36 Sodium 138 mmol/L (132-148) 07/30/18 07:15 Potassium 4.8 mmol/L (3.6-5.0) 07/30/18 07:15 Chloride 98 mmol/L (98-107) 07/30/18 07:15 Carbon Dioxide 33 mmol/L (21-33) 07/30/18 07:15 Anion Gap 11 (10-20) 07/30/18 07:15 BUN 38 mg/dL (7-21) H 07/30/18 07:15 Creatinine 1.2 mg/dl (0.7-1.2) 07/30/18 07:15 Est GFR ( Amer) 53 07/30/18 07:15 Est GFR (Non-Af Amer) 43 07/30/18 07:15 POC Glucose (mg/dL) 228 mg/dL (65-110) H 07/31/18 11:26 Random Glucose 191 mg/dL (70-110) H 07/30/18 07:15 Calcium 9.0 mg/dL (8.4-10.5) 07/30/18 07:15 Phosphorus 4.7 mg/dL (2.5-4.5) H 07/30/18 07:15 Magnesium 2.0 mg/dL (1.7-2.2) 07/30/18 07:15 Total Bilirubin 0.2 mg/dL (0.2-1.3) 07/30/18 07:15 AST 17 U/L (14-36) 07/30/18 07:15 ALT 11 U/L (7-56) 07/30/18 07:15 Alkaline Phosphatase 66 U/L (38-126) 07/30/18 07:15 Lactate Dehydrogenase 590 U/L (333-699) 07/27/18 16:36 Total Creatine Kinase 67 U/L (35-230) 07/27/18 16:36 Troponin I < 0.01 ng/mL 07/27/18 16:36 NT-Pro-B Natriuret Pep 59.8 pg/mL (0-450) 07/27/18 16:36 Total Protein 7.4 g/dL (5.8-8.3) 07/30/18 07:15 Albumin 3.6 g/dL (3.0-4.8) 07/30/18 07:15 Globulin 3.8 gm/dL 07/30/18 07:15 Albumin/Globulin Ratio 1.0 (1.1-1.8) L 07/30/18 07:15 - Hospital Course Hospital Course: Pt seen and examined by me. I have reviewed the note of the biomedical analytical scientist and I agree with it. I have discussed the assessment and plan with the resident. I have reviewed the medications and the last labs.
[2018-07-31] MEDS: Insulin Lispro 1 UNITS/0.01 ML SC SCH (10:58)
[2018-07-31] MEDS: Insulin Lispro (humaLOG) MEDIUM Coverage SC SCH (10:58)
--- NOTE | 2018-07-31 10:58 | CP.PCM.PN ---
<Maci Woodall - Last Filed: 07/31/18 10:54> Subjective - Date & Time of Evaluation Date of Evaluation: 07/31/18 Time of Evaluation: 10:54 - Subjective Subjective: Podiatry Progress note: Dr. Kinney/Juan Alberto 78F patient seen and examined for chronic lower extremity lymphedema. Patient resting comfortably and in NAD. Patient states that her legs are sore today. Denies nausea/vomiting/fever/chills, endorses shortness of breath. Objective - Vital Signs/Intake and Output Vital Signs (last 24 hours): Temp Pulse Resp BP Pulse Ox 97.9 F 102 H 20 104/67 94 L 07/31/18 06:00 07/31/18 06:00 07/31/18 06:00 07/31/18 06:00 07/31/18 06:00 Intake and Output: 07/31/18 07/31/18 06:59 18:59 Intake Total 780 Output Total 350 Balance 430 - Medications Medications: Current Medications Acetaminophen (Tylenol 325mg Tab) 650 mg PO Q4H PRN PRN Reason: Pain, Mild (1-3) Last Admin: 07/30/18 15:57 Dose: 650 mg Albuterol/Ipratropium (Duoneb 3 Mg/0.5 Mg (3 Ml) Ud) 3 ml IH [id number] [facility] Last Admin: 07/31/18 09:07 Dose: 3 ml Albuterol/Ipratropium (Duoneb 3 Mg/0.5 Mg (3 Ml) Ud) 3 ml IH Q2H PRN PRN Reason: Shortness of Breath Amlodipine Besylate (Norvasc) 2.5 mg PO DAILY [facility] Last Admin: 07/30/18 10:19 Dose: 2.5 mg Atorvastatin Calcium (Lipitor) 10 mg PO HS [facility] Last Admin: 07/29/18 22:55 Dose: 10 mg Dextrose (Dextrose 50% Inj) 0 ml IV STAT PRN; Protocol PRN Reason: Hypoglycemia Protocol Enoxaparin Sodium (Lovenox) 40 mg SC DAILY [facility]; Protocol Last Admin: 07/30/18 10:19 Dose: 40 mg Furosemide (Lasix) 40 mg IVP Q12 [facility] Last Admin: 07/30/18 22:51 Dose: 40 mg Gabapentin (Neurontin) 100 mg PO DAILY [facility]; Protocol Last Admin: 07/30/18 10:19 Dose: 100 mg Guaifenesin (Robitussin) 100 mg PO Q4H PRN PRN Reason: Cough Dextrose (Dextrose 5% In Water 1000 Ml) 1,000 mls @ 0 mls/hr IV .Q0M PRN; Protocol PRN Reason: Hypoglycemia Protocol Insulin Detemir (Levemir) 30 unit SC HS [facility] Last Admin: 07/30/18 22:53 Dose: 30 u Insulin Human Lispro (Humalog Med) 0 units SC ACHS [facility]; Protocol Last Admin: 07/30/18 17:16 Dose: 1 units Insulin Human Lispro (Humalog) 10 units SC AC [facility] Last Admin: 07/30/18 17:16 Dose: 10 units Lactic Acid (Lac-Hydrin 12% Cream (140 G)) 0 ea TOP DAILY [facility] Last Admin: 07/30/18 10:19 Dose: 1 applic Levothyroxine Sodium (Synthroid) 25 mcg PO 0600 [facility] Last Admin: 07/31/18 05:58 Dose: 25 mcg Losartan Potassium (Cozaar) 100 mg PO DAILY [facility] Last Admin: 07/30/18 10:18 Dose: 100 mg Pantoprazole Sodium (Protonix Ec Tab) 40 mg PO 0600 [facility] Last Admin: 07/31/18 05:58 Dose: 40 mg Polyethylene Glycol (Miralax) 17 gm PO BID [facility] Last Admin: 07/30/18 17:17 Dose: 17 gm Sitagliptin Phosphate (Januvia) 50 mg PO DAILY [facility] Last Admin: 07/30/18 10:18 Dose: 50 mg - Labs Labs: 07/30/18 07:15 07/30/18 07:15 PT 11.0 SECONDS (9.4-12.5) 07/27/18 16:36 INR 0.99 07/27/18 16:36 APTT 26.7 Seconds (26.9-38.3) L 07/27/18 16:36 - Constitutional Appears: Non-toxic, No Acute Distress - Head Exam Head Exam: ATRAUMATIC, NORMOCEPHALIC - Eye Exam Eye Exam: Normal appearance - Extremities Exam Additional comments: B/L lower extremity focused exam: Vasc: DP/PT faintly palpable secondary to edema, CFT < 3 seconds to all digits, TG warm to warm, +2 pitting edema to b/l lower extremities Ortho: Tenderness to palpation of knee and thighs. No tenderness to palpation of b/l legs. NO pain upon calf compression bilaterally. Neuro: Gross sensation intact, protective sensation diminished Derm: B/L lower extremity lichenification with significant xerosis bilaterally. No open lesions, no drainage, no erythema, no clinical signs of infection. - Neurological Exam Neurological Exam: Alert, Awake, Oriented x3 - Psychiatric Exam Psychiatric exam: Normal Affect, Normal Mood Assessment and Plan - Assessment and Plan (Free Text) Assessment: 78F patient with chronic lower extremity lymphedema; stable Plan: Patient seen and evaluated with Dr. Nirmal SUAREZ Lac-Hydrin applied to bilateral lower extremities Patient advised to keep lower extremities elevated while in bed Unna boots applied to b/l lower extremities; dressings to be left C/D/I Patient to follow up as outpatient in [facility] <Joshua Kinney - Last Filed: 07/31/18 14:17> Objective - Vital Signs/Intake and Output Vital Signs (last 24 hours): Temp Pulse Resp BP Pulse Ox 97.9 F 102 H 20 122/74 94 L 07/31/18 06:00 07/31/18 06:00 07/31/18 06:00 07/31/18 10:59 07/31/18 06:00 Intake and Output: 07/31/18 07/31/18 06:59 18:59 Intake Total 780 Output Total 350 Balance 430 - Medications Medications: Current Medications Acetaminophen (Tylenol 325mg Tab) 650 mg PO Q4H PRN PRN Reason: Pain, Mild (1-3) Last Admin: 07/30/18 15:57 Dose: 650 mg Albuterol/Ipratropium (Duoneb 3 Mg/0.5 Mg (3 Ml) Ud) 3 ml IH [id number] [facility] Last Admin: 07/31/18 13:18 Dose: 3 ml Albuterol/Ipratropium (Duoneb 3 Mg/0.5 Mg (3 Ml) Ud) 3 ml IH Q2H PRN PRN Reason: Shortness of Breath Amlodipine Besylate (Norvasc) 2.5 mg PO DAILY [facility] Last Admin: 07/31/18 10:59 Dose: 2.5 mg Atorvastatin Calcium (Lipitor) 10 mg PO HS [facility] Last Admin: 07/29/18 22:55 Dose: 10 mg Dextrose (Dextrose 50% Inj) 0 ml IV STAT PRN; Protocol PRN Reason: Hypoglycemia Protocol Enoxaparin Sodium (Lovenox) 40 mg SC DAILY [facility]; Protocol Last Admin: 07/31/18 11:00 Dose: 40 mg Furosemide (Lasix) 40 mg IVP Q12 [facility] Last Admin: 07/31/18 11:01 Dose: Not Given Gabapentin (Neurontin) 100 mg PO DAILY [facility]; Protocol Last Admin: 07/31/18 10:59 Dose: 100 mg Guaifenesin (Robitussin) 100 mg PO Q4H PRN PRN Reason: Cough Last Admin: 07/31/18 11:00 Dose: 100 mg Dextrose (Dextrose 5% In Water 1000 Ml) 1,000 mls @ 0 mls/hr IV .Q0M PRN; Protocol PRN Reason: Hypoglycemia Protocol Insulin Detemir (Levemir) 30 unit SC HS [facility] Last Admin: 07/30/18 22:53 Dose: 30 u Insulin Human Lispro (Humalog Med) 0 units SC ACHS [facility]; Protocol Last Admin: 07/31/18 10:58 Dose: 1 units Insulin Human Lispro (Humalog) 10 units SC AC [facility] Last Admin: 07/31/18 10:58 Dose: 10 units Lactic Acid (Lac-Hydrin 12% Cream (140 G)) 0 ea TOP DAILY [facility] Last Admin: 07/31/18 11:01 Dose: 1 applic Levothyroxine Sodium (Synthroid) 25 mcg PO 0600 [facility] Last Admin: 07/31/18 05:58 Dose: 25 mcg Losartan Potassium (Cozaar) 100 mg PO DAILY [facility] Last Admin: 07/31/18 10:59 Dose: 100 mg Pantoprazole Sodium (Protonix Ec Tab) 40 mg PO 0600 [facility] Last Admin: 07/31/18 05:58 Dose: 40 mg Polyethylene Glycol (Miralax) 17 gm PO BID [facility] Last Admin: 07/31/18 10:59 Dose: 17 gm Sitagliptin Phosphate (Januvia) 50 mg PO DAILY [facility] Last Admin: 07/31/18 10:59 Dose: 50 mg - Labs Labs: 07/30/18 07:15 07/30/18 07:15 PT 11.0 SECONDS (9.4-12.5) 07/27/18 16:36 INR 0.99 07/27/18 16:36 APTT 26.7 Seconds (26.9-38.3) L 07/27/18 16:36 Attending/Attestation - Attestation I have personally seen and examined this patient.: Yes I have fully participated in the care of the patient.: Yes I have reviewed all pertinent clinical information, including history, physical exam and plan: Yes
[2018-07-31] MEDS: POLYETHYLENE GLYCOL 3350 17 GM/Dose PACKET PO SCH (10:59)
[2018-07-31] MEDS: Enoxaparin 40 mg Syringe SC SCH (11:00)
[2018-07-31] MEDS: Ammonium Lactate 12% Cream (140 g) TOP SCH (11:01)
[2018-07-31 11:10] VITALS: BP 122/74
--- NOTE | 2018-08-01 03:06 | DS ---
HOSPITAL COURSE: The patient was seen and examined. I do agree with the note of the medical doctor. I was involved in the plan of care. The patient is currently comfortable. She had acute CHF secondary to diastolic dysfunction. She has improvement of her lower extremity edema. She is now able to ambulate. She was seen by Physical Therapy and it was advised that she go home with services. The patient has diabetes type 2, she is going to continue her insulin with Levemir and Humalog. The patient is on Duoneb treatment. She is going to follow up with Dr. White in one week. The patient is on Synthroid for her hypothyroidism. She is on gabapentin for her neuropathy. She is comfortable. She is eating well and she prefers to go home. Praneeth Holden MD
== END 2018-07-31 15:10 | disposition home health service (06) | DRG 291 ==
LOC: ED 16:10 → ERH 17:41 → 5RSO 19:07 → OBSVTOIN 07-28 16:24
PROVIDERS: ADMIT Internal Medicine Nephrology; ATTEND Internal Medicine Nephrology
DX: I11.0 Hypertensive heart disease with heart failure (principal); I50.31 Acute diastolic (congestive) heart failure; Z68.41 Body mass index [BMI] 40.0-44.9, adult; L03.116 Cellulitis of left lower limb; I89.0 Lymphedema, not elsewhere classified; J44.9 Chronic obstructive pulmonary disease, unspecified; R26.2 Difficulty in walking, not elsewhere classified; M79.89 Other specified soft tissue disorders; Z86.73 Personal history of transient ischemic attack (TIA), and cerebral infarction without residual deficits; E66.01 Morbid (severe) obesity due to excess calories; Z79.4 Long term (current) use of insulin; Z79.890 Hormone replacement therapy; R35.0 Frequency of micturition; E11.42 Type 2 diabetes mellitus with diabetic polyneuropathy; D64.9 Anemia, unspecified; I87.2 Venous insufficiency (chronic) (peripheral); E03.9 Hypothyroidism, unspecified; E78.5 Hyperlipidemia, unspecified; I27.20 Pulmonary hypertension, unspecified; K59.00 Constipation, unspecified; Z90.49 Acquired absence of other specified parts of digestive tract